=== PATIENT | male | born 1945 | race Caucasian/White ===

== ENCOUNTER 2019-08-20 14:40 | Outpatient (CLI) | payer MEDICARE, OTHER, SELFPAY ==
--- NOTE | 2019-08-20 14:57 | CT_ITS ---
WS: [id number] CT ANGIOGRAM CEREBRAL AND CAROTID ARTERIES HISTORY: DYSEQUILIBRIUM, HEAD INJURY TECHNIQUE: CT angiogram is performed of the carotid and cerebral arteries. During arterial injection imaging is obtained from the skull vertex to the aortic arch in 1.25 mm imaging. Coronal and sagittal reformats are submitted. Additional multi planar reformats of the carotid and cerebral arteries are submitted, MIP imaging also reviewed. NASCET criteria utilized. All CT scans at [facility] use at least one of these dose optimization techniques: automated exposure control; mA and/or kV ad justment per patient size (includes targeted exams where dose is matched to clinical indication); or iterative reconstruction. CONTRAST: Omnipaque 350; 95 mL IV. DLP: 2041.16 mGycm COMPARISON: MRI carotids 05/07/2019 Carotid Angiogram: Right carotid: Common carotid artery: Tortuous with mild intimal thickening. No stenosis Internal carotid artery: Mild atherosclerosis with no stenosis. External carotid artery: Patent. Left carotid: Common carotid artery: Mild narrowing of the origin from the arch. No significant stenosis. Portion o f the proximal common carotid artery is obscured by contrast artifact. Internal carotid artery: Mild calcified plaque. No stenosis. External carotid artery: Patent. Right vertebral artery: Unremarkable. Left vertebral artery: Unremarkable. Arises normally from the subclavian artery. Subclavian arteries: No central stenosis. Near the origin of the axillary artery cannot exclude steno sis due to artifact. Upper thorax: Normal. Thyroid gland: Mildly enlarged nodular thyroid. Osseous structures: Cervical spondylosis with degenerative changes in the disc. No fractures. Mild an terior wedging of T1. CEREBRAL ANGIOGRAM: Noncontrast examination of the brain is negative for infarct or mass. Moderate bilateral cerebral and cerebellar atrophy. Mild chronic microvascular ischemic disease. Intracranial vertebral arteries: Mild atherosclerosis of the distal RIGHT vertebral artery with no st enosis. Basilar artery: No significant stenosis or occlusion. No aneurysm. Intracranial Internal carotid arteries: No stenosis. Mild atherosclerotic plaque through the cavernou s sinuses. Middle cerebral arteries: Normal. Anterior cerebral arteries and ACOM: Normal. Posterior cerebral arteries and PCOM's: Normal. Dural venous sinuses are normally enhancing. Mastoid air cells: Normal. Paranasal sinuses: Normal. Calvarium: Normal. CT/CT angio headneck* [id number] IMPRESSION: 1. Bilateral carotid artery stenosis less than 50%. 2. Mild atherosclerosis intracranial carotid arteries through the cavernous si nuses. 3. Bilateral symmetric atrophy and volume loss in the cerebellum and cerebrum.
[2019-08-20 15:18] LABS: Blood Urea Nitrogen 10 mg/dL (8-23)
[2019-08-20] MEDS: iohexol 350 mg/mL 100 mL Btl IV (15:28)
== END 2019-08-20 14:41 | disposition home or self-care (01) ==
PROVIDERS: Radiology Diagnostic Radiology; Family Provider Family Medicine; PCP Family Medicine; Visit Provider Specialist
DX: I65.23 Occlusion and stenosis of bilateral carotid arteries (principal); R51 Headache; R42 Dizziness and giddiness
CPT/HCPCS: 70496; 70498; 82565; 84520; Q9967

== ENCOUNTER 2019-09-24 07:53 | Day surgery (SDC) | payer MEDICARE, OTHER, SELFPAY ==
[2019-09-23 14:06] VITALS: BMI 27.0
--- NOTE | 2019-09-24 08:14 | ANES.PREANE2 ---
Pre-Anesthetic Assessment Pre-Anesthetic Assessment: Height/Weight: Height 1.8 m Weight 87.997 kg Preop Diagnosis: Polyps and GERD Proposed Procedure: Operation Date: 09/24/19 09:30 Proposed Procedures p EGD poss Dilation/Colonscopy(Not Applicable) - Miguel Watson MD s Colonoscopy(Not Applicable) - Miguel Watson MD Familial anesthetic complications: No Was Beta Elsy taken within 24 hours: N/A Last intake: NPO except jello since monday NPO to liquids since 1000 pm Social: Social History: Tobacco and No alcohol Exam: Pre-Anes Outpt Exam: alert, oriented x 3, clear to auscultation bilaterally and regular rate & rhythm Airway: Cervical ROM: WNL MP: 4 Dentition: False Additional comments: large tongue Pulmonary: Pulmonary: Sleep apnea (CPAP) CV/HEM: CV/HEM: HTN : : None reported Hepatic: Hepatic: None reported GI: GI: GERD Comments: patient vomited up some of his prep yesterday, no longer having any active reflux of prep Metabolic: Metabolic: None reported Musc/skel: Comments: Hx of broken hip, tendency to fall so uses walker, falls have been worked up but are idiopathic, neck pain since a fall on august 04 - will see neurosurgeon in september. No fracture per patient Neuropsych: Comments: poor equilibrium - unknown etiology Anesthetic Plan: ASA status: 3 Anesthesia: MAC Risk of > 500 ml blood loss (7ml/kg in children): No PFSH Anesthesia PFSH: Social History Smoking and tobacco status: never smoked Alcohol intake: never Lives independently: Yes Household members: spouse Marital status: service: Yes Current occupational status: retired History of recent travel: No Data Anesthesia Cardiac Studies: No Data to Display
[2019-09-24 09:10] VITALS: BP 144/89; PULSE 92; RESP 18; TEMP 36.9; O2SAT 97
[2019-09-24] MEDS: sodium chloride 0.9% 1,000 ML 30 ML (09:15)
--- NOTE | 2019-09-24 11:34 | W.PM.OPSUD ---
Surgery/Procedure H&P Update DATE OF PROCEDURE: September 24, 2019 DATE H&P PERFORMED: 08/27/19 H&P UPDATE INFORMATION: I have reviewed H&P completed within last 30 days, I have examined patient prior to procedure and No changes to prior documentation PREOP DIAGNOSIS: Dysphagia GERD PLANNED PROCEDURE: Operation Date: 09/24/19 09:30 Proposed Procedures p EGD poss Dilation/Colonscopy(Not Applicable) - Miguel Watson MD s Colonoscopy(Not Applicable) - Miguel Watson MD
[2019-09-24 11:35] VITALS: BP 104/66; PULSE 80; RESP 16; TEMP 36.4; O2SAT 99
--- NOTE | 2019-09-24 11:40 | ANE.PACU2 ---
 Inpatient post-anesthesia follow up: Airway intact: Yes Vital signs: Temperature 98.5 F Pulse Rate 92 Respiratory Rate 18 Blood Pressure 144/89 Pulse Oximetry 97 Oxygen Delivery Me thod Room Air Oxygen Flow Rate Fraction of Inspir ed Oxygen Hydration adequate: Yes Nausea and vomiting: No Pain level: 1 Mental status: Baseline
[2019-09-24 11:51] VITALS: BP 129/80; PULSE 81; RESP 17; TEMP 36.3; O2SAT 97
== END 2019-09-24 12:24 | disposition home or self-care (01) ==
PROVIDERS: Family Provider Family Medicine; PCP Family Medicine; Visit Provider Surgery
PROC: 0DJD8ZZ Inspection of Lower Intestinal Tract, Via Natural or Artificial Opening Endoscopic (ICD-10-PCS; CPT 45378; 2019-09-24 09:30)
DX: K21.9 Gastro-esophageal reflux disease without esophagitis (principal); R13.10 Dysphagia, unspecified; K57.30 Diverticulosis of large intestine without perforation or abscess without bleeding; K64.8 Other hemorrhoids; K44.9 Diaphragmatic hernia without obstruction or gangrene; K29.70 Gastritis, unspecified, without bleeding; D12.0 Benign neoplasm of cecum; Z79.82 Long term (current) use of aspirin; N40.0 Benign prostatic hyperplasia without lower urinary tract symptoms; E78.5 Hyperlipidemia, unspecified; G47.30 Sleep apnea, unspecified; I10 Essential (primary) hypertension
CPT/HCPCS: 12345; 43235; 45385; 88305; J2704; J7030

== ENCOUNTER 2019-10-21 07:48 | Outpatient (CLI) | payer MEDICARE, OTHER, SELFPAY ==
--- NOTE | 2019-10-21 08:01 | MR_ITS ---
WS: [id number] MRI BRAIN WITH AND WITHOUT CONTRAST HISTORY: ABNORMAL FINDINGS ON DIAGNOSTIC IMAGING OF SKULL AND HEAD COMPARISON: 05/03/2019 and 08/20/2019 TECHNIQUE: Multiplanar imaging performed through the brain with Prohance 17 ml's IV. No acute infarcts are seen. Suarez-white matter differentiation is well preserved. Mild symmetric atrop hy. Increased CSF surrounding the frontal lobes from cerebral atrophy. No evidence for an acute or re mote extra-axial hemorrhage. No midline shift. Very mild chronic microvascular ischemic disease. No p rior infarct. No susceptibility artifacts or prior lacunar infarcts. Ventricles and extra-axial spaces are normal. Clivus and pituitary gland are normal. Visualized posterior fossa and brainstem are also normal. Postcontrast images are negative for masses or vascular malformations. Dural venous sinuses are normal. Paranasal sinuses: Small mucous retention cysts in the maxillary sinuses. Mild enhancement in the pos terior RIGHT ethmoid air cell. Very minimal mucoperiosteal thickening remaining sinuses. No air-fluid levels. Mastoid air cells: Normal. Calvarium and scalp: Normal. MR/MR head wo/w con [id number] IMPRESSION: 1. No acute infarct or mass. 2. Moderate atrophy similar to the prior study with mild chronic microvascular ischemic disease.
--- NOTE | 2019-10-21 08:01 | MR_ITS ---
WS: [id number] MRI CERVICAL SPINE with and without contrast HISTORY: CERVICAL STENOSIS OF SPINE COMPARISON: 05/03/2019. Multiplanar imaging of the cervical spine performed with and without contrast. New since the prior examination is 2.2 mm anterolisthesis of C2. Seen best on the STIR sagittal seque nce is increased fluid and mild widening of the C2-3 RIGHT facet joint. No marrow edema or fracture. Multilevel degenerative disc disease with osteophytes and disc bulging throughout the cervical spine from C3-4 to C6-7. Craniocervical junction, C1 and C2 relationship, odontoid process and soft tissues are normal. C2-C3: Normal. C3-C4: Diffuse osteophytic ridging and disc bulging. Moderate to severe bilateral foraminal stenosis, similar to the prior study. No significant central stenosis. C4-C5: Diffuse osteophytic ridging with effacement of the ventral thecal sac. Moderate to severe bila teral foraminal stenosis and mild central stenosis. C5-C6: Complete effacement of CSF due to osteophytic ridging and disc disease. Severe bilateral lizy inal stenosis, greatest on the RIGHT with mild central stenosis. Mild central stenosis. Similar to th e prior study. C6-C7: Diffuse osteophytic ridging and annular disc bulging. There is contact on the cord with severe bilateral foraminal stenosis and mild central stenosis. C7-T1: No significant stenosis. No evidence for discitis or osteomyelitis. No enhancing masses are identified. Posterior fossa is neg ative. MR/MR cervical spine wo/w [id number] IMPRESSION: 1. C2 anterolisthesis by 2.2 mm is new since 05/03/2019. There is increased flu id with mild widening of the RIGHT C2-3 facet joint. May be posttraumatic as liyah hsu had a recent history of trauma or secondary to inflammatory synovitis. 2. Multilevel osteophytic ridging and disc disease with stenoses. 3. No significant change in the moderate to severe bilateral foraminal stenosi s from C3-4 to C6-7. 4. Mild central stenosis from C4-5 to C6-7.
== END 2019-10-21 07:49 | disposition home or self-care (01) ==
LOC: RADWPI 07:53
PROVIDERS: Family Provider Family Medicine; PCP Family Medicine; Visit Provider Psychiatry & Neurology Neurology
DX: G31.89 Other specified degenerative diseases of nervous system (principal); M48.02 Spinal stenosis, cervical region; M25.78 Osteophyte, vertebrae; R93.0 Abnormal findings on diagnostic imaging of skull and head, not elsewhere classified
CPT/HCPCS: 70553; 72156; A9579

== ENCOUNTER 2019-10-24 13:59 | Outpatient (CLI) | payer MEDICARE, OTHER, SELFPAY ==
--- NOTE | 2019-10-24 14:29 | CT_ITS ---
WS: [id number] CT scan of the abdomen and pelvis with Oral and IV contrast. Additional two-dimensional coronal and s agittal reconstruction was performed. 10/24/2019 Clinical Data: ILEOCECAL MASS Comparison: CT abdomen and pelvis, 06/13/2018 DLP: 1259.[address] scans at [facility] use at least one of these dose optimization techniques: automat ed exposure control; mA and/or kV adjustment per patient size (includes targeted exams where dose is matched to clinical indication); or iterative reconstruction. Findings: The lower lungs show no nodules, masses or effusions. There is a moderate hiatal hernia with a small portion of the stomach within the thorax. The liver, gallbladder, spleen, adrenal glands and pancreas are normal. The kidneys show equal bilateral contrast excretion with no cysts, masses, hydronephrosis or renal ca lculi. The abdominal aorta is normal in size. No appendicitis or diverticulitis is seen. Oral contrast is in the stomach, small bowel and proximal colon, and there is no bowel dilatation. No abscess, adenopathy, ascites, mass, obstruction or free a ir is seen. There is no ileocecal mass present. There is a large amount of fecal material throughout the colon. The bladder is unremarkable. No inguinal hernia is seen. Degenerative change with a slight levoscoliosis of the lumbar vertebral bodies is seen. There is dege nerative disc disease at L3-L4 and L4-L5. There is a hip nail reducing a old left intertrochanteric f racture. CT/CT abdomen pelvis w con* [id number] Impression: 1. Negative for acute intra-abdominal or pelvic abnormalities. 2. Hiatal hernia. 3. Negative for ileocecal mass.
[2019-10-24] MEDS: iohexol 300 mg/mL 50 mL Btl IV (14:45)
--- NOTE | 2019-10-24 14:55 | FL_ITS ---
WS: [id number] Barium swallow and esophagram, 10/24/2019 Clinical Data: DYSPHAGIA, OTHER UNSPECIFIED GASTROINTESTINAL DISEASE Comparison: None. Fluoroscopy time: 0.9 minutes. Findings: The patient swallowed the thick and thin barium mixture, and it flowed through the hypopharynx withou t hesitation. No stricture, mass, polyp or erosion was seen. No aspiration or penetration occurred. M inimal osteoarthritis of the C3-C4 vertebral bodies impinge slightly on the posterior hypopharynx. The barium entered the esophagus and there was normal motility throughout. There was a large hiatal h ernia. No stricture, mass, polyp, erosion or fistula could be seen. There was an intrathoracic portio n of the stomach. Moderate reflux did occur. No erosion or ulceration could be seen. FL/FL barium swallow [id number] Impression: 1. Large hiatal hernia with a portion of the stomach intrathoracic. 2. Minimal reflux at the hiatal hernia. 3. Minimal impingement on the posterior hypopharynx at C3-C4.
[2019-10-24 15:28] LABS: Blood Urea Nitrogen 13 mg/dL (8-23)
[2019-10-24] MEDS: iohexol 300 mg/mL 100 mL Btl IV (15:43)
== END 2019-10-24 14:00 | disposition home or self-care (01) ==
LOC: CT 14:02
PROVIDERS: Family Provider Family Medicine; PCP Family Medicine; Visit Provider Surgery
DX: K63.89 Other specified diseases of intestine (principal); K44.9 Diaphragmatic hernia without obstruction or gangrene
CPT/HCPCS: 74177; 74220; 82565; 84520; Q9967

== ENCOUNTER 2019-10-28 16:18 | Emergency (ER) | payer MEDICARE, OTHER, SELFPAY ==
[2019-10-28 16:20] VITALS: BP 153/104; PULSE 97; RESP 18; TEMP 36.8; O2SAT 95; BMI 26.9
--- NOTE | 2019-10-28 16:47 | W.ED.FALL ---
HPI - Fall General: Chief Complaint: Fall Stated Complaint: FALL/ GROIN AND RIGHT HIP Time Seen by Provider: 10/28/19 16:47 History of Present Illness: HPI Narrative: 74-year-old male complains of left hip pain. Patient has had balance issues for several years. He has had multiple falls in the past. He is seen several different neurologists at other testing done not been able to find anything definitive and he continues to intermittently have falls despite several interventions. He fell about 45 minutes prior to arrival he has previously had a left hip arthroplasty he has pain on that hip but has been able to bear weight he is concerned he may have broke something. He denies any other injuries denies loss of consciousness. Associated symptoms-after fall: Denies abdominal pain or chest pain Review of Systems Const: Denies: fever, chills, body aches, change in appetite, fatigue or malaise ENMT: Denies: throat pain, ear pain, nasal discharge or nasal congestion Card: Denies: chest pain, edema, shortness of breath on exertion or shortness of breath when lying down Resp: Denies: shortness of breath, productive cough or non-productive cough GI: Denies: abdominal pain, nausea, vomiting, vomiting blood, coffee grounds in vomit, diarrhea, constipation, bloating, blood in stool or black tarry stool : Denies: flank pain, painful urination, urinary frequency or urinary urgency Musc: Reports: extremity pain and joint pain (Left hip) Skin/Breast: Denies: rash or itching PFS ED PFSH: Medical History BPH (benign prostatic hyperplasia) Cervical disc disorder with myelopathy of mid-cervical region GERD (gastroesophageal reflux disease) History of colon polyps History of torn meniscus of left knee (2019) Surgery Dr. Daigle History of torn meniscus of right knee Hyperlipidemia Intervertebral disc disorder with radiculopathy of lumbosacral region Lumbar stenosis with neurogenic claudication Surgical History H/O esophagogastroduodenoscopy 09/24/2019: Gastritis and hiatal hernia History of carpal tunnel release History of colonoscopy (~2006) 09/24/2019: Sigmoid diverticulosis, 2 cm sessile polyp at the ileocecal valve History of inguinal hernia repair Right History of open reduction and internal fixation (ORIF) procedure left hip History of spinal surgery 01/2011 [facility] L3-L4 lumbar decompression Family History Mother Diabetes Myocardial infarction Father Myocardial infarction Social History Smoking and tobacco status: former smoker Alcohol intake: never Household members: spouse Marital status: Current occupational status: retired History of recent travel: No Physical Exam Const: COMMON NORMALS: average body habitus, oriented x3 and alert GENERAL APPEARANCE: cooperative, comfortable, well kempt and well developed NUTRITIONAL APPEARANCE: obese ORIENTATION/CONSCIOUSNESS: Yes awake, Yes oriented to person and Yes oriented to place HENMT: COMMON NORMALS: normocephalic, head/scalp atraumatic, EAC's normal, TM's normal bilaterally, external nose normal, moist oral mucous membranes and oropharynx normal HEAD & SCALP: normocephalic and atraumatic NOSE: external nose normal EXTERNAL AUDITORY CANAL: EAC's normal TYMPANIC MEMBRANE: TM's normal bilaterally MOUTH: oral and palatal mucosa normal, lip normal and tongue normal THROAT: posterior oropharynx normal and tonsils normal Eye: COMMON NORMALS: PERRL, EOMs intact bilaterally, conjunctivae normal and no scleral icterus CONJUNCTIVA: Yes conjunctivae normal PUPIL: Yes PERRL Neck/C-Spine: COMMON NORMALS: full ROM, no lymphadenopathy, supple, no meningeal signs and thyroid normal THYROID: thyroid normal and asymmetrical Lymph: LYMPHATIC: no lymphadenopathy noted Resp: COMMON NORMALS: normal respiratory effort, no retractions, no use of accessory muscles and clear to auscultation bilaterally AUSCULTATION: clear to auscultation bilaterally Cardio: COMMON NORMALS: regular rate and regular rhythm RATE: regular rate RHYTHM: regular rhythm HEART SOUNDS: no murmurs GI: COMMON NORMALS: normal to inspection, nondistended, normoactive bowel sounds, soft to palpation and no hepatosplenomegaly PALPATION: Yes soft and Yes no hepatosplenomegaly : COMMON NORMALS: Yes no CVA tenderness BLADDER/KIDNEY EXAM: Yes no CVA tenderness Back/Pelvis: COMMON NORMALS: no CVA tenderness LUMBAR SPINE/LOWER BACK: Yes normal to inspection Extremity: COMMON NORMALS: no clubbing, cyanosis or edema, no calf tenderness and no pedal edema Neuro: COMMON NORMALS: oriented x3 SENSORIUM/ORIENTATION: Yes alert, Yes oriented to person and Yes oriented to place MENINGEAL SIGNS: Yes no meningeal signs Psych: APPEARANCE: Yes well kempt Skin: COMMON NORMALS: no rashes or lesions noted and skin turgor normal GENERAL SKIN EXAM: no rashes or lesions noted and turgor normal Course Vital Signs: Vital signs: Vital Signs Temperature 98.2 F 10/28/19 16:20 Pulse Rate 78 10/28/19 17:45 Respiratory Rate 16 10/28/19 17:45 Blood Pressure 149/86 10/28/19 17:45 Pulse Oximetry 98 10/28/19 17:45 MDM - Fall MDM Narrative: Medical decision making narrative: No acute fractures. Hardware is in place without any loosening. Go ahead and discharge home I suspect he has some soft tissue bruising from projection where the lag screw is in the femoral neck advised him he can use cold and oral pain medications. Discharge Plan Discharge Patient Disposition: Home, Self-Care Clinical Impression: Acute hip pain, Fall Condition: Stable Prescriptions: No Action cholecalciferol (vitamin D3) 400 unit capsule 800 unit PO DAILY RF: 0 omeprazole 20 mg capsule,delayed release(DR/EC) 40 mg PO DAILY RF: 0 losartan 25 mg tablet 25 mg PO DAILY RF: 0 clonazepam 0.5 mg tablet 0.75 mg PO BEDTIME RF: 0 multivitamin Capsule 1 cap PO DAILY RF: 0 dutasteride 0.5 mg capsule 0.5 mg PO DAILY RF: 0 aspirin [Adult Low Dose Aspirin] 81 mg tablet,delayed release (DR/EC) 81 mg PO DAILY RF: 0 simvastatin 20 mg tablet 20 mg PO BEDTIME RF: 0 Referrals: Mynor Tesfaye MD [Primary Care Provider] - Discharge Diet: Usual diet Discharge Activity: Increase activity as tolerated Activity Restrictions/Additional Instructions: Follow-up with your primary care doctor in the next 4 to 5 days if not improving increase activity as tolerated Discharge Date/Time: 10/28/19 17:46 Coding Level of Care Code ED Concaving Machine Operator for Jane Marks
--- NOTE | 2019-10-28 16:56 | XR_ITS ---
WS: [id number] LEFT HIP HISTORY: fall/pain COMPARISON: 02/16/2019 LEFT hip: Status post long intramedullary prashant and femoral neck screw. Bones are osteopenic. No hardwa re failure. No fractures identified. No soft tissue abnormality. XR/XR hip LT 2-3V wo/w pel* [id number] IMPRESSION: 1. No hip fracture. 2. Status post ORIF prior LEFT hip fracture. No hardware failure.
[2019-10-28 17:45] VITALS: BP 149/86; PULSE 78; RESP 16; O2SAT 98
== END 2019-10-28 17:46 | disposition home or self-care (01) ==
PROVIDERS: Emergency Provider Family Medicine; Family Provider Family Medicine; PCP Family Medicine
DX: M25.552 Pain in left hip (principal); M50.020 Cervical disc disorder with myelopathy, mid-cervical region, unspecified level; M48.062 Spinal stenosis, lumbar region with neurogenic claudication; M51.17 Intervertebral disc disorders with radiculopathy, lumbosacral region; Z79.82 Long term (current) use of aspirin; Z98.890 Other specified postprocedural states; Z87.891 Personal history of nicotine dependence
CPT/HCPCS: 12345; 73502; 99281; 99282

== ENCOUNTER 2019-11-06 08:43 | Outpatient (CLI) | payer MEDICARE, OTHER, SELFPAY ==
--- NOTE | 2019-11-06 09:09 | XR_ITS ---
WS: [id number] LATERAL LUMBAR SPINE: 3 view. Lateral radiographs are performed in upright neutral, flexion and extension to the patient's toleranc e. HISTORY: LOW BACK PAIN COMPARISON: None available. Straightening of the normal lumbar lordosis. Advanced degenerative disc space narrowing and desiccati on at L4-5 and L5-S1. No fracture. Facet joint arthritis throughout the lumbar spine. With flexion an d extension there is no instability. Scattered calcifications in aorta. XR/XR lumbar spine f/e only [id number] IMPRESSION: 1. Advanced degenerative disc disease at L4-5 and L5-S1. 2. No lumbar spine instability.
--- NOTE | 2019-11-06 09:09 | MR_ITS ---
WS: [id number] MRI LUMBAR SPINE WITH AND WITHOUT CONTRAST HISTORY: Low back pain COMPARISON: 05/09/2019 TECHNIQUE: Sagittal and axial multisequence imaging is submitted. Postcontrast imaging also. RIGHT convex curvature thoracic spine and LEFT convex curvature lumbar spine. Degenerative disc disea se and osteophytosis throughout the mid to lower cervical spine and thoracic spine. At T7-T8 there is a disc protrusion with mild contact on the ventral thecal sac. Posterior lumbar alignment is near normal. Less than 2 mm retrolisthesis of L3. Advanced degenerative disc disease at L3-4, L4-5 and L5-S1. No marrow edema or acute fracture. Conus terminates normally at L2. L1-L2: Normal. L2-L3: Mild annular disc bulging and osteophytic ridging. Disc bulging is asymmetric to the LEFT. Mil d encroachment upon the LEFT subarticular recess with moderate ligamentum flavum hypertrophy and face t joint fluid. Mild bilateral foraminal narrowing. L3-L4: Diffuse osteophytic ridging and disc bulging. Large posterior laminectomy defects. Wide thecal sac with clumping of the nerve roots centrally. Moderate facet joint arthritis. Osteophyte and disc disease causing at least moderate RIGHT foraminal stenosis and mild on the LEFT. L4-L5: Diffuse annular disc bulging and osteophytosis. Nerve roots remain clumped in the thecal sac m oderate RIGHT and mild LEFT foraminal stenosis. Mild encroachment upon the ventral thecal sac. Mild s ubarticular recess stenosis. L5-S1: Diffuse osteophytic ridging. Facet joint arthritis. Facet osteophytes encroach upon the thecal sac. There is an osteophyte abutting the LEFT S1 nerve root. Mild bilateral foraminal stenosis. Postcontrast images are negative for discitis or osteomyelitis. Normal postoperative gliosis at the L 3-4 level level of the laminectomy defect. MR/MR lumbar spine wo/w con [id number] IMPRESSION: 1. Status post large laminectomy defects at L3-4. No recurrent central stenosi s. 2. No evidence for discitis or osteomyelitis. 3. Advanced degenerative disc disease and facet arthritis from L3 to L5. 4. Mild bilateral foraminal narrowing LEFT subarticular recess narrowing at L2 -3. Not significantly progressed. 5. Moderate RIGHT foraminal stenosis at L3-4 due to disc osteophyte disease. S imilar to the prior study. 6. Osteophytes encroach upon the S1 nerve roots bilaterally, LEFT greater than RIGHT with mild bilateral foraminal stenosis. Similar to the prior study. 7. Moderate RIGHT with mild LEFT foraminal stenosis, mild central and mild sub articular recess stenosis at L4-5, similar to the prior study.
== END 2019-11-06 08:44 | disposition home or self-care (01) ==
LOC: RADWPI 08:46
PROVIDERS: Family Provider Family Medicine; PCP Family Medicine; Visit Provider Licensed Practical Nurse
DX: M54.5 Low back pain (principal); M51.37 Other intervertebral disc degeneration, lumbosacral region; M48.061 Spinal stenosis, lumbar region without neurogenic claudication; M25.78 Osteophyte, vertebrae
CPT/HCPCS: 72120; 72158; A9579

== ENCOUNTER 2019-11-06 08:47 | Outpatient (CLI) | payer MEDICARE, OTHER, SELFPAY ==
--- NOTE | 2019-11-06 09:07 | CT_ITS ---
WS: [id number] CT LEFT HIP, NONCONTRAST HISTORY: HIP PAIN LEFT, pain, fell 9 days ago. Technique: All CT scans at [facility] use at least one of these dose optimization techniq ues: automated exposure control; mA and/or kV adjustment per patient size (includes targeted exams wh ere dose is matched to clinical indication); or iterative reconstruction. DLP: 1766.77 mGycm COMPARISON: 10/24/2019 CT pelvis and LEFT hip radiograph 10/28/2019. Long intramedullary femoral prashant. Single screw through the femoral neck. Orthopedic hardware is intact . No fracture along the site of the hardware. Mild degenerative air in the SI joints bilaterally. Nondisplaced fracture involving the superior colu mn of the LEFT acetabulum. Not evident on the recent radiographic series. Very slight buckling of the inferior pubic rami. On the 3-D imaging there is a lucency through the lateral LEFT ilium. Not confi rmed on the 2-D imaging. May be an artifact. Fat-containing LEFT inguinal canal. No free fluid in the pelvis identified. Notified Mynor Tesfaye MD at 11/06/2019 9:[address]/CT hip LT wo con* [id number] IMPRESSION: 1. Nondisplaced fracture involving the superior column of the LEFT acetabulum. 2. Slight buckling of the inferior pubic rami but no fracture identified.
== END 2019-11-06 08:48 | disposition home or self-care (01) ==
PROVIDERS: Family Provider Family Medicine; PCP Family Medicine; Visit Provider Family Medicine
DX: M25.552 Pain in left hip (principal); S32.492A Other specified fracture of left acetabulum, initial encounter for closed fracture; X58.XXXA Exposure to other specified factors, initial encounter
CPT/HCPCS: 73700

== ENCOUNTER → 2019-11-19 09:40 | Outpatient (BNVA) | payer MEDICARE, OTHER, SELFPAY | PROVIDERS: Family Provider Family Medicine; PCP Family Medicine; Referring Provider Family Medicine; Visit Provider Specialist | DX: S32.402A Unspecified fracture of left acetabulum, initial encounter for closed fracture (principal) | CPT/HCPCS: 73502 ==

== ENCOUNTER 2019-12-02 10:32 | Outpatient (CLI) | payer MEDICARE, OTHER, SELFPAY ==
--- NOTE | 2019-12-02 10:45 | CT_ITS ---
WS: [id number] CT LEFT HIP, NONCONTRAST. HISTORY: fracture Technique: All CT scans at [facility] use at least one of these dose optimization techniq ues: automated exposure control; mA and/or kV adjustment per patient size (includes targeted exams wh ere dose is matched to clinical indication); or iterative reconstruction. DLP: 1510.04 mGycm COMPARISON: 11/06/2019 Long intramedullary prashant and single femoral neck screw remain in good position. No hardware fracture. Again noted is a nondisplaced fracture extending through the acetabulum. Fracture involves the anteri or and superior acetabulum. There is healing along the fracture and the fracture is becoming less merced arent as compared to the prior study. No fragmentation or loose body in the joint space. There is a healing fracture now evident in the inferior pubic rami with a previous [place] was descri bed. Sclerotic margin involving the parasymphyseal pubic rami consistent with a healing fracture. Sigmoid diverticulosis. Small hydrocele. Moderate vascular calcifications in the femoral artery. CT/CT hip LT wo con* [id number] IMPRESSION: 1. Healing nondisplaced LEFT acetabular fracture. 2. Healing fracture involving the inferior pubic rami and the LEFT parasymphys eal portion of the pubic rami.
== END 2019-12-02 10:33 | disposition home or self-care (01) ==
PROVIDERS: Family Provider Family Medicine; PCP Family Medicine; Visit Provider Specialist
DX: S32.401A Unspecified fracture of right acetabulum, initial encounter for closed fracture (principal); X58.XXXA Exposure to other specified factors, initial encounter; S32.592A Other specified fracture of left pubis, initial encounter for closed fracture
CPT/HCPCS: 73700

== ENCOUNTER → 2019-12-04 10:00 | Outpatient (BNVA) | payer MEDICARE, OTHER, SELFPAY | PROVIDERS: Family Provider Family Medicine; PCP Family Medicine; Visit Provider Specialist | DX: M23.301 Other meniscus derangements, unspecified lateral meniscus, left knee (principal) | CPT/HCPCS: 73562 ==

== ENCOUNTER 2020-01-23 11:31 | Outpatient (RCR) | payer MEDICARE, OTHER, SELFPAY | END 2020-01-28 23:59 | disposition home or self-care (01) | LOC: SPT 11:31 | PROVIDERS: PCP Family Medicine; Referring Provider Specialist; Visit Provider Specialist | DX: Z47.89 Encounter for other orthopedic aftercare (principal); S72.092D Other fracture of head and neck of left femur, subsequent encounter for closed fracture with routine healing; X58.XXXD Exposure to other specified factors, subsequent encounter | CPT/HCPCS: 97162 ==

== ENCOUNTER 2020-01-28 14:48 | Outpatient (CLI) | payer MEDICARE, OTHER, SELFPAY ==
--- NOTE | 2020-01-28 15:02 | XR_ITS ---
WS: [id number] DEXA (DUAL ENERGY X-RAY ABSORPTIOMETRY) Bone mineral density was performed using a Microbion machine. HISTORY: OSTEOPOROSIS COMPARISON: None available. Lumbar spine BMD (L1-L4): 0.911 g/cm2 T score: -2.6 Z score: -2.1 Total hip BMD: Right: 0.556. T score: -3.8 Z score: -2.9 10 year probability of a major osteoporotic fracture is 27%. XR/XR DEXA axial skeleton* [id number] IMPRESSION: OSTEOPOROSIS. Patient has significant increased risk for fracture.
== END 2020-01-28 14:49 | disposition home or self-care (01) ==
LOC: RADWPI 14:53
PROVIDERS: Family Provider Family Medicine; PCP Family Medicine; Visit Provider Family Medicine
DX: M81.0 Age-related osteoporosis without current pathological fracture (principal)
CPT/HCPCS: 77080

== ENCOUNTER 2020-01-29 06:00 | Outpatient (RCR) | payer MEDICARE, OTHER, SELFPAY | END 2020-02-28 23:59 | disposition home or self-care (01) | LOC: SPT 06:00 | PROVIDERS: Family Provider Family Medicine; PCP Family Medicine; Referring Provider Specialist; Visit Provider Specialist | DX: Z47.89 Encounter for other orthopedic aftercare (principal); S72.002D Fracture of unspecified part of neck of left femur, subsequent encounter for closed fracture with routine healing; X58.XXXD Exposure to other specified factors, subsequent encounter | CPT/HCPCS: 97110 ==

== ENCOUNTER → 2020-02-20 15:12 | Outpatient (BNVA) | payer MEDICARE, OTHER, SELFPAY | PROVIDERS: Family Provider Family Medicine; PCP Family Medicine; Referring Provider Dermatology; Visit Provider Dermatology | DX: D48.9 Neoplasm of uncertain behavior, unspecified (principal); L57.0 Actinic keratosis; D69.2 Other nonthrombocytopenic purpura; L56.8 Other specified acute skin changes due to ultraviolet radiation; L82.0 Inflamed seborrheic keratosis; Z85.828 Personal history of other malignant neoplasm of skin | CPT/HCPCS: 11102; 17004; 88304; 88305; 99203; 99204 ==

== ENCOUNTER → 2020-02-27 09:31 | Outpatient (BNVA) | payer MEDICARE, OTHER, SELFPAY | PROVIDERS: Family Provider Family Medicine; PCP Family Medicine; Visit Provider Specialist | DX: M17.12 Unilateral primary osteoarthritis, left knee (principal) | CPT/HCPCS: 73560; 73565 ==

== ENCOUNTER 2020-02-29 06:00 | Outpatient (RCR) | payer MEDICARE, OTHER, SELFPAY | END 2020-03-30 23:59 | disposition home or self-care (01) | LOC: SPT 06:00 | PROVIDERS: PCP Family Medicine; Referring Provider Specialist; Visit Provider Specialist | DX: Z47.89 Encounter for other orthopedic aftercare (principal); S32.402D Unspecified fracture of left acetabulum, subsequent encounter for fracture with routine healing; X58.XXXD Exposure to other specified factors, subsequent encounter | CPT/HCPCS: 97110; 97112 ==

== ENCOUNTER → 2020-03-05 10:56 | Outpatient (BNVA) | payer MEDICARE, OTHER, SELFPAY | PROVIDERS: Family Provider Family Medicine; PCP Family Medicine; Visit Provider Dermatology | DX: D03.9 Melanoma in situ, unspecified (principal); L57.0 Actinic keratosis; D48.9 Neoplasm of uncertain behavior, unspecified | CPT/HCPCS: 11602; 12032; 17000; 17003; 88304; 88305; 99212; 99213 ==

== ENCOUNTER → 2020-03-19 12:44 | Outpatient (BNVA) | payer MEDICARE, OTHER, SELFPAY | PROVIDERS: PCP Family Medicine; Visit Provider Dermatology | DX: Z48.02 Encounter for removal of sutures (principal) | CPT/HCPCS: 99212 ==

== ENCOUNTER 2020-03-31 06:00 | Outpatient (RCR) | payer MEDICARE, OTHER, SELFPAY | END 2020-04-29 23:59 | disposition home or self-care (01) | LOC: SPT 06:00 | PROVIDERS: PCP Family Medicine; Referring Provider Specialist; Visit Provider Specialist | DX: Z47.89 Encounter for other orthopedic aftercare (principal); S32.402D Unspecified fracture of left acetabulum, subsequent encounter for fracture with routine healing; X58.XXXD Exposure to other specified factors, subsequent encounter | CPT/HCPCS: 97110 ==

== ENCOUNTER → 2020-04-09 09:06 | Outpatient (BNVA) | payer MEDICARE, OTHER, SELFPAY | PROVIDERS: PCP Family Medicine; Visit Provider Internal Medicine Rheumatology | DX: M81.0 Age-related osteoporosis without current pathological fracture (principal); Z79.899 Other long term (current) drug therapy; Z91.81 History of falling; M18.0 Bilateral primary osteoarthritis of first carpometacarpal joints | CPT/HCPCS: 36415; 85025; 99203 ==

== ENCOUNTER 2020-04-14 19:17 | Emergency (ER) | payer MEDICARE, OTHER, SELFPAY ==
[2020-04-14 19:25] VITALS: BP 151/71; PULSE 83; RESP 18; TEMP 36.6; O2SAT 97; BMI 26.7
[2020-04-14 19:43] VITALS: BP 138/75; PULSE 76; RESP 16; O2SAT 97
--- NOTE | 2020-04-14 19:56 | ED_ITS ---
HPI - General Adult General: Chief complaint: General Medical Stated complaint: ABNORMAL LABS Time Seen by Provider: 04/14/20 19:53 Source: patient, family and RN notes reviewed History of Present Illness: HPI narrative: 74-year-old male sent in by his innersole fitter after he had blood drawn today and lab called his innersole fitter and reported a low calcium. Patient denies any symptoms. Specifically denies any focal weakness or tingling around his lips or in his extremities. He has generalized weakness which is unchanged. No nausea or vomiting. No new chest pain or shortness of breath. Associated symptoms: Deny chest pain, dyspnea, headache(s), nausea, rash or vomiting Review of Systems General: Reports: 10 or more systems reviewed and unremarkable except in HPI and below Const: Denies: fever(s), chills or body aches Eyes: Denies: change in vision ENMT: Denies: throat pain Card: Denies: chest pain Resp: Denies: dyspnea GI: Denies: abdominal pain, nausea, vomiting or change in bowel habits : Denies: flank pain Musc: Denies: muscle weakness Skin/Breast: Denies: rash Neuro: Reports: difficulty walking; Denies: headache(s) or sensory changes Psych: Denies: hopelessness or suicidal ideation Endo: Denies: polyuria Kun/Lymph: Denies: easy bruising or easy bleeding All/Imm: Denies: urticaria PFSH ED PFSH: Medical History (Updated 04/14/20 @ 20:16 by Nahomy Teague MD) Basal cell carcinoma BPH (benign prostatic hyperplasia) Cervical disc disorder with myelopathy of mid-cervical region GERD (gastroesophageal reflux disease) GERD (gastroesophageal reflux disease) H/O fracture of pelvis History of colon polyps History of torn meniscus of left knee (2019) Surgery Dr. Daigle History of torn meniscus of right knee Hyperlipidemia Intervertebral disc disorder with radiculopathy of lumbosacral region Lumbar disc disease Lumbar stenosis with neurogenic claudication Osteoporosis Surgical History H/O esophagogastroduodenoscopy 09/24/2019: Gastritis and hiatal hernia History of carpal tunnel release History of colonoscopy (~2006) 09/24/2019: Sigmoid diverticulosis, 2 cm sessile polyp at the ileocecal valve History of inguinal hernia repair Right History of open reduction and internal fixation (ORIF) procedure left hip History of spinal surgery 01/2011 [facility] L3-L4 lumbar decompression Family History (Updated 04/09/20 @ 09:50 by Fay Hollis LPN) Mother Diabetes Myocardial infarction Father Myocardial infarction Other CAD (coronary artery disease) Denies family history of Rheumatoid arthritis Lupus Anesthesia complication Bleeding disorder Cancer Social History Smoking and tobacco status: former smoker Quit status (tobacco): has quit using tobacco Year quit tobacco: 1970 Alcohol intake: never Household members: spouse Marital status: Current occupational status: retired History of recent travel: No Physical Exam Const: COMMON NORMALS: no acute distress, average body habitus, patient oriented x3, no limitations, healthy appearing, alert and well nourished HENMT: COMMON NORMALS: normocephalic, external ears normal and Normal external nose present HEAD & SCALP: normocephalic NOSE: Normal external nose present EXTERNAL EAR: Yes external ears normal MOUTH: Normal oral and palatal mucosa present THROAT: posterior oropharynx normal Eye: COMMON NORMALS: Equal, round and reactive pupils present, EOMs intact bilaterally, conjunctivae normal, no scleral icterus and normal visual medina by confrontation CONJUNCTIVA: Yes conjunctivae normal PUPIL: Yes Equal, round and reactive pupils present Neck/C-Spine: COMMON NORMALS: full ROM, no lymphadenopathy, supple, no meningeal signs and no JVD CERVICAL SPINE: Yes cervical ROM normal Lymph: LYMPHATIC: no lymphadenopathy noted Chest: COMMONS NORMALS: normal inspection of the chest Resp: COMMON NORMALS: normal respiratory effort, No retractions, No use of accessory muscles and clear to auscultation bilaterally AUSCULTATION: clear to auscultation bilaterally Cardio: COMMON NORMALS: no JVD, regular rate, regular rhythm, No gallops present (Cardio), No clicks present (Cardio), No murmurs present (Cardio) and No rub (Cardio) RATE: regular rate RHYTHM: regular rhythm GI: COMMON NORMALS: Normal to inspection, nondistended, normoactive bowel sounds present, Soft to palpation and non-tender AUSCULTATION: Yes normoactive bowel sounds PALPATION: Yes Soft to palpation : COMMON NORMALS: Yes no CVA tenderness BLADDER/KIDNEY EXAM: Yes no CVA tenderness Back/Pelvis: COMMON NORMALS: no CVA tenderness Extremity: COMMON NORMALS: normal to inspection Neuro: COMMON NORMALS: patient oriented x3 SENSORIUM/ORIENTATION: Yes alert MENINGEAL SIGNS: Yes no meningeal signs SPEECH: speech normal Psych: COMMON NORMALS: mental status grossly normal, Normal thought process present, cooperative, normal affect, speech normal, activity/motor behavior normal, denies hallucinations, denies homicidal ideation and denies suicidal ideation SPEECH: Yes normal speech THOUGHT PROCESS: Normal thought process present Skin: COMMON NORMALS: no rashes or lesions noted GENERAL SKIN EXAM: no rashes or lesions noted Course Vital Signs: Vital signs: Vital Signs Temperature 97.8 F 04/14/20 19:25 Pulse Rate 76 04/14/20 19:43 Respiratory Rate 16 04/14/20 19:43 Blood Pressure 138/75 04/14/20 19:43 Pulse Oximetry 97 04/14/20 19:43 MDM - General Adult MDM Narrative: Medical decision making narrative: Discussed with his innersole fitter that directed him to come to the emergency department. EKG is normal. His innersole fitter thought that when the lab called that his serum calcium was low not PTH intact calcium. Patient is asymptomatic will discharge home. EKG Data^: EKG 1: Attestation: I personally reviewed and interpreted this EKG as follows: Interpretation: EKG obtained 14 April 2020 at 1950 interpreted by me on same date at 1954. Normal sinus rhythm rate 75 right bundle branch block normal QTC of 437 Discharge Plan Discharge Patient Disposition: Home Clinical Impression: Abnormal laboratory test result Condition: Stable Prescriptions: No Action ropinirole 0.25 mg tablet 1 mg PO TID RF: 0 clonazepam 0.5 mg tablet 0.75 mg PO BEDTIME RF: 0 multivitamin Capsule 1 cap PO DAILY RF: 0 dutasteride 0.5 mg capsule 0.5 mg PO DAILY RF: 0 aspirin [Adult Low Dose Aspirin] 81 mg tablet,delayed release (DR/EC) 81 mg PO DAILY RF: 0 simvastatin 20 mg tablet 20 mg PO BEDTIME RF: 0 sucralfate 1 gram tablet 1 gm PO TID RF: 0 pantoprazole 40 mg tablet,delayed release (DR/EC) 80 mg PO DAILY RF: 0 citalopram 20 mg tablet 20 mg PO DAILY RF: 0 sodium chloride 1 gram tablet 1,000 mg PO TID RF: 0 diclofenac sodium 1 % gel 2 gm TOPICAL QID Qty: 100 RF: 2 cholecalciferol (vitamin D3) 50 mcg (2,000 unit) capsule 50 mcg PO DAILY Qty: 30 RF: 5 hydrochlorothiazide 12.5 mg capsule 12.5 mg PO DAILY RF: 0 Discharge Orders: Discharge Order (Routine); Ordered 04/14/20 Ordered By: Nahomy Teague Referrals: Mynor Tesfaye MD [Primary Care Provider] - Discharge Diet: Usual diet Discharge Activity: Resume usual activity Activity Restrictions/Additional Instructions: Keep any follow-up appointments that are already set up. Discharge Date/Time: 04/14/20 20:26 Coding Level of Care Code ED Sole Conforming Machine Operator for Chg Fwd Exam Comprehensive
[2020-04-14 20:26] VITALS: BP 152/70; PULSE 70; RESP 15; TEMP 36.6; O2SAT 97
== END 2020-04-14 20:26 | disposition home or self-care (01) ==
PROVIDERS: Emergency Provider Emergency Medicine; PCP Family Medicine
DX: Z00.01 Encounter for general adult medical examination with abnormal findings (principal); Z79.82 Long term (current) use of aspirin; E78.5 Hyperlipidemia, unspecified; Z87.891 Personal history of nicotine dependence
CPT/HCPCS: 12345; 36415; 80076; 82306; 82310; 82565; 83970; 84100; 84439; 84443; 85025; 85651; 86140; 99282

== ENCOUNTER 2020-04-16 10:05 | Outpatient (CLI) | payer MEDICARE, OTHER, SELFPAY ==
--- NOTE | 2020-04-16 | CT_ITS ---
WS: [id number] CT HEAD TECHNIQUE: Noncontrast CT of the head obtained from the skullbase to the vertex. CLINICAL INFORMATION: POST TRAUMATIC COMPARISON: MRI October 21, 2019 DLP: 992.[address] scans at [facility] use at least one of these dose optimization techniques: automat ed exposure control; mA and/or kV adjustment per patient size (includes targeted exams where dose is matched to clinical indication); or iterative reconstruction. FINDINGS: No evidence of intracranial hemorrhage or mass effect. Ventricular system and basal cisterns are parks nt. Mild small vessel changes with moderate parenchymal volume loss. Chronic lacunar infarct left cor phuong radiata. No extra-axial fluid collections. No evidence of mass or mass effect. Normal olivarez-white differentiation. Paranasal sinuses and mastoid air cells are well aerated. .Normal visualized soft tissues. CT/CT head wo con* [id number] IMPRESSION: 1. No evidence of intracranial hemorrhage or mass effect. 2. Mild small vessel changes. Moderate parenchymal volume loss. 3. No acute intracranial findings.
--- NOTE | 2020-04-16 10:21 | XR_ITS ---
WS: [id number] CERVICAL SPINE TECHNIQUE: 3 views of the cervical spine CLINICAL INFORMATION: ACUTE NECK PAIN COMPARISON: FINDINGS: Osteopenia. Straightening of the normal cervical lordosis. Mild spondylitic changes. Disc space narro wing worse at C3-C4 C4-C5 C5-C6 and C6-C7. Normal prevertebral soft tissues. Normal C1-C2 articulatio n. Slight anterolisthesis C3 on C4 in flexion measuring 2 mm. This returns to neutral in extension. M oderate spondylitic changes cervical spine with facet arthropathy in the mid cervical spine. XR/XR cervical spine min 6V [id number] IMPRESSION: 1. Slight anterolisthesis C3 on C4 in flexion measuring 2 mm. 2. Osteopenia. 3. Moderate spondylitic changes cervical spine.
== END 2020-04-16 10:06 | disposition home or self-care (01) ==
LOC: RADWPI 10:08
PROVIDERS: PCP Family Medicine; Visit Provider Family Medicine
DX: R51 Headache (principal); M54.2 Cervicalgia; M85.80 Other specified disorders of bone density and structure, unspecified site
CPT/HCPCS: 36415; 70450; 72052; 82310

== ENCOUNTER → 2020-04-23 08:24 | Outpatient (BNVA) | payer MEDICARE, OTHER, SELFPAY | PROVIDERS: PCP Family Medicine; Visit Provider Dermatology | DX: Z85.820 Personal history of malignant melanoma of skin (principal); L57.0 Actinic keratosis; B35.1 Tinea unguium; L82.1 Other seborrheic keratosis | CPT/HCPCS: 17000; 17003; 99213 ==

== ENCOUNTER 2020-05-12 15:27 | Outpatient (CLI) | payer MEDICARE, OTHER, SELFPAY ==
[2020-05-12 15:30] VITALS: BP 150/74; PULSE 68; RESP 14; TEMP 36.2; O2SAT 98
[2020-05-12] MEDS: denosumab 60 mg SDV SUBCUT (15:35)
[2020-05-12 15:41] VITALS: BMI 26.7
[2020-05-12 16:10] VITALS: BP 170/72; PULSE 55; RESP 16; TEMP 36.8; O2SAT 96
--- NOTE | 2020-05-12 16:35 | PC.NURSE ---
Pt states his blood pressure drops when he stands up. Physician currently adjusting medications. Pt assisted out of recliner and stood prior to ambulating. Escorted pt to lobby to meet his .
== END 2020-05-12 15:28 | disposition home or self-care (01) ==
LOC: RHEOACUTE 15:28
PROVIDERS: PCP Family Medicine; Visit Provider Internal Medicine Rheumatology
DX: M81.0 Age-related osteoporosis without current pathological fracture (principal)
CPT/HCPCS: 96372; J0897

== ENCOUNTER → 2020-06-07 10:31 | Outpatient (BNVA) | payer MEDICARE, SELFPAY | PROVIDERS: PCP Family Medicine; Visit Provider Emergency Medicine | DX: Z11.59 Encounter for screening for other viral diseases (principal) | CPT/HCPCS: 87635 ==

== ENCOUNTER 2020-06-11 06:00 | Outpatient (RCR) | payer MEDICARE, OTHER, SELFPAY | END 2020-06-29 23:59 | disposition home or self-care (01) | LOC: SPT 06:00 | PROVIDERS: PCP Family Medicine; Referring Provider Orthopaedic Surgery; Visit Provider Orthopaedic Surgery | DX: M54.2 Cervicalgia (principal) | CPT/HCPCS: 97110; 97140; 97161 ==

== ENCOUNTER 2020-06-24 15:44 | Outpatient (CLI) | payer MEDICARE, OTHER, SELFPAY ==
--- NOTE | 2020-06-24 | MR_ITS ---
WS: [id number] MRI BRAIN WITHOUT CONTRAST HISTORY: SLURRED SPEECH COMPARISON: 10/21/2019, 05/03/2019 TECHNIQUE: Diffusion imaging, multiplanar T1, T2 and FLAIR imaging obtained. No evidence for acute infarct or hemorrhage. Suarez-white matter differentiation is normal. Symmetric atrophy bilaterally but greatest involving the frontotemporal lobes. Tiny lacunar infarcts in the periventricular white matter bilaterally and in the LEFT basal ganglia versus small perivascul ar spaces. Small lacunar infarct in the RIGHT caudate body. Ventricles and extra-axial spaces are normal. No inferior displacement of cerebellar tonsils. The sella turcica and pituitary gland are unremarkabl e. Posterior fossa is also unremarkable. Dural venous sinuses and [place] demonstrate no abnormality on this unenhanced studies. Paranasal sinuses: Small mucous retention cysts in the maxillary sinuses. Mastoid air cells: Normal. Calvarium and scalp: Intact. MR/MR head wo con* [id number] IMPRESSION: 1. No acute infarct or hemorrhage. 2. Symmetric atrophy greatest involving the frontotemporal lobes is stable. 3. Mild chronic microvascular ischemic disease. 4. No interval change since 05/03/2019.
--- NOTE | 2020-06-24 | MR_ITS ---
WS: [id number] MRA ANGIOGRAPHY [place] HISTORY: SLURRED SPEECH COMPARISON: 05/07/2019 TECHNIQUE: 3-D MR angiography is performed of the [place]. All images are reviewed including source images. Distal vertebral and basilar arteries are intact with no significant stenosis or plaque. RIGHT verteb ral artery is tortuous and crosses the midline to the LEFT. No stenosis. Posterior cerebral arteries are normal course and caliber. Posterior communicating arteries are both patent. Intracranial portion of the internal carotid arteries are normal course and caliber. No significant a therosclerosis, stenosis or aneurysm identified. Middle and anterior cerebral arteries are both paten t with no significant disease. Anterior communicating artery is also normal. MR/MR angio head wo con [id number] IMPRESSION: Unremarkable MR angiographic [place]. No occlusions or aneurysm. Beni kaur to the prior study of 05/07/2019
== END 2020-06-24 15:45 | disposition home or self-care (01) ==
PROVIDERS: PCP Family Medicine; Visit Provider Family Medicine
DX: R47.81 Slurred speech (principal); I67.82 Cerebral ischemia; G31.9 Degenerative disease of nervous system, unspecified
CPT/HCPCS: 70544; 70551

== ENCOUNTER → 2020-06-29 08:29 | Outpatient (BNVA) | payer MEDICARE, OTHER, SELFPAY | PROVIDERS: PCP Family Medicine; Referring Provider Orthopaedic Surgery; Visit Provider Anesthesiology Pain Medicine | DX: M47.812 Spondylosis without myelopathy or radiculopathy, cervical region (principal); M54.12 Radiculopathy, cervical region; M54.81 Occipital neuralgia; Z98.890 Other specified postprocedural states; Z79.899 Other long term (current) drug therapy | CPT/HCPCS: 99205 ==

== ENCOUNTER 2020-06-30 06:00 | Outpatient (RCR) | payer MEDICARE, SELFPAY | END 2020-07-30 23:59 | disposition home or self-care (01) | LOC: SPT 06:00 | PROVIDERS: PCP Family Medicine; Referring Provider Orthopaedic Surgery; Visit Provider Orthopaedic Surgery | DX: M54.89 Other dorsalgia (principal) | CPT/HCPCS: 97110 ==

== ENCOUNTER → 2020-07-06 12:56 | Outpatient (BNVA) | payer MEDICARE, OTHER, SELFPAY | PROVIDERS: PCP Family Medicine; Visit Provider Anesthesiology Pain Medicine | DX: M47.812 Spondylosis without myelopathy or radiculopathy, cervical region (principal); M54.81 Occipital neuralgia; Z79.891 Long term (current) use of opiate analgesic | CPT/HCPCS: 64490; 64491; 64492; J1030; J3490 ==

== ENCOUNTER → 2020-07-21 09:33 | Outpatient (BNVA) | payer MEDICARE, OTHER, SELFPAY | PROVIDERS: PCP Family Medicine; Visit Provider Anesthesiology Pain Medicine | DX: G89.29 Other chronic pain (principal); M17.12 Unilateral primary osteoarthritis, left knee; M54.81 Occipital neuralgia; M47.812 Spondylosis without myelopathy or radiculopathy, cervical region; M54.12 Radiculopathy, cervical region; Z98.890 Other specified postprocedural states; Z79.891 Long term (current) use of opiate analgesic | CPT/HCPCS: 20610; 99214; J1030; J3490 ==

== ENCOUNTER → 2020-08-20 09:56 | Outpatient (BNVA) | payer MEDICARE, OTHER, SELFPAY | PROVIDERS: PCP Family Medicine; Visit Provider Specialist | DX: G31.83 Neurocognitive disorder with Lewy bodies (principal); F02.80 Dementia in other diseases classified elsewhere, unspecified severity, without behavioral disturbance, psychotic disturbance, mood disturbance, and anxiety; Z87.891 Personal history of nicotine dependence | CPT/HCPCS: 99205; 99215 ==

== ENCOUNTER → 2020-08-27 09:22 | Outpatient (BNVA) | payer MEDICARE, OTHER, SELFPAY | PROVIDERS: PCP Family Medicine; Visit Provider Specialist | DX: Z47.89 Encounter for other orthopedic aftercare (principal); S72.002D Fracture of unspecified part of neck of left femur, subsequent encounter for closed fracture with routine healing; X58.XXXD Exposure to other specified factors, subsequent encounter; M25.561 Pain in right knee | CPT/HCPCS: 73502; 73560; 73565 ==

== ENCOUNTER 2020-09-04 07:51 | Outpatient (CLI) | payer MEDICARE, OTHER, SELFPAY ==
--- NOTE | 2020-09-04 08:00 | NM_ITS ---
WS: [id number] THREE-PHASE BONE SCAN HISTORY: M25.569 - Pain in unspecified knee, LEFT knee pain and fractured femur. COMPARISON: LEFT knee 08/27/2020 Patient is is injected with 24.5 mCi Tc99m HDP intravenously. Immediate angiographic phase imaging is performed over the area of concern. Static blood pool imaging also performed. Two-hour whole-body sc intigrams performed in anterior and posterior projections. Additional large field of view imaging sub mitted as necessary. Angiographic and static blood pool imaging over the knees is normal. No increased uptake. No photopen ic defect. On the two-hour delayed film there is also normal uptake at the knee joints bilaterally. T here is no evidence for osteomyelitis or fracture. Focal area of increased uptake in the posterior RIGHT 11th rib. Additional area of focal increased up take in the LEFT lateral probable fifth rib. These probably represent healing fractures. Mild osteoar thritic changes at the lateral carpus bilaterally. NM/NM bone 3 phase [id number] IMPRESSION: 1. No evidence for osteomyelitis or abnormal uptake involving the knees. 2. Focal areas of increased uptake involving the RIGHT posterior 11th and LEFT lateral fifth ribs. Probably due to prior fractures. No history of malignancy.
== END 2020-09-04 07:52 | disposition home or self-care (01) ==
PROVIDERS: PCP Family Medicine; Visit Provider Specialist
DX: M25.569 Pain in unspecified knee (principal); Z97.8 Presence of other specified devices
CPT/HCPCS: 78315; A9561

== ENCOUNTER 2020-09-24 07:40 | Outpatient (CLI) | payer MEDICARE, OTHER, SELFPAY ==
--- NOTE | 2020-09-24 07:44 | MR_ITS ---
WS: [id number] MRI LEFT KNEE NONCONTRAST AND CONTRAST TECHNIQUE: Axial PD, coronal PD fat sat, coronal PD, sagittal PD, and sagittal PD fat-sat images obta ined. Post gadolinium imaging obtained CLINICAL INFORMATION: M17.12 - Unilateral primary osteoarthritis, left knee COMPARISON: [id number] FINDINGS: Distal quadriceps and patella tendons are intact. Mild chronic thinning of the ACL similar in appeara nce to previous. ACL and PCL are intact. Chronic thinning of the medial and lateral meniscus. Chronic appearing intrasubstance signal abnormality involving the posterior horn medial meniscus similar to previous. No acute appearing meniscal tears. Blunting of the posterior horn lateral meniscus unchange d in appearance compared to previous. Moderate narrowing of the medial and lateral joint compartments with chondromalacia. No significant s ubchondral edema. Moderate chondromalacia patella with joint space narrowing. No subchondral edema. H ypertrophic patella. Normal popliteal fossa. Normal medial and lateral collateral ligaments. No abnor mal gadolinium enhancement. Susceptibility artifact in the distal femur from proximal femoral hardwar e is not included on this examination. MR/MR knee LT wo/w con [id number] IMPRESSION: 1. Mild chronic thinning of the ACL. ACL and PCL are intact. 2. Chronic intrasubstance signal abnormality involving the posterior horn medi al meniscus. No acute appearing meniscal tears. 3. Moderate narrowing of the medial and lateral joint compartments with chondr omalacia similar to previous. No subchondral edema. 4. Moderate chondromalacia patella. 5. No abnormal gadolinium enhancement. 6. No significant changes from previous.
== END 2020-09-24 07:41 | disposition home or self-care (01) ==
LOC: RADSHAW 07:40
PROVIDERS: PCP Family Medicine; Visit Provider Specialist
DX: M17.12 Unilateral primary osteoarthritis, left knee (principal); M22.42 Chondromalacia patellae, left knee
CPT/HCPCS: 73723; A9579

== ENCOUNTER → 2020-10-07 09:37 | Outpatient (BNVA) | payer MEDICARE, OTHER, SELFPAY | PROVIDERS: PCP Family Medicine; Visit Provider Internal Medicine Rheumatology | DX: M81.0 Age-related osteoporosis without current pathological fracture (principal); M17.12 Unilateral primary osteoarthritis, left knee; M18.9 Osteoarthritis of first carpometacarpal joint, unspecified; Z87.891 Personal history of nicotine dependence | CPT/HCPCS: 99213 ==

== ENCOUNTER → 2020-10-26 09:55 | Outpatient (BNVA) | payer MEDICARE, OTHER, SELFPAY | PROVIDERS: PCP Family Medicine; Visit Provider Internal Medicine Cardiovascular Disease | DX: I95.1 Orthostatic hypotension (principal) | CPT/HCPCS: 80048 ==

== ENCOUNTER → 2020-10-27 09:17 | Outpatient (BNVA) | payer MEDICARE, OTHER, SELFPAY | PROVIDERS: PCP Family Medicine; Visit Provider Anesthesiology Pain Medicine | DX: M47.812 Spondylosis without myelopathy or radiculopathy, cervical region (principal); M54.12 Radiculopathy, cervical region; M17.12 Unilateral primary osteoarthritis, left knee; M54.81 Occipital neuralgia; Z98.890 Other specified postprocedural states | CPT/HCPCS: 99214 ==

== ENCOUNTER → 2020-11-10 10:15 | Outpatient (BNVA) | payer MEDICARE, OTHER, SELFPAY | PROVIDERS: PCP Family Medicine; Visit Provider Psychiatry & Neurology Neurology | DX: M17.12 Unilateral primary osteoarthritis, left knee (principal); M51.17 Intervertebral disc disorders with radiculopathy, lumbosacral region; Z87.891 Personal history of nicotine dependence | CPT/HCPCS: 95886; 95909 ==

== ENCOUNTER 2020-11-11 10:48 | Outpatient (CLI) | payer MEDICARE, OTHER, SELFPAY ==
[2020-11-11] MEDS: denosumab 60 mg SDV SUBCUT (11:20)
--- NOTE | 2020-11-11 12:42 | PC.NURSE ---
Addendum entered by Yaz Jernigan RN 11/11/20 12:47: 10-26-2020 on lab draw Addendum entered by Yaz Jernigan RN 11/11/20 12:46: Did have creatinine and calcium levels drawn 10-18-2020 Original Note: Patient came in today at Oncology infusion suite for the Prolia 60mg SQ b/p 143/78 pulse 78 resp 19 temp 97.6 O2 Sat 97% He tolerated it well with no issues.mm
== END 2020-11-11 10:49 ==
PROVIDERS: PCP Family Medicine; Visit Provider Internal Medicine Rheumatology
DX: M47.812 Spondylosis without myelopathy or radiculopathy, cervical region (principal); M54.81 Occipital neuralgia; Z79.891 Long term (current) use of opiate analgesic
CPT/HCPCS: 64490; 64491; 64492; 96372; J0897; J3490

== ENCOUNTER → 2020-11-26 14:03 | Outpatient (BNVA) | payer MEDICARE, OTHER, SELFPAY | PROVIDERS: PCP Family Medicine; Visit Provider Anesthesiology Pain Medicine | DX: M47.812 Spondylosis without myelopathy or radiculopathy, cervical region (principal); M54.81 Occipital neuralgia; M51.17 Intervertebral disc disorders with radiculopathy, lumbosacral region; M54.9 Dorsalgia, unspecified; M17.12 Unilateral primary osteoarthritis, left knee; Z98.890 Other specified postprocedural states; Z79.891 Long term (current) use of opiate analgesic | CPT/HCPCS: 99215 ==

== ENCOUNTER → 2020-12-04 12:42 | Outpatient (BNVA) | payer MEDICARE, OTHER, SELFPAY | PROVIDERS: PCP Family Medicine; Visit Provider Anesthesiology Pain Medicine | DX: M54.16 Radiculopathy, lumbar region (principal); M54.9 Dorsalgia, unspecified; Z79.899 Other long term (current) drug therapy; Z79.891 Long term (current) use of opiate analgesic | CPT/HCPCS: 64483; 64484; J1030; J3490 ==

== ENCOUNTER 2021-01-15 10:52 | Outpatient (CLI) | payer MEDICARE, OTHER, SELFPAY ==
--- NOTE | 2021-01-15 11:00 | MR_ITS ---
WS: [id number] MRI LUMBAR SPINE NONCONTRAST TECHNIQUE: Sagittal T1, T2 and STIR imaging. Axial T1 and T2 imaging. CLINICAL INFORMATION: M54.5 - Low back pain COMPARISON: MRI November 06, 2019 FINDINGS: Prior postoperative changes laminectomy defects L3-4. Right eccentric disc osteophyte complex L3-4 wi th moderate right foraminal narrowing is unchanged. Disc space narrowing worse at L4-L5 and L5-S1. No high-grade central canal stenosis. L1-L2: Normal. L2-L3: Mild disc osteophyte complex with endplate ridging. Slight impingement on the traversing left L3 nerve root. Mild central canal stenosis. Mild facet arthropathy with ligamentum flavum flavum hype rtrophy. Mild to moderate left foraminal narrowing. L3-L4: Prior laminectomy defects. Moderate right foraminal narrowing impinges the exiting right L3 ne rve root unchanged from previous due to disc osteophyte ridging. Mild narrowing of the right subartic ular recess. Spinal canal is patent. Left foramen is patent. Mild facet arthropathy. L4-L5: Mild disc desiccation. Slight effacement of the ventral thecal sac with impingement on the tra versing L5 nerve roots. Mild left greater than right bony foraminal narrowing. Moderate facet arthrop athy. L5-S1: Disc osteophyte complex with endplate ridging. Impingement on the left S1 nerve root. Moderate facet arthropathy ligament flavum hypertrophy. Foramen are patent. Visualized pelvic bony structures: Normal. Paravertebral soft tissues: Normal. MR/MR lumbar spine wo con* [id number] IMPRESSION: 1. Prior laminectomy defects L3-4 with right eccentric disc osteophyte complex results in moderate right foraminal narrowing. This is unchanged. Recommend co rrelation for right L3 nerve root symptoms. 2. Narrowing of the right L3-4 subarticular recess unchanged. 3. Mild central canal stenosis L2-3 and L4-5 with impingement on the subarticu lar recess worse at left L2-3 and left L4-5. Central canal stenosis L2-3 is sli ghtly progressed compared to previous. 4. Left foraminal protrusion L2-3 impinges the exiting left L2 nerve root with mild to moderate left foraminal narrowing. This is slightly progressed compare d to previous.Correlation for left L2 nerve root symptoms. 5. Mild left L4-5 bony foraminal narrowing. 6. Disc bulging L5-S1 slightly impinges the left S1 nerve root.
== END 2021-01-15 10:53 | disposition home or self-care (01) ==
LOC: RADSHAW 10:57
PROVIDERS: PCP Family Medicine; Visit Provider Specialist
DX: M96.1 Postlaminectomy syndrome, not elsewhere classified (principal); M48.061 Spinal stenosis, lumbar region without neurogenic claudication; M51.27 Other intervertebral disc displacement, lumbosacral region
CPT/HCPCS: 72148

== ENCOUNTER → 2021-01-19 11:26 | Outpatient (BNVA) | payer MEDICARE, OTHER, SELFPAY | PROVIDERS: PCP Family Medicine; Visit Provider Anesthesiology Pain Medicine | DX: M51.17 Intervertebral disc disorders with radiculopathy, lumbosacral region (principal); M48.062 Spinal stenosis, lumbar region with neurogenic claudication; M54.9 Dorsalgia, unspecified; M54.81 Occipital neuralgia; M47.812 Spondylosis without myelopathy or radiculopathy, cervical region; M17.12 Unilateral primary osteoarthritis, left knee; Z98.890 Other specified postprocedural states | CPT/HCPCS: 99215 ==

== ENCOUNTER → 2021-02-03 09:45 | Outpatient (BNVA) | payer MEDICARE, OTHER, SELFPAY | PROVIDERS: PCP Family Medicine; Visit Provider Internal Medicine Cardiovascular Disease | DX: Z01.818 Encounter for other preprocedural examination (principal); Z20.822 Contact with and (suspected) exposure to COVID-19 | CPT/HCPCS: 80048; 85025; 85610; 86850; 86900; 87635 ==

== ENCOUNTER 2021-02-08 06:53 | Day surgery (SDC) | payer MEDICARE, OTHER, SELFPAY ==
[2021-02-08 07:38] VITALS: BP 163/81; PULSE 65; RESP 18; TEMP 36.6; O2SAT 97; BMI 25.3
--- NOTE | 2021-02-08 08:01 | W.PM.OPSUD ---
Surgery/Procedure H&P Update DATE OF PROCEDURE: February 08, 2021 DATE H&P PERFORMED: 01/14/21 H&P UPDATE INFORMATION: I have reviewed H&P completed within last 30 days, I have examined patient prior to procedure, No changes to prior documentation and Changes to prior documentation as noted here PREOP DIAGNOSIS: ICM end-of-life PLANNED PROCEDURE: Operation Date: 02/08/21 08:30 Proposed Procedures p Loop Recorder Removal [id number] z01.818(Not Applicable) - No Dominguez MD PATIENT REASSESSED PRIOR TO SEDATION, WITH NO CHANGE NOTED: Yes PHYSICAL EXAM: alert, clear to auscultation bilaterally and regular rate & rhythm AIRWAY EVAL/ANESTHESIA PLAN: normal airway, see other exam findings, ASA II, Monitored Anesthesia, Local Anesthesia, Risks, benefits & alternatives of sedation and/or procedure discussed and Patient agrees to continue as planned
--- NOTE | 2021-02-08 08:48 | PM.OP ---
Operative Report Date of procedure: February 08, 2021 Pre-op Diagnosis: ICM end-of-life Brief History: This is a 75-year-old white male with a history of syncopal episode and orthostatic hypotension, had a tilt table test in 2018 which was negative. Subsequently he had a implantable certified low vision therapist. The implantable certified low vision therapist reached end-of-life. For this reason, an ICD explantation was recommended by Dr. Tejeda. Procedure: LOCATION: Cardiac Catheterization Laboratory REFERRING PROVIDER: PREOPERATIVE DIAGNOSIS: Chest syncope POSTOPERATIVE DIAGNOSIS: same ESTIMATED BLOOD LOSS: None COMPLICATIONS: None. BRIEF HISTORY: This is a 5-year-old white male with a history of recurrent syncope, had an ICM placement in [address] Pablo at the [facility] in [facility]. The Device has reached end-of-life. So it was recommended by Dr. Tejeda to explant the device PROCEDURE: The procedure was explained to the patient in detail with the risks and benefits. The risk of bleeding, hematoma, infection and other concomitant complications were explained. The patient understood this well and consented to proceed. The patient was brought to the CPRU. The left side of the neck and the precordial region were cleaned and draped in a sterile fashion. 1% Xylocaine was used as local anesthetic agent. A 1/4 inch long incision was made at the previous implantation scar. By sharp and blunt dissection, the certified low vision therapist pocket was accessed. The device was delivered from the pocket. Complete hemostasis was achieved. The skin was approximated with Steri-Strips EXPLANTED DEVICE: Reveal LINQ Model number: [id number] Serial number: [id number] Make: Availigenttronic Pressure dressing was applied over the insertion site. The patient was transferred to the medical floor in stable condition.
[2021-02-08 08:55] VITALS: BP 175/81; PULSE 60; RESP 18; TEMP 36.7; O2SAT 97
[2021-02-08 08:59] VITALS: BP 175/81; PULSE 60; RESP 18; TEMP 36.7; O2SAT 97
== END 2021-02-08 08:30 | disposition home or self-care (01) ==
PROVIDERS: PCP Family Medicine; Visit Provider Internal Medicine Cardiovascular Disease
PROC: (CPT 33286; principal; 2021-02-08 08:30)
DX: Z45.09 Encounter for adjustment and management of other cardiac device (principal); Z87.891 Personal history of nicotine dependence; Z82.49 Family history of ischemic heart disease and other diseases of the circulatory system; Z83.3 Family history of diabetes mellitus; I95.1 Orthostatic hypotension; G31.83 Neurocognitive disorder with Lewy bodies; F02.80 Dementia in other diseases classified elsewhere, unspecified severity, without behavioral disturbance, psychotic disturbance, mood disturbance, and anxiety; I45.10 Unspecified right bundle-branch block; I10 Essential (primary) hypertension; K21.9 Gastro-esophageal reflux disease without esophagitis; Z79.82 Long term (current) use of aspirin
CPT/HCPCS: 33286

== ENCOUNTER → 2021-02-24 11:14 | Day surgery (SDC) | payer MEDICARE, OTHER, SELFPAY | PROVIDERS: PCP Family Medicine; Visit Provider Orthopaedic Surgery | DX: Z01.818 Encounter for other preprocedural examination (principal) | CPT/HCPCS: 93005 ==

== ENCOUNTER → 2021-02-24 11:49 | Outpatient (BNVA) | payer MEDICARE, OTHER, SELFPAY | PROVIDERS: PCP Family Medicine; Visit Provider Orthopaedic Surgery | DX: Z01.818 Encounter for other preprocedural examination (principal); Z20.822 Contact with and (suspected) exposure to COVID-19 | CPT/HCPCS: 87635 ==

== ENCOUNTER → 2021-03-03 07:03 | Day surgery (SDC) | payer MEDICARE, OTHER, SELFPAY ==
[2021-02-24 09:57] VITALS: BMI 25.2
--- NOTE | 2021-02-24 11:14 | ECG_ITS ---
[facility] Test Date: 2021-02-24 Pat Name: Tom Sims Department: Room: Gender: Male Composite Laminator: : 1945 Requested By: Mathew Dallas Order Number: [id number] Maurice MD: No Dominguez M.D. Measurements Intervals [place] Rate: 60 P: 19 ME: 208 QRS: -23 QRSD: 145 T: 0 QT: 475 QTc: 478 Interpretive Statements SINUS RHYTHM INTRAVENTRICULAR CONDUCTION DELAY [130+ ms QRS DURATION] POSSIBLE LATERAL MYOCARDIAL INFARCTION [30 ms Q WAVE IN I/aVL/V5/V6], PROBABLY OLD Compared to ECG 03/30/2018 16:09:26 Intraventricular conduction delay now present Myocardial infarct finding now present Right bundle-branch block no longer present Electronically Signed On 02-25-2021 14:44:46 CDT by No Dominguez M.D. [id number] [email or web address]
--- NOTE | 2021-02-24 13:50 | ANES.PREANE2 ---
Pre-Anesthetic Assessment Pre-Anesthetic Assessment: Height/Weight: Height 1.83 m Weight 84.368 kg Preop Diagnosis: ICM end-of-life Proposed Procedure: Operation Date: 03/03/21 12:40 Proposed Procedures p MIS decompression L4-5 left-sided 10692 m48.062(Left) - Vineet H Vernell, DO Was Beta Elsy taken within 24 hours: N/A Was Clonidine taken within 24 hours: N/A Social: Social History: No alcohol and No tobacco Exam: Pre-Anes Outpt Exam: alert, oriented x 3, clear to auscultation bilaterally and regular rate & rhythm Airway: Submandibular: WNL Cervical ROM: WNL MP: 2 Dentition: False (upper) Additional comments: Some neck pain, but good ROM GI: GI: GERD Musc/skel: Musc/skel: Lower Back Pain, OA/DJD and Weakness Comments: Chest pain from shingles Neuropsych: Comments: WICHITA Anesthetic Plan: ASA status: 3 Anesthesia: General Risk of > 500 ml blood loss (7ml/kg in children): No PFSH Anesthesia PFSH: Medical History Basal cell carcinoma BPH (benign prostatic hyperplasia) Cervical disc disorder with myelopathy of mid-cervical region GERD (gastroesophageal reflux disease) GERD (gastroesophageal reflux disease) H/O fracture of pelvis History of colon polyps History of malignant melanoma History of torn meniscus of left knee (2019) Surgery Dr. Daigle History of torn meniscus of right knee Hyperlipidemia Intervertebral disc disorder with radiculopathy of lumbosacral region Lumbar disc disease Osteoporosis Osteoporosis RBBB Surgical History H/O esophagogastroduodenoscopy 09/24/2019: Gastritis and hiatal hernia History of carpal tunnel release History of colonoscopy (~2006) 09/24/2019: Sigmoid diverticulosis, 2 cm sessile polyp at the ileocecal valve History of inguinal hernia repair Right History of open reduction and internal fixation (ORIF) procedure left hip 2018 History of spinal surgery 01/2011 [facility] L3-L4 lumbar decompression Family History Mother Diabetes Myocardial infarction Father Myocardial infarction Other CAD (coronary artery disease) Denies family history of Rheumatoid arthritis Lupus Anesthesia complication Bleeding disorder Cancer Social History Quit status (tobacco): has quit using tobacco Year quit tobacco: 1970 Alcohol intake: never Household members: spouse Marital status: Current occupational status: retired History of recent travel: No Data Anesthesia Cardiac Studies: No Data to Display
--- NOTE | 2021-03-03 | SCC_ITS ---
Procedure Done: 1. Right L4/5 laminectomy with partial facetectomy 2. Removal of deep hardware from left distal femur 19.2 seconds of fluoroscopic guidance, for a cumulative dose of 2.48 mGy, was provided to Dr. Matt by the radiology department. C-arm images of the lumbar spine were saved for the patient's permanent record. [facility]
--- NOTE | 2021-03-03 | XR_ITS ---
WS: [id number] Lumbar spine, C-arm fluoroscopy view, 03/03/2021 Clinical Data: decompression L4/L5 Comparison: None. Findings: Dr. Matt performed the L4-L5 decompression. XR/XR lumbar spine 1V [id number] Impression: L4-L5 decompression.
[2021-03-03 07:31] VITALS: BP 174/91; PULSE 75; RESP 18; TEMP 36.5; O2SAT 96
[2021-03-03] MEDS: sodium chloride 0.9% 1,000 ML 30 ML IV (08:00)
--- NOTE | 2021-03-03 08:16 | P.ANESUD_ITS ---
Pre-Anesthetic Update Pre-Anesthetic Assessment: Date of Surgery/Procedure: 03/03/21 Preop Huma gnosis: lumbar stenosis Proposed Procedure: Operation Date: 03/03/21 08:20 Proposed Procedures p MIS decompression L4-5 left-sided 76041 m48.062(Left) - Vineet Matt, DO Any changes to Pre-Anesthetic Assessment?: No Last Intake: Intake Last Liquid Date 03/02/21 Last Liquid Time 22:00 Last Solid Date 03/02/21 Last Solid Time 18:00 Vitals: Temperature 97.7 F 03/03/21 07:31 Temperature Source Temporal Artery S can 03/03/21 07:31 Pulse Rate 75 03/03/21 07:31 Pulse Rhythm 03/03/21 07:31 Pulse Strength 3+ Normal 03/03/21 07:31 Respiratory Rate 18 03/03/21 07:31 Blood Pressure 174/91 03/03/21 07:31 Blood Pressure Anny n 118 03/03/21 07:31 Pulse Oximetry 96 03/03/21 07:31 Oxygen Delivery Me thod 03/03/21 07:31 Exam: Pre-Anes Outpt Exam: alert, oriented x 3, clear to auscultation bilaterally and regular rate & rhythm Cardiac Studies: No Data to Display
--- NOTE | 2021-03-03 08:20 | W.PM.OPSUD ---
Surgery/Procedure H&P Update DATE OF PROCEDURE: March 03, 2021 DATE H&P PERFORMED: 02/09/21 H&P UPDATE INFORMATION: I have reviewed H&P completed within last 30 days, I have examined patient prior to procedure and No changes to prior documentation PREOP DIAGNOSIS: lumbar stenosis PLANNED PROCEDURE: Operation Date: 03/03/21 08:20 Proposed Procedures p MIS decompression L4-5 left-sided 66710 m48.062(Left) - Vineet Matt DO
[2021-03-03 10:22] VITALS: BP 168/80; PULSE 103; RESP 16; TEMP 36.2; O2SAT 99
--- NOTE | 2021-03-03 10:24 | PM.OP ---
Operative Report Date of procedure: March 03, 2021 Pre-op Diagnosis: lumbar stenosis Post-op diagnosis: same Procedure Done: 1. Right L4/5 laminectomy with partial facetectomy 2. Removal of deep hardware from left distal femur Surgeon: Vineet Matt Anesthesia: General Estimated blood loss (mL): 5 Condition: stable Disposition: PACU Procedure: 1. Right L4/5 laminectomy with partial facetectomy 2. Removal of deep hardware from left distal femur Patient is brought to the operative suite. After undergoing anesthesia they are placed in the supine position. All areas of impingement are well padded. Patient is then prepped and draped in the normal sterile fashion. A skin incision is made over the L4/5 level. This is confirmed under c-arm guidance. A series of dilators are passed and the tubular retractor is docked on the L4 lamina. A bovie is used to clear the soft tissue off the lamina and the L 4/5 facet joint. A high speed kathrine is then used to perform the laminectomy and take down the medial aspect of the L 4/5 facet joint. A kerrison rongeure was then used to take down the remaining lamina and smooth the edge of the laminectomy up to the point where the ligamentum flavum attaches. Attention was then brought to the medial aspect of the facet joint. The remaining medial aspect of the superior and inferior aspect of the facet joint were taken down with the kerrison from the pedicle of L4 to L 5. The facet joint had significant hypertrophy. Attention was then brought to the Ligamentum Flavum. The ligament was taken down from the lamina of L4 to L5 and out medially to the remaining facet joint. The ligament was thick. The dura was then exposed. The dura was in good repair. The L4 nerve was then traced with a curette out the L4/5 foramen and found to be adequately decompressed. The L5 nerve was traced with a curette around the L5 pedicle. The lateral recess was opened with a kerrison helping to further decompress the L5 nerve. Wound is then irrigated copiously with saline and surgiflo is used to stop any bleeding. The tubular retractor is removed and the wound is closed with vicryl and monocryl suture. Glue is then used to protect the wound. A sterile dressing is then placed. Patient was then placed in the supine position and transferred to the PACU in stable condition.
[2021-03-03 10:25] VITALS: BP 159/79; PULSE 96; RESP 13; O2SAT 99
[2021-03-03 10:30] VITALS: BP 156/69; PULSE 98; RESP 17; TEMP 36.6; O2SAT 96
[2021-03-03 10:41] VITALS: BP 154/88; PULSE 94; RESP 16; TEMP 35.9; O2SAT 98
--- NOTE | 2021-03-03 16:22 | ANE.PACU2 ---
Inpatient post-anesthesia follow up: Airway intact: Yes Vital signs: Temperature 96.7 F Pulse Rate 94 Respiratory Rate 16 Blood Pressure 154/88 Pulse Oximetry 98 Oxygen Delivery Me thod Room Air Oxygen Flow Rate 8 Fraction of Inspir ed Oxygen Hydration adequate: Yes Nausea and vomiting: No Pain level: 1 Mental status: Baseline
== END | disposition home or self-care (01) ==
PROVIDERS: PCP Family Medicine; Visit Provider Orthopaedic Surgery
PROC: (CPT 63005; principal; 2021-03-03 08:20)
PROC: (CPT 20680; 2021-03-03 08:20)
DX: M48.062 Spinal stenosis, lumbar region with neurogenic claudication (principal); T84.84XA Pain due to internal orthopedic prosthetic devices, implants and grafts, initial encounter; K21.9 Gastro-esophageal reflux disease without esophagitis; N40.0 Benign prostatic hyperplasia without lower urinary tract symptoms; E78.5 Hyperlipidemia, unspecified; M81.0 Age-related osteoporosis without current pathological fracture; M19.90 Unspecified osteoarthritis, unspecified site; Z83.3 Family history of diabetes mellitus; Z82.49 Family history of ischemic heart disease and other diseases of the circulatory system; Z87.891 Personal history of nicotine dependence; Z79.82 Long term (current) use of aspirin
CPT/HCPCS: 20680; 63047; 72020; 76000; J1100; J2405; J2704; J2710; J3010; J3490; J7030

== ENCOUNTER → 2021-03-17 10:16 | Outpatient (BNVA) | payer MEDICARE, OTHER, SELFPAY | PROVIDERS: PCP Family Medicine; Visit Provider Anesthesiology Pain Medicine | DX: M48.062 Spinal stenosis, lumbar region with neurogenic claudication (principal); M51.17 Intervertebral disc disorders with radiculopathy, lumbosacral region; M47.812 Spondylosis without myelopathy or radiculopathy, cervical region; M54.81 Occipital neuralgia; M17.12 Unilateral primary osteoarthritis, left knee; Z98.890 Other specified postprocedural states; Z87.828 Personal history of other (healed) physical injury and trauma; Z79.891 Long term (current) use of opiate analgesic | CPT/HCPCS: 99214 ==

== ENCOUNTER 2021-03-19 09:42 | Outpatient (CLI) | payer MEDICARE, OTHER, SELFPAY ==
--- NOTE | 2021-03-19 09:50 | XR_ITS ---
WS: [id number] Cervical spine, AP, odontoid, lateral views in flexion, extension and neutral position, 03/19/2021 Clinical Data: Z87.828 - Personal history of other (healed) physical inj... Comparison: Cervical spine, 04/16/2020. Findings: No compression fractures are seen. There is degenerative disc narrowing at C3-C4, C4-C5, C5 -C6 and C6-C7. There is anterior osteoarthritic change from C3 through C7. On flexion and extension t here is no limitation of motion or subluxation. There is no prevertebral soft tissue swelling. The od ontoid is unremarkable. The soft tissues of the neck and the lung apices are normal. XR/XR cervical spine 4-5V 87119 Impression: 1. Mild osteoarthritis from C3 through C7. 2. Degenerative disc narrowing from C3-C4 through C6-C7. 3. Negative for limitation of motion or subluxation on flexion or extension.
== END 2021-03-19 09:43 | disposition home or self-care (01) ==
PROVIDERS: PCP Family Medicine; Visit Provider Anesthesiology Pain Medicine
DX: Z87.828 Personal history of other (healed) physical injury and trauma (principal); M47.812 Spondylosis without myelopathy or radiculopathy, cervical region
CPT/HCPCS: 72050

== ENCOUNTER → 2021-03-30 14:20 | Outpatient (BNVA) | payer MEDICARE, OTHER, SELFPAY | PROVIDERS: PCP Family Medicine; Visit Provider Specialist | DX: G31.83 Neurocognitive disorder with Lewy bodies (principal); F02.80 Dementia in other diseases classified elsewhere, unspecified severity, without behavioral disturbance, psychotic disturbance, mood disturbance, and anxiety | CPT/HCPCS: 99214 ==

== ENCOUNTER → 2021-03-31 10:48 | Outpatient (BNVA) | payer MEDICARE, OTHER, SELFPAY | PROVIDERS: PCP Family Medicine; Visit Provider Anesthesiology Pain Medicine | DX: M48.062 Spinal stenosis, lumbar region with neurogenic claudication (principal); M54.81 Occipital neuralgia; M47.812 Spondylosis without myelopathy or radiculopathy, cervical region; M17.12 Unilateral primary osteoarthritis, left knee; M51.17 Intervertebral disc disorders with radiculopathy, lumbosacral region; Z98.890 Other specified postprocedural states; Z87.828 Personal history of other (healed) physical injury and trauma; Z79.891 Long term (current) use of opiate analgesic | CPT/HCPCS: 99214 ==

== ENCOUNTER → 2021-04-06 09:53 | Outpatient (BNVA) | payer MEDICARE, OTHER, SELFPAY | PROVIDERS: PCP Family Medicine; Visit Provider Internal Medicine Rheumatology | DX: M81.0 Age-related osteoporosis without current pathological fracture (principal); M17.12 Unilateral primary osteoarthritis, left knee; Z87.310 Personal history of (healed) osteoporosis fracture; Z87.891 Personal history of nicotine dependence | CPT/HCPCS: 99214 ==

== ENCOUNTER 2021-05-10 12:34 | Outpatient (RCR) | payer MEDICARE, OTHER, SELFPAY | END 2021-05-30 23:59 | disposition home or self-care (01) | LOC: SPT 12:34 | PROVIDERS: PCP Family Medicine; Referring Provider Orthopaedic Surgery; Visit Provider Orthopaedic Surgery | DX: Z47.89 Encounter for other orthopedic aftercare (principal) | CPT/HCPCS: 97110; 97162 ==

== ENCOUNTER 2021-05-17 10:56 | Outpatient (CLI) | payer MEDICARE, OTHER, SELFPAY ==
[2021-05-17 12:40] LABS: Albumin Level 4.5 g/dL (3.5-5.2); Calcium 9.5 mg/dL (8.5-10.5)
[2021-05-17 12:54] LABS: 25 Hydroxy Vitamin D 49 ng/mL (30-100)
[2021-05-17 13:28] VITALS: BP 125/73; PULSE 79; RESP 18; TEMP 36.1; O2SAT 98
[2021-05-17] MEDS: denosumab 60 mg SDV SUBCUT (13:34)
[2021-05-17 13:40] VITALS: BP 147/73; PULSE 85; RESP 18; TEMP 36.1; O2SAT 99
== END 2021-05-17 10:57 | disposition home or self-care (01) ==
PROVIDERS: PCP Family Medicine; Referring Provider Internal Medicine Rheumatology; Visit Provider Internal Medicine Rheumatology
DX: M81.0 Age-related osteoporosis without current pathological fracture (principal)
CPT/HCPCS: 36415; 82040; 82306; 82310; 82565; 96372; J0897

== ENCOUNTER 2021-06-11 20:14 | Emergency (ER) | payer MEDICARE, OTHER, SELFPAY ==
[2021-06-11 20:33] VITALS: BP 206/49; PULSE 74; RESP 18; TEMP 36.7; O2SAT 96; BMI 24.8
--- NOTE | 2021-06-11 20:48 | XRR_ITS ---
PROCEDURE INFORMATION: Exam: XR Left Ribs with PA Chest Exam date and time: 06/11/2021 8:48 PM Age: 75 years old Clinical indication: Injury or trauma; Fall; Rib area, left side; Blunt trauma; Patient HX: Patient fell onto bathroom tub tonight. C/O left rib pain. ; Additional info: Fall/pain TECHNIQUE: Imaging protocol: XR Left ribs with PA chest. Views: 3 views COMPARISON: CR XR chest 2V* [id number] 04/08/2021 1:29 PM FINDINGS: Lungs: The visualized portions of the lungs are clear. Pleural spaces: No pneumothorax is identified. Heart/Mediastinum: Unremarkable. No cardiomegaly. Bones/joints: There is healing fracture of the anterolateral aspect of the left 6th rib. There is also old healed fracture of the posterior left 6th rib. No acute fracture is demonstrated. There is mild scoliosis of the thoracic spine concave to the left. XR/XR ribs LT mn 3V w CXR1V [id number] IMPRESSION: Healing left 6th rib fracture. No acute fracture is identified. Radiation Dose CTDIVOL = (mGy): DLP = (mGy-cm)
[2021-06-11 21:39] VITALS: BP 177/78; PULSE 65; RESP 18; O2SAT 97
[2021-06-11] MEDS: CELEcoxib 200 mg Capsule 400 MG PO (22:09)
[2021-06-11 22:10] VITALS: RESP 16; O2SAT 96
--- NOTE | 2021-06-12 01:14 | ED_ITS ---
HPI - General Adult General: Chief complaint: General Medical Stated complaint: Fall Injuried Ribs Time Seen by Provider: 06/11/21 21:58 History of Present Illness: HPI narrative: Patient fell today striking the left chest wall. He has tenderness left posterior area of his chest. Patient does have history of frequent falls. MD complaint: Rib pain. Onset (ago): hour(s) Radiation: non-radiation Severity scale (1-10): 3 Quality: aching Pain Consistency: intermittent Relieving factors: immobilization Exacerbating factors: movement Associated symptoms: Reports no associated symptoms; Deny chest pain, dyspnea, headache(s), nausea, rash or vomiting Review of Systems Const: Denies: fever(s), chills or body aches Eyes: Denies: change in vision or blurry vision ENMT: Denies: throat pain or nasal congestion Card: Denies: chest pain or dyspnea on exertion Resp: Denies: dyspnea, productive cough or non-productive cough GI: Denies: abdominal pain, nausea or vomiting : Denies: difficulty urinating Musc: Reports: other (Tenderness chest wall left side fifth or sixth rib area posteriorly); Denies: extremity pain Skin/Breast: Denies: rash Neuro: Denies: headache(s) Psych: Denies: anxiety or depression Kun/Lymph: Denies: easy bruising PFSH ED PFSH: Medical History Basal cell carcinoma BPH (benign prostatic hyperplasia) Cervical disc disorder with myelopathy of mid-cervical region GERD (gastroesophageal reflux disease) GERD (gastroesophageal reflux disease) H/O fracture of pelvis History of colon polyps History of malignant melanoma History of torn meniscus of left knee (2019) Surgery Dr. Daigle History of torn meniscus of right knee Hyperlipidemia Intervertebral disc disorder with radiculopathy of lumbosacral region Lumbar disc disease Osteoporosis Osteoporosis RBBB Surgical History H/O esophagogastroduodenoscopy 09/24/2019: Gastritis and hiatal hernia History of carpal tunnel release History of colonoscopy (~2006) 09/24/2019: Sigmoid diverticulosis, 2 cm sessile polyp at the ileocecal valve History of inguinal hernia repair Right History of open reduction and internal fixation (ORIF) procedure left hip 2018 History of spinal surgery 01/2011 [facility] L3-L4 lumbar decompression Family History Mother Diabetes Myocardial infarction Father Myocardial infarction Other CAD (coronary artery disease) Denies family history of Rheumatoid arthritis Lupus Anesthesia complication Bleeding disorder Cancer Social History Smoking and tobacco status: never smoked Quit status (tobacco): has quit using tobacco Year quit tobacco: 1970 Alcohol intake: never Household members: spouse Marital status: Current occupational status: retired History of recent travel: No Physical Exam Const: COMMON NORMALS: no acute distress GENERAL APPEARANCE: cooperative Resp: COMMON NORMALS: normal respiratory effort Back/Pelvis: OTHER: She has tenderness to the fifth 6 rib area posteriorly no swelling. Psych: COMMON NORMALS: mental status grossly normal Course Vital Signs: Vital signs: Vital Signs Temperature 98.1 F 06/11/21 20:33 Pulse Rate 65 06/11/21 21:39 Respiratory Rate 16 06/11/21 22:10 Blood Pressure 177/78 06/11/21 21:39 Pulse Oximetry 96 06/11/21 22:10 Discharge Plan Discharge Patient Disposition: Home Clinical Impression: Fracture of rib with routine healing Qualifiers: Rib fracture type: single rib Fracture type: closed Laterality: left Qualified Code(s): S22.32XD - Fracture of one rib, left side, subsequent encounter for fracture with routine healing Condition: Stable Prescriptions: New Celebrex 100 mg capsule 100 mg PO BID Qty: 20 RF: 0 No Action sodium chloride 1 gram tablet 1,000 mg PO TID Qty: 90 RF: 2 gabapentin 100 mg capsule 100 mg PO TID RF: 0 midodrine 10 mg tablet 10 mg PO DAILY RF: 0 clonazepam 0.5 mg tablet 0.75 mg PO BEDTIME RF: 0 multivitamin Capsule 1 cap PO DAILY RF: 0 dutasteride 0.5 mg capsule 0.5 mg PO DAILY RF: 0 aspirin [Adult Low Dose Aspirin] 81 mg tablet,delayed release (DR/EC) 81 mg PO DAILY RF: 0 simvastatin 20 mg tablet 20 mg PO BEDTIME RF: 0 pantoprazole 40 mg tablet,delayed release (DR/EC) 80 mg PO BID RF: 0 sucralfate 1 gram tablet 1 gm PO BID RF: 0 citalopram 20 mg tablet 20 mg PO DAILY RF: 0 hydrocodone-acetaminophen 5-325 mg tablet 1 tab PO BID PRN (Reason: pain) 7 Days Qty: 14 RF: 0 cholecalciferol (vitamin D3) 50 mcg (2,000 unit) capsule 50 mcg PO DAILY Qty: 30 RF: 5 galantamine 8 mg capsule,ext rel. pellets 24 hr 8 mg PO QAM Qty: 30 RF: 0 galantamine 16 mg capsule,ext rel. pellets 24 hr 16 mg PO QAM Qty: 30 RF: 0 galantamine 24 mg capsule,ext rel. pellets 24 hr 24 mg PO QAM Qty: 60 RF: 3 ropinirole 0.5 mg tablet See Rx Instructions .ROUTE .COMPLEX Qty: 90 RF: 3 fludrocortisone 0.1 mg tablet 0.05 mg PO BID Qty: 30 RF: 2 Discharge Orders: Discharge ED (Routine); Ordered 06/11/21 Ordered By: Dre Gonzalez Referrals: Mynor Tesfaye MD [Primary Care Provider] - Discharge Diet: Usual diet Discharge Activity: Increase activity as tolerated Patient Instructions: Rib Fracture (ED) Activity Restrictions/Additional Instructions: Follow-up with medical provider as directed. Take medications as prescribed. Return to the ER or your medical provider if condition worsens. Please read and understand discharge instructions. If any questions ask please. Coding Level of Care Code ED Culture Manager for Jane Fwd Exam Expanded Problem Focused
== END 2021-06-11 22:11 | disposition home or self-care (01) ==
PROVIDERS: Emergency Provider Nurse Practitioner Family; PCP Family Medicine
DX: S22.32XA Fracture of one rib, left side, initial encounter for closed fracture (principal); Z79.82 Long term (current) use of aspirin; E78.5 Hyperlipidemia, unspecified; Z87.891 Personal history of nicotine dependence; W19.XXXA Unspecified fall, initial encounter
CPT/HCPCS: 71101; 99283

== ENCOUNTER 2021-06-21 10:25 | Outpatient (CLI) | payer MEDICARE, OTHER, SELFPAY ==
--- NOTE | 2021-06-21 10:32 | XR_ITS ---
WS: [id number] LEFT RIBS, MULTIPLE VIEWS HISTORY: LEFT SIDED RIB PAIN COMPARISON: 06/11/2021 Ribs: Combination of acute and remote rib fractures. Seventh and eighth ribs anterolaterally are frac tured with a small amount callus formation. There are new fractures now identified within the fifth a nd sixth ribs. Lungs and mediastinum: No pneumothorax. Atelectasis at the LEFT lung base. Diffuse osteopenia. XR/XR ribs LT 2V* [id number] IMPRESSION: 1. Partially healed rib fractures in the seventh and eighth ribs. 2. There are additional new fractures within the fifth and sixth ribs.
== END 2021-06-21 10:26 | disposition home or self-care (01) ==
PROVIDERS: PCP Family Medicine; Visit Provider Family Medicine
DX: S22.42XA Multiple fractures of ribs, left side, initial encounter for closed fracture (principal); X58.XXXA Exposure to other specified factors, initial encounter
CPT/HCPCS: 71100

== ENCOUNTER 2021-07-08 08:10 | Outpatient (CLI) | payer MEDICARE, OTHER, SELFPAY ==
--- NOTE | 2021-07-08 08:16 | NM_ITS ---
WS: [id number] NUCLEAR MEDICINE WHOLE BODY BONE SCAN HISTORY: POST OP KNEE ARTHROSCOPY COMPARISON: 09/04/2020, 06/21/2021 TECHNIQUE: The patient was injected with 23.9 mCi of Technetium 99m HDP and serial whole-body scintig gaurang have been performed with anterior and posterior images. There are multiple new areas of rounded increased uptake within the LEFT RIBS both anterior and poste rior. Consistent with multiple acute to subacute rib fractures Multiple rib fractures were recently described radiographically. With no history of malignancy and wi th recent trauma these changes are most likely posttraumatic. There are fractures within the sixth th rough 10th ribs. Several of these ribs have increased uptake at several locations. There is an additi onal foci of increased uptake within the anterolateral RIGHT eighth rib. Mild thoracolumbar scoliosis . No significant abnormal uptake within the knees. ID/NM bone scan whole body* [id number] IMPRESSION: 1. New, numerous foci of increased uptake involving several of the LEFT ribs. With history of recent trauma and the disposition these are most likely related to acute to subacute rib fractures. These areas increased uptake were not pres ent on the prior bone scan of 09/04/2020. 2. Additional anterolateral RIGHT eighth rib increased uptake is probably a he aling fracture also.
== END 2021-07-08 08:11 | disposition home or self-care (01) ==
LOC: NM 08:11
PROVIDERS: PCP Family Medicine; Visit Provider Orthopaedic Surgery
DX: Z47.89 Encounter for other orthopedic aftercare (principal)
CPT/HCPCS: 78306; A9561

== ENCOUNTER → 2021-07-12 10:28 | Outpatient (BNVA) | payer MEDICARE, OTHER, SELFPAY | PROVIDERS: PCP Family Medicine; Visit Provider Specialist | DX: G20 Parkinson's disease (principal); F02.80 Dementia in other diseases classified elsewhere, unspecified severity, without behavioral disturbance, psychotic disturbance, mood disturbance, and anxiety; G90.3 Multi-system degeneration of the autonomic nervous system; R26.89 Other abnormalities of gait and mobility; G47.52 REM sleep behavior disorder | CPT/HCPCS: 96116; 99214 ==

== ENCOUNTER → 2021-08-12 10:40 | Outpatient (BNVA) | payer MEDICARE, OTHER, SELFPAY | PROVIDERS: PCP Family Medicine; Visit Provider Anesthesiology Pain Medicine | DX: M48.062 Spinal stenosis, lumbar region with neurogenic claudication (principal); M51.17 Intervertebral disc disorders with radiculopathy, lumbosacral region; M47.812 Spondylosis without myelopathy or radiculopathy, cervical region; M17.12 Unilateral primary osteoarthritis, left knee; M54.81 Occipital neuralgia; Z87.828 Personal history of other (healed) physical injury and trauma; Z98.890 Other specified postprocedural states | CPT/HCPCS: 99214 ==

== ENCOUNTER → 2021-08-18 13:50 | Outpatient (BNVA) | payer MEDICARE, OTHER, SELFPAY | PROVIDERS: PCP Family Medicine; Visit Provider Anesthesiology Pain Medicine | DX: M17.12 Unilateral primary osteoarthritis, left knee (principal); Z87.891 Personal history of nicotine dependence | CPT/HCPCS: 64454; 77002; J1030; J3490 ==

== ENCOUNTER → 2021-09-07 10:53 | Outpatient (BNVA) | payer MEDICARE, OTHER, SELFPAY | PROVIDERS: PCP Family Medicine; Visit Provider Anesthesiology Pain Medicine | DX: M17.12 Unilateral primary osteoarthritis, left knee (principal); M48.062 Spinal stenosis, lumbar region with neurogenic claudication; M51.17 Intervertebral disc disorders with radiculopathy, lumbosacral region; M47.812 Spondylosis without myelopathy or radiculopathy, cervical region; M54.81 Occipital neuralgia; Z87.828 Personal history of other (healed) physical injury and trauma; Z98.890 Other specified postprocedural states; Z87.891 Personal history of nicotine dependence | CPT/HCPCS: 99214 ==

== ENCOUNTER → 2021-09-30 12:43 | Outpatient (BNVA) | payer MEDICARE, OTHER, SELFPAY | PROVIDERS: PCP Family Medicine; Visit Provider Anesthesiology Pain Medicine | DX: M17.12 Unilateral primary osteoarthritis, left knee (principal); Z87.891 Personal history of nicotine dependence | CPT/HCPCS: 64999; 77002; J1030; J3490 ==

== ENCOUNTER 2021-10-14 11:10 | Observation (INO) | payer MEDICARE, OTHER, SELFPAY ==
[2021-10-14 11:16] VITALS: BP 111/66; PULSE 86; RESP 13; TEMP 37.1; O2SAT 92; BMI 25.4
--- NOTE | 2021-10-14 11:20 | CTR_ITS ---
PROCEDURE INFORMATION: Exam: CT Head Without Contrast Exam date and time: 10/14/2021 11:43 AM Age: 76 years old Clinical indication: Injury or trauma; Fall; Blunt trauma (contusions or hematomas); Dizziness; Additional info: Eval for trauma TECHNIQUE: Imaging protocol: Computed tomography of the head without contrast. Radiation optimization: All CT scans at this facility use at least one of these dose optimization techniques: automated exposure control; mA and/or kV adjustment per patient size (includes targeted exams where dose is matched to clinical indication); or iterative reconstruction. COMPARISON: MR head wo con* [id number] 06/24/2020 4:31 PM RADIATION DOSE METRICS: Total DLP (mGy-cm): 994.31 FINDINGS: Brain: There is no acute intracranial hemorrhage. There is lucency in the cerebral white matter, likely microvascular disease although non-specific. No evidence of mass. There is no mass effect or midline shift. Suarez white differentiation is intact. There are no extra-axial fluid collections. Cerebral ventricles: The ventricles and sulci are enlarged, consistent with volume loss / atrophy. No hydrocephalus. Paranasal sinuses: There is mild mucosal thickening in paranasal sinuses. Mastoid air cells: No significant mastoid effusion. Vasculature: There is vascular calcification. Bones/joints: No acute fracture. Soft tissues: Unremarkable as visualized. CT/CT head wo con* [id number] IMPRESSION: 1. No evidence of acute intracranial abnormality. No evidence of acute infarction, hemorrhage, or mass. 2. Atrophy and microvascular disease.
--- NOTE | 2021-10-14 11:20 | XRR_ITS ---
PROCEDURE INFORMATION: Exam: XR Left Humerus Exam date and time: 10/14/2021 12:08 PM Age: 76 years old Clinical indication: Injury or trauma; Fall; Blunt trauma (contusions or hematomas); Arm, upper; Left; Additional info: Eval trauma TECHNIQUE: Imaging protocol: XR Left humerus. Views: 2 or more views. COMPARISON: CR XR shoulder LT min 2V* [id number] 10/14/2021 12:05 PM FINDINGS: Bones/joints: There is no evidence of acute fracture. No dislocation. Soft tissues: Normal. XR/[place] [id number] IMPRESSION: No evidence of fracture or dislocation.
--- NOTE | 2021-10-14 11:20 | XRR_ITS ---
PROCEDURE INFORMATION: Exam: XR Left Forearm Exam date and time: 10/14/2021 12:16 PM Age: 76 years old Clinical indication: Injury or trauma; Fall; Blunt trauma (contusions or hematomas); Arm, lower; Left; Additional info: Eval trauma TECHNIQUE: Imaging protocol: XR Left forearm. Views: 2 views. COMPARISON: NM bone scan whole body* [id number] 07/08/2021 8:16 AM FINDINGS: Bones/joints: Bones are demineralized. There is no evidence of acute fracture. No dislocation. Soft tissues: Normal. XR/XR forearm LT 2V [id number] IMPRESSION: No evidence of fracture or dislocation.
--- NOTE | 2021-10-14 11:20 | XRR_ITS ---
PROCEDURE INFORMATION: Exam: XR Lumbosacral Spine Exam date and time: 10/14/2021 11:46 AM Age: 76 years old Clinical indication: Injury or trauma; Fall; Blunt trauma (contusions or hematomas) TECHNIQUE: Imaging protocol: XR of the lumbosacral spine. Views: 2 or 3 views. COMPARISON: OT XR lumbar spine 1V [id number] 03/03/2021 9:30 AM FINDINGS: Bones/joints: There is mild levocurvature of mid to lower lumbar spine. Vertebral body heights are maintained. There is no evidence of acute fracture. Pedicles appear intact. L5 is transitional and partially sacralized. There is vacuum disc at L3-L4. There is disc height loss at L4-L5 and L5-S1 greater than L3-L4. There are mild marginal osteophytes. There is likely mild retrolisthesis of L3 on L4. There is internal fixation of left proximal femur. Soft tissues: Unremarkable. Other findings: Bones are demineralized. XR/XR lumbar spine 2-3V* [id number] IMPRESSION: No evidence of acute fracture.
--- NOTE | 2021-10-14 11:20 | XRR_ITS ---
PROCEDURE INFORMATION: Exam: XR Left Elbow Exam date and time: 10/14/2021 12:11 PM Age: 76 years old Clinical indication: Injury or trauma; Fall; Blunt trauma (contusions or hematomas); Elbow; Left; Additional info: Eval trauma TECHNIQUE: Imaging protocol: XR Left elbow. Views: 1 or 2 views. COMPARISON: NM bone scan whole body* [id number] 07/08/2021 8:16 AM FINDINGS: Bones/joints: There is no evidence of acute fracture. No dislocation. Soft tissues: Normal. XR/XR elbow LT 2V [id number] IMPRESSION: No evidence of fracture or dislocation.
--- NOTE | 2021-10-14 11:20 | XRR_ITS ---
PROCEDURE INFORMATION: Exam: XR Left Shoulder Exam date and time: 10/14/2021 12:05 PM Age: 76 years old Clinical indication: Injury or trauma; Fall; Blunt trauma (contusions or hematomas); Shoulder; Left; Additional info: Eval trauma TECHNIQUE: Imaging protocol: XR Left shoulder. Views: 2 or more views. COMPARISON: NM bone scan whole body* [id number] 07/08/2021 8:16 AM FINDINGS: Bones/joints: Bones are demineralized. There is no evidence of acute fracture. No dislocation. Soft tissues: Normal. XR/XR shoulder LT min 2V* [id number] IMPRESSION: No evidence of fracture or dislocation.
--- NOTE | 2021-10-14 11:20 | XR_ITS ---
WS: [id number] XR hip LT 2-3V wo/w pel* [id number] REASON FOR EXAM: eval injury FINDINGS: Previous left femoral intramedullary prashant and large femoral neck nail fixation. No acute fracture. Left hip joint space intact mild to moderately narrowed. Adjacent pelvic bony structure are intact. No soft tissue abnormality. XR/XR hip LT 2-3V wo/w pel* [id number] IMPRESSION: No acute abnormality.
--- NOTE | 2021-10-14 11:21 | ECG_ITS ---
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 Measurements Intervals [place] Rate: 81 P: -24 [place]: 182 QRS: -44 QRSD: 138 T: -11 QT: 408 QTc: 474 Interpretive Statements SINUS RHYTHM WITH OCCASIONAL VENTRICULAR PREMATURE COMPLEXES LEFT AXIS DEVIATION [QRS AXIS < -30] RIGHT BUNDLE BRANCH BLOCK [120+ ms QRS DURATION, UPRIGHT V1, 40+ ms S IN I/aVL/V4/V5/V6] Compared to ECG 02/24/2021 10:57:15 Ventricular premature complex(es) now present Left-axis deviation now present Right bundle-branch block now present Intraventricular conduction delay no longer present Myocardial infarct finding no longer present Electronically Signed On 10-14-2021 21:47:52 CDT by No Dominguez M.D. [id number]
--- NOTE | 2021-10-14 11:23 | ED_ITS ---
HPI - General Adult General: Chief complaint: Fall Stated complaint: MULTIPLE FALLS Time Seen by Provider: 10/14/21 11:12 History of Present Illness: Patient is a 76-year-old male with a history of BPH, GERD, hyperlipidemia who presents the emergency room with both episodes of fall. Earlier today, patient's called the emergency room saying that her was on the ground and was unable to get him up. EMS was dispatched and the patient was found patient down this morning. Yesterday, patient had an episode of chest pain around 1 PM and had an episode of fall later that day while doing yard work. It is unclear whether patient passed out. Per EMS, patient is complaining of headache, left hip pain, left arm pain. Patient denies having any more chest pain today prior to the episode of fall. Patient denies any complaints including abdominal complaint, nausea/vomiting, diarrhea, melena/hematochezia, or complaints. Patient reports pain in the left arm, left hip, and back of the head. Patient denies any expression for press, focal neurological deficits including focal weakness, slurring speech, facial droop, or acute weakness. Onset:2 days ago Duration:2 days Location:home Severity:moderate/severe Associated symptoms: Deny chest pain, dyspnea, nausea, rash, palpitations or vomiting Review of Systems Const: Denies: fever(s) or chills Eyes: Denies: change in vision ENMT: Denies: mouth pain Card: Denies: chest pain or palpitations Resp: Denies: dyspnea or non-productive cough GI: Denies: abdominal pain, nausea, vomiting or diarrhea : Denies: dysuria Musc: Denies: extremity pain Skin/Breast: Denies: rash or new lesions Neuro: Denies: weakness in extremities Psych: Reports: other (Normal mood) Kun/Lymph: Denies: easy bruising PFSH ED PFSH: Medical History Basal cell carcinoma BPH (benign prostatic hyperplasia) Cervical disc disorder with myelopathy of mid-cervical region GERD (gastroesophageal reflux disease) GERD (gastroesophageal reflux disease) H/O fracture of pelvis History of colon polyps History of malignant melanoma History of torn meniscus of left knee (2019) Surgery Dr. Daigle History of torn meniscus of right knee Hyperlipidemia Intervertebral disc disorder with radiculopathy of lumbosacral region Lumbar disc disease Osteoporosis Osteoporosis RBBB Surgical History H/O esophagogastroduodenoscopy 09/24/2019: Gastritis and hiatal hernia History of carpal tunnel release History of colonoscopy (~2006) 09/24/2019: Sigmoid diverticulosis, 2 cm sessile polyp at the ileocecal valve History of inguinal hernia repair Right History of open reduction and internal fixation (ORIF) procedure left hip 2018 History of spinal surgery 01/2011 [facility] L3-L4 lumbar decompression Family History Mother Diabetes Myocardial infarction Father Myocardial infarction Other CAD (coronary artery disease) Denies family history of Rheumatoid arthritis Lupus Anesthesia complication Bleeding disorder Cancer Social History Smoking and tobacco status: former smoker Quit status (tobacco): has quit using tobacco Year quit tobacco: 1970 Alcohol intake: never Household members: spouse Marital status: Current occupational status: retired History of recent travel: No Physical Exam Const: COMMON NORMALS: alert HENMT: COMMON NORMALS: atraumatic HEAD & SCALP: atraumatic MOUTH: moist mucous membranes not abnormal Eye: COMMON NORMALS: EOMs intact bilaterally and conjunctivae normal CONJUNCTIVA: Yes conjunctivae normal Neck/C-Spine: COMMON NORMALS: full ROM and supple Resp: COMMON NORMALS: normal respiratory effort and clear to auscultation bilaterally AUSCULTATION: clear to auscultation bilaterally Cardio: COMMON NORMALS: regular rate RATE: regular rate GI: COMMON NORMALS: Soft to palpation and non-tender PALPATION: Yes Soft to palpation Back/Pelvis: OTHER: +mild paraspinal lumbar tenderness to palpation Extremity: COMMON NORMALS: full ROM Neuro: SENSORIUM/ORIENTATION: Yes alert MOTOR EXAM: No Abnormal motor strength present and Other motor observations present (no focal motor deficits) Psych: COMMON NORMALS: speech normal SPEECH: Yes normal speech MOOD & AFFECT: Yes euthymic mood Course Vital Signs: Vital signs: Vital Signs Temperature 98.0 F 10/14/21 21:19 Pulse Rate 67 10/14/21 21:19 Respiratory Rate 16 10/14/21 21:19 Blood Pressure 129/65 10/14/21 21:19 Pulse Oximetry 95 10/14/21 21:19 [facility] - General Adult Medical Decision Making Patient is a 76-year-old male with a history of GERD, BPH and hyperlipidemia who presents the emergency room for evaluation of multiple episodes of fall and acute weakness. No signs of active bruises. Patient has mild left shoulder, left elbow, left forearm and left humerus and left hip pain. Neuro exam is intact. Work-up: CBC, BMP, troponin x2, EKG x2, x-ray shoulder, x-ray elbow, x-ray forearm, x-ray humerus, x-ray hip, CT head Imaging studies negative for any acute finding. Given the fact the patient has had recurrent fall and family is interested in exploring options for rehabilitation versus physical therapy, decision was made in which conjunction with family to the patient for further evaluation. Disposition: admission Lab Data : 10/14/21 12:38 10/14/21 12:38 Radiology Impressions Elbow X-Ray 10/14/21 11:20 IMPRESSION: No evidence of fracture or dislocation. Forearm X-Ray 10/14/21 11:20 IMPRESSION: No evidence of fracture or dislocation. Head CT 10/14/21 11:20 IMPRESSION: 1. No evidence of acute intracranial abnormality. No evidence of acute infarction, hemorrhage, or mass. 2. Atrophy and microvascular disease. Hip/Pelvis X-Ray 10/14/21 11:20 IMPRESSION: No acute abnormality. Humerus X-Ray 10/14/21 11:20 IMPRESSION: No evidence of fracture or dislocation. Lumbar Spine X-Ray 10/14/21 11:20 IMPRESSION: No evidence of acute fracture. Shoulder X-Ray 10/14/21 11:20 IMPRESSION: No evidence of fracture or dislocation. Chest X-Ray 10/14/21 11:21 IMPRESSION: New opacity left lower lobe may be atelectasis/ Infiltrate. Laboratory Results WBC 13.1 10^3/uL (4.0-10.0) H 10/14/21 12:38 RBC 4.19 10^6/uL (4.1-5.3) 10/14/21 12:38 Hgb 12.4 g/dL (11.7-16.6) 10/14/21 12:38 Hct 38.0 % (42.0-52.0) L 10/14/21 12:38 MCV 90.7 fl (80-94) 10/14/21 12:38 MCH 29.6 pg (28.0-34.0) 10/14/21 12:38 MCHC 32.6 g/dL (30.0-36.0) 10/14/21 12:38 RDW 13.6 % (12.1-15.1) 10/14/21 12:38 Plt Count 177 10^3/cmm (130-400) 10/14/21 12:38 MPV 11.2 fL (7.4-10.4) H 10/14/21 12:38 Neut % (Auto) 83.6 % 10/14/21 12:38 Lymph % (Auto) 9.2 % 10/14/21 12:38 [place] % (Auto) 6.7 % 10/14/21 12:38 Eos % (Auto) 0.0 % 10/14/21 12:38 Baso % (Auto) 0.2 % 10/14/21 12:38 Neut # (Auto) 10.95 10^3/uL (1.8-7.7) H 10/14/21 12:38 Lymph # (Auto) 1.2 10^3/uL (0.8-4.8) 10/14/21 12:38 [place] # (Auto) 0.9 10^3/uL (0.2-0.9) 10/14/21 12:38 Eos # (Auto) 0.0 10^3/uL (0.0-0.8) 10/14/21 12:38 Baso # (Auto) 0.0 10^3/uL (0.0-0.1) 10/14/21 12:38 Nucleated RBC % (auto) 0 % 10/14/21 12:38 Nucleated RBCs # 0.0 /100WBC 10/14/21 12:38 Sodium 137 mmol/L (136-145) 10/14/21 12:38 Potassium 4.1 mmol/L (3.5-5.1) 10/14/21 12:38 Chloride 104 mmol/L (98-107) 10/14/21 12:38 Carbon Dioxide 21 mmol/L (22-29) L 10/14/21 12:38 Anion Gap 16.1 (5-19) 10/14/21 12:38 BUN 14 mg/dL (8-23) 10/14/21 12:38 Creatinine 0.9 mg/dL (0.7-1.2) 10/14/21 12:38 GFR Calculation Not Reportable 10/14/21 12:38 Glucose 129 mg/dL (65-115) H 10/14/21 12:38 Calculated Osmolality 286 mOsm/kg (285-295) 10/14/21 12:38 Calcium 9.4 mg/dL (8.5-10.5) 10/14/21 12:38 Troponin T Baseline 14 ng/L (0-15) 10/14/21 12:38 Vitamin B12 644 pg/mL (232-1245) 10/14/21 12:38 Imaging Data Other Imaging: Radiologist's impression: [facility] [address] XRay Report Signed Patient: Tom Sims Jr Unit #: [id number] : 1945 Age/Sex: 76 / M ADM Date: 10/14/21 Loc: ER Room/Bed: Attending Dr: Ordering Provider/Ordering MD: Genoveva Hill MD Date of Service: 10/14/21 Procedure(s): XR chest 1V portable [id number] Accession Number(s): [id number] Report Number: [id number] PROCEDURE INFORMATION: Exam: XR Chest Exam date and time: 10/14/2021 12:00 PM Age: 76 years old Clinical indication: Injury or trauma; Fall; Blunt trauma (contusions or hematomas) TECHNIQUE: Imaging protocol: XR of the chest. Views: 1 view. COMPARISON: CR (CHEST, ) 06/11/2021 9:00 PM FINDINGS: Lungs: There is a retrocardiac opacity is not visualized on prior study and therefore could be atelectasis or infiltrate. This could be further evaluated with both PA and lateral chest. Right lung is clear. Pleural spaces: Unremarkable. No pleural effusion. No pneumothorax. Heart/Mediastinum: No significant cardiomegaly. Bones/joints: No well-defined acute fracture on this single portable view of chest. There are old fractures of left 6th, 7th, and 8th ribs. There is mild dextrocurvature of spine. Mild spondylosis is noted. XR/XR chest 1V portable [id number] IMPRESSION: New opacity left lower lobe may be atelectasis/ Infiltrate. ? Dictated By: Amanda Mack MD Signed By: Amanda Mack MD Signed Date/Time: 10/14/21 1247 DD/ [address] [address] XRay Report Signed Patient: Tom Sims Jr Unit #: [id number] : 1945 Age/Sex: 76 / M ADM Date: 10/14/21 Loc: ER Room/Bed: Attending Dr: Ordering Provider/Ordering MD: Genoveva Hill MD Date of Service: 10/14/21 Procedure(s): XR shoulder LT min 2V* [id number] Accession Number(s): [id number] Report Number: [id number] PROCEDURE INFORMATION: Exam: XR Left Shoulder Exam date and time: 10/14/2021 12:05 PM Age: 76 years old Clinical indication: Injury or trauma; Fall; Blunt trauma (contusions or hematomas); Shoulder; Left; Additional info: Eval trauma TECHNIQUE: Imaging protocol: XR Left shoulder. Views: 2 or more views. COMPARISON: NM bone scan whole body* [id number] 07/08/2021 8:16 AM FINDINGS: Bones/joints: Bones are demineralized. There is no evidence of acute fracture. No dislocation. Soft tissues: Normal. XR/XR shoulder LT min 2V* [id number] IMPRESSION: No evidence of fracture or dislocation. ? Dictated By: Amanda Mack MD Signed By: Amanda Mack MD Signed Date/Time: 10/14/21 1254 DD/ [address] [address] XRay Report Signed Patient: Tom Sims Jr Unit #: [id number] : 1945 Age/Sex: 76 / M ADM Date: 10/14/21 Loc: ER Room/Bed: Attending Dr: Ordering Provider/Ordering MD: Genoveva Hill MD Date of Service: 10/14/21 Procedure(s): XR lumbar spine 2-3V* 90097 Accession Number(s): [id number] Report Number: [id number] PROCEDURE INFORMATION: Exam: XR Lumbosacral Spine Exam date and time: 10/14/2021 11:46 AM Age: 76 years old Clinical indication: Injury or trauma; Fall; Blunt trauma (contusions or hematomas) TECHNIQUE: Imaging protocol: XR of the lumbosacral spine. Views: 2 or 3 views. COMPARISON: OT XR lumbar spine 1V [id number] 03/03/2021 9:30 AM FINDINGS: Bones/joints: There is mild levocurvature of mid to lower lumbar spine. Vertebral body heights are maintained. There is no evidence of acute fracture. Pedicles appear intact. L5 is transitional and partially sacralized. There is vacuum disc at L3-L4. There is disc height loss at L4-L5 and L5-S1 greater than L3-L4. There are mild marginal osteophytes. There is likely mild retrolisthesis of L3 on L4. There is internal fixation of left proximal femur. Soft tissues: Unremarkable. Other findings: Bones are demineralized. XR/XR lumbar spine 2-3V* [id number] IMPRESSION: No evidence of acute fracture. ? Dictated By: Amanda Mack MD Signed By: Amanda Mack MD Signed Date/Time: 10/14/21 1250 DD/ [address] [address] XRay Report Signed Patient: Tom Sims Unit #: [id number] : 1945 Age/Sex: 76 / M ADM Date: 10/14/21 Loc: ER Room/Bed: Attending Dr: Ordering Provider/Ordering MD: Genoveva Hill MD Date of Service: 10/14/21 Procedure(s): [place] [address] Accession Number(s): [id number] Report Number: [id number] PROCEDURE INFORMATION: Exam: XR Left Humerus Exam date and time: 10/14/2021 12:08 PM Age: 76 years old Clinical indication: Injury or trauma; Fall; Blunt trauma (contusions or hematomas); Arm, upper; Left; Additional info: Eval trauma TECHNIQUE: Imaging protocol: XR Left humerus. Views: 2 or more views. COMPARISON: CR XR shoulder LT min 2V* [id number] 10/14/2021 12:05 PM FINDINGS: Bones/joints: There is no evidence of acute fracture. No dislocation. Soft tissues: Normal. XR/[place] [address] IMPRESSION: No evidence of fracture or dislocation. ? Dictated By: Amanda Mack MD Signed By: Amanda Mack MD Signed Date/Time: 10/14/21 1255 DD/ 1208 [place] [address] XRay Report Signed Patient: LeviTom Mast Jr Unit #: [id number] : 1945 Age/Sex: 76 / M ADM Date: 10/14/21 Loc: ER Room/Bed: Attending Dr: Ordering Provider/Ordering MD: Genoveva Hill MD Date of Service: 10/14/21 Procedure(s): XR hip LT 2-3V wo/w pel* 23495 Accession Number(s): [id number] Report Number: [id number] WS: [id number] XR hip LT 2-3V wo/w pel* 15528 REASON FOR EXAM: eval injury FINDINGS: Previous left femoral intramedullary prashant and large femoral neck nail fixation. No acute fracture. Left hip joint space intact mild to moderately narrowed. Adjacent pelvic bony structure are intact. No soft tissue abnormality. XR/XR hip LT 2-3V wo/w pel* 55755 IMPRESSION: No acute abnormality. ? ? Dictated By: Forrest Camilo Jr, MD Signed By: Forrest Camilo Jr, MD Signed Date/Time: 10/14/21 1226 DD/ [address] [place] [address] CT Scan Report Signed Patient: LeviTom Mast Jr Unit #: [id number] : 1945 Age/Sex: 76 / M ADM Date: 10/14/21 Loc: ER Room/Bed: Attending Dr: Ordering Provider/Ordering MD: Genoveva Hill MD Date of Service: 10/14/21 Procedure(s): CT head wo con* 41072 Accession Number(s): [id number] Report Number: [id number] PROCEDURE INFORMATION: Exam: CT Head Without Contrast Exam date and time: 10/14/2021 11:43 AM Age: 76 years old Clinical indication: Injury or trauma; Fall; Blunt trauma (contusions or hematomas); Dizziness; Additional info: Eval for trauma TECHNIQUE: Imaging protocol: Computed tomography of the head without contrast. Radiation optimization: All CT scans at this facility use at least one of these dose optimization techniques: automated exposure control; mA and/or kV adjustment per patient size (includes targeted exams where dose is matched to clinical indication); or iterative reconstruction. COMPARISON: MR head wo con* [id number] 06/24/2020 4:31 PM RADIATION DOSE METRICS: Total DLP (mGy-cm): 994.31 FINDINGS: Brain: There is no acute intracranial hemorrhage. There is lucency in the cerebral white matter, likely microvascular disease although non-specific. No evidence of mass. There is no mass effect or midline shift. Suarez white differentiation is intact. There are no extra-axial fluid collections. Cerebral ventricles: The ventricles and sulci are enlarged, consistent with volume loss / atrophy. No hydrocephalus. Paranasal sinuses: There is mild mucosal thickening in paranasal sinuses. Mastoid air cells:? No significant mastoid effusion. Vasculature: There is vascular calcification. Bones/joints:? No acute fracture. Soft tissues: Unremarkable as visualized. CT/CT head wo con* [id number] IMPRESSION: 1. No evidence of acute intracranial abnormality. No evidence of acute infarction, hemorrhage, or mass. 2. Atrophy and microvascular disease. ? Dictated By: Amanda Mack MD Signed By: Amanda Mack MD Signed Date/Time: 10/14/21 1224 DD/ 1143 Discharge Plan Discharge Patient Disposition: Admitted As Inpatient Admit Provider: Carolyne Castelan Clinical Impression: Recurrent falls, Chest pain Condition: Stable Coding Level of Care Code ED Parking Regulation Enforcement Officer for Chg Fwd Exam Comprehensive
[2021-10-14 12:46] LABS: Basophils % 0.2 %; Hemoglobin 12.4 g/dL (11.7-16.6); Lymphocytes # 1.2 10^3/uL (0.8-4.8); Lymphocytes % 9.2 %; Mean Corpuscular HGB Conc 32.6 g/dL (30.0-36.0); Mean Corpuscular Hemoglobin 29.6 pg (28.0-34.0); Mean Corpuscular Volume 90.7 fl (80-94); Mean Platelet Volume 11.2 fL (7.4-10.4); Monocytes # 0.9 10^3/uL (0.2-0.9); Monocytes % 6.7 %; Neutrophils # 10.95 10^3/uL (1.8-7.7); Neutrophils % 83.6 %; Nucleated Red Blood Cells % 0 %; Platelet Count 177 10^3/cmm (130-400); Red Blood Count 4.19 10^6/uL (4.1-5.3); Red Cell Distribution Width 13.6 % (12.1-15.1); White Blood Count 13.1 10^3/uL (4.0-10.0)
[2021-10-14 13:10] LABS: Troponin(5th) Baseline 14 ng/L (0-15)
[2021-10-14 13:11] LABS: Blood Urea Nitrogen 14 mg/dL (8-23); Calcium 9.4 mg/dL (8.5-10.5); Carbon Dioxide 21 mmol/L (22-29); Chloride 104 mmol/L (98-107); Creatinine Clr Calc Pharmacy 77.1843; Glucose 129 mg/dL (65-115); Osmolality Calculated 286 mOsm/kg (285-295); Sodium 137 mmol/L (136-145)
[2021-10-14 13:12] LABS: Anion Gap 16.1 (5-19); Potassium 4.1 mmol/L (3.5-5.1)
--- NOTE | 2021-10-14 13:21 | ECG_ITS ---
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 Measurements Intervals [place] Rate: 70 P: -25 SD: 184 QRS: -40 QRSD: 137 T: -10 QT: 428 QTc: 463 Interpretive Statements SINUS RHYTHM LEFT AXIS DEVIATION [QRS AXIS < -30] RIGHT BUNDLE BRANCH BLOCK [120+ ms QRS DURATION, UPRIGHT V1, 40+ ms S IN I/aVL/V4/V5/V6] Compared to ECG 10/14/2021 10:30:05 Ventricular premature complex(es) no longer present Electronically Signed On 10-14-2021 22:04:21 CDT by No Dominguez M.D. [id number]
[2021-10-14 13:50] VITALS: BP 125/65; PULSE 67; RESP 14; O2SAT 98
[2021-10-14 15:19] LABS: Troponin 5 2HR 12.46 ng/L (0-15)
[2021-10-14 15:44] LABS: Troponin 5 2HR Delta -1.54 ABS# (0-10)
[2021-10-14 15:54] VITALS: BP 106/59; PULSE 70; RESP 22; O2SAT 94
[2021-10-14 16:44] VITALS: BP 106/59; PULSE 70; RESP 22; O2SAT 93
--- NOTE | 2021-10-14 17:05 | PM.HP ---
Providers/Chief Complaint Admitting Physician: Carolyne Castelan MD Primary Care Provider: Mynor Tesfaye MD Chief Complaint: MULTIPLE FALLS History of Present Illness Tom Sims Jr is a 76 year old male with history of Lewy body dementia recurrent falls in the past presented to hospital after 2 episodes of falls in the last 48 hours. Patient is stating that yesterday he was working in his backyard when around 4 PM he became confused, hit his head against the wall while he was in his wheelchair. No seizure-like activity was noted at that point he had an episode of chest pain which resolved. Today his found him on the floor, called EMS who brought him to the ER. He was on the floor for about 4 hours. According to the he has been getting worse of his mentation, recurrent falls and today she noticed slurring of speech as well. As per the patient was confused yesterday when he fell and hit his head against a concrete wall. In the ER he was diagnosed with generalized weakness and dehydration. is concerned that she will not be able to take care of him however at the time of my evaluation patient is stating that he is back to his baseline would like to go home and avoid rehab as it did not work in his favor last time when he had to go to the rehab after his knee surgery. Patient is complaining of soreness in his left hip and back. No active bruising currently Mild swelling behind his right ear Troponin with negative delta No active chest pain Chest x-ray unremarkable No signs of fracture on humerus, hip x-ray, head CT unremarkable and daughter at the bedside Review of Systems Const: Reports: body aches Eyes: Denies: change in vision ENMT: Denies: throat pain Card: Reports: chest pain Resp: Denies: dyspnea GI: Denies: abdominal pain : Denies: flank pain Musc: Reports: neck pain, back pain, extremity pain, joint pain and joint stiffness Skin/Breast: Denies: rash Neuro: Reports: lack of coordination, difficulty walking and frequent falls; Denies: headache(s) Psych: Denies: anxiety Endo: Denies: polyuria Kun/Lymph: Denies: easy bruising All/Imm: Denies: urticaria Medications/Allergies Home Medications Medication Instructions Recorded Confirmed Last Taken Type aspirin 81 mg tablet,delayed 81 mg PO QA 08/21/19 10/14/2110/14/22 08:30 History release (Adult Low Dose Aspirin) dutasteride 0.5 mg capsule 0.5 mg PO BEDTIME 08/21/19 10/14/21 10/13/21 History simvastatin 20 mg tablet 20 mg PO BEDTIME 08/21/19 10/14/21 10/13/21 History citalopram 20 mg tablet 20 mg PO QAM 04/09/20 10/14/21 10/14/21 History pantoprazole 40 mg tablet,delayed 40 mg PO BID tab 08/10/20 10/14/21 10/14/21 08:30 History release galantamine 24 mg 24 hr 24 mg PO QAM #90 cap 07/12/21 10/14/21 10/14/21 08:30 Rx capsule,extended release clonazepam 1 mg tablet 1 mg PO BEDTIME #90 tab 07/13/21 10/14/21 10/13/21 Rx cholecalciferol (vitamin D3) 50 50 mcg PO QAM 10/14/21 10/14/21 10/14/21 08:30 History mcg (2,000 unit) capsule meloxicam 15 mg tablet 15 mg PO DAILY PRN 10/14/21 10/14/21 Unknown History multivitamin 1 tab PO QAM 10/14/21 10/14/21 10/14/21 08:30 History oxycodone-acetaminophen 5 mg-325 1 tab PO Q6H PRN 10/14/21 10/14/21 10/14/21 08:30 History mg tablet ropinirole 0.5 mg tablet 0.5 mg PO TID 10/14/21 10/14/21 10/14/21 08:30 History trazodone 100 mg tablet 100 mg PO BEDTIME PRN 10/14/21 10/14/21 Unknown History Allergies Allergy/AdvReac Type Severity Reaction Status Date / Time No Known Allergies Allergy Verified 10/14/21 15:35 PFSH Acute PFSH: Medical History Basal cell carcinoma BPH (benign prostatic hyperplasia) Cervical disc disorder with myelopathy of mid-cervical region GERD (gastroesophageal reflux disease) GERD (gastroesophageal reflux disease) H/O fracture of pelvis History of colon polyps History of malignant melanoma History of torn meniscus of left knee (2019) Surgery Dr. Daigle History of torn meniscus of right knee Hyperlipidemia Intervertebral disc disorder with radiculopathy of lumbosacral region Lumbar disc disease Osteoporosis Osteoporosis RBBB Surgical History H/O esophagogastroduodenoscopy 09/24/2019: Gastritis and hiatal hernia History of carpal tunnel release History of colonoscopy (~2006) 09/24/2019: Sigmoid diverticulosis, 2 cm sessile polyp at the ileocecal valve History of inguinal hernia repair Right History of open reduction and internal fixation (ORIF) procedure left hip 2018 History of spinal surgery 01/2011 [facility] L3-L4 lumbar decompression Family History Mother Diabetes Myocardial infarction Father Myocardial infarction Other CAD (coronary artery disease) Denies family history of Rheumatoid arthritis Lupus Anesthesia complication Bleeding disorder Cancer Social History Smoking and tobacco status: former smoker Quit status (tobacco): has quit using tobacco Year quit tobacco: 1970 Alcohol intake: never Household members: spouse Marital status: Current occupational status: retired History of recent travel: No Vitals/I&O/Wt Last Vital Signs Temp 98.8 F 10/14/21 11:16 Pulse 70 10/14/21 16:44 Resp 22 H 10/14/21 16:44 BP 106/59 10/14/21 16:44 Pulse Ox 93 10/14/21 16:44 Weight last 48 hrs Weight 85.275 kg Physical Exam Narrative: Very pleasant cooperative male NIH 0 EOMI, PERRLA Nonfocal neuro exam Mild right-sided facial droop Scanning speech Patient is able to comprehend all my questions Unable to understand his answers without any difficulty No active chest pain No audible stridor or wheezing No abdominal complaints Nondistended abdomen Family at the bedside Data : 10/14/21 12:38 10/14/21 12:38 A&P Assessment and plan (1) TIA (transient ischemic attack): Status: Acute (2) Recurrent falls: Status: Acute (3) Orthostatic hypotension due to Parkinson's disease: Status: Acute (4) Shy-Drager syndrome: Status: Acute (5) Osteoporosis: Status: Acute (6) Primary osteoarthritis of left knee: Status: Acute (7) History of open reduction and internal fixation (ORIF) procedure: Status: Acute (8) Primary osteoarthritis of left hip: Status: Acute (9) Lewy body dementia without behavioral disturbance: Status: Acute (10) Parkinsonian features: Status: Acute (11) RBBB: Status: Acute (12) Cervical radiculopathy: Status: Acute Plan TIA Slurred speech Symptoms improved at the time of my evaluation NIH 0, no need of MRI head Add Plavix to his aspirin Continue simvastatin 20 EKG showing sinus rhythm right bundle branch block Troponin with negative delta Patient is back to his baseline PT evaluation Patient is not interested in rehab or longterm however is concerned, I would like to see how he does with physical therapy and devise disposition plan further Parkinson's with Lewy body dementia As per the it has been getting worse Patient is full code, will like to think about it overnight and let us know in the morning, he does not have any living will, and daughter at the bedside Continue Klonopin and clonazepam patient is stating that he gets nightmares if he does not get his pills Ropinirole for restless leg syndrome His recurrent falls are related to Lewy body dementia with sleep disorder and gait apraxia he has seen Dr. Mancini in 2020. Sustained hip fracture secondary to fall and orthostatic hypotension, Has seen Dr. Madrigal for Parkinson's, he has not tolerated Northera, CTA head and neck less than 50% stenosis, EMG study showed peripheral neuropathy Loop recorder unremarkable He also has orthostatic hypotension, midodrine has been stopped, off Florinef because of hypertension he also has OCD features Might benefit from pyridostigmine, please discuss with the patient and family tomorrow Has tried salt tablets as well Supine hypertension has improved Full code Check CPK Regular diet Physical therapy evaluation Attestations Medical Necessity Statement*: Anticipating discharge within 40 anticipating discharge within 48 hours Time Spent in Patient Care: 30min Coding Level of Care Code Acute Refractory Technician for Jane Fwfrancisco Diagnoses TIA (transient ischemic attack) G45.9 Recurrent falls R29.6 Orthostatic hypotension due to Parkinson's disease G90.3 Shy-Drager syndrome G90.3 Osteoporosis M81.0 Primary osteoarthritis of left knee M17.12 History of open reduction and internal fixation (ORIF) procedure Z98.890 Primary osteoarthritis of left hip M16.12 Lewy body dementia without behavioral disturbance G31.83; F02.80 Parkinsonian features R25.9 RBBB I45.10 Cervical radiculopathy M54.12
--- NOTE | 2021-10-14 17:21 | ECG_ITS ---
[facility] Test Date: 2021-10-14 Pat Name: Tom Sims Department: Room: 254 Gender: Male [employer]: : 1945 Requested By: Genoveva Hill Order Number: [id number] Maurice MD: No Dominguez M.D. Measurements Intervals [place] Rate: 69 P: 16 NM: 208 QRS: -33 QRSD: 145 T: 0 QT: 441 QTc: 474 Interpretive Statements SINUS RHYTHM LEFT AXIS DEVIATION [QRS AXIS < -30] RIGHT BUNDLE BRANCH BLOCK [120+ ms QRS DURATION, UPRIGHT V1, 40+ ms S IN I/aVL/V4/V5/V6] Compared to ECG 10/14/2021 12:25:58 No significant changes Electronically Signed On 10-14-2021 22:10:11 CDT by No Dominguez M.D. [id number]
[2021-10-14] MEDS: enoxaparin 40 mg/0.4 mL Syringe SUBCUT (17:41)
[2021-10-14] MEDS: pantoprazole DR 40 mg Tablet PO (17:42)
[2021-10-14 18:40] LABS: Vitamin B12 644 pg/mL (232-1245)
[2021-10-14 19:41] LABS: Troponin 5 6HR 13.82 ng/L (0-15)
[2021-10-14 19:44] LABS: Troponin 5 6HR Delta -0.18 ng/L (0-12)
[2021-10-14 20:35] VITALS: PULSE 62; RESP 16; O2SAT 94
[2021-10-14] MEDS: CLONazepam 1 mg Tablet PO (21:08)
[2021-10-14] MEDS: dutasteride 0.5 mg Capsule PO (21:08)
[2021-10-14] MEDS: ropinirole 0.25 mg Tablet 0.5 MG PO (21:08)
[2021-10-14] MEDS: atorvastatin 40 mg Tablet 20 MG PO (21:08)
[2021-10-14 21:19] VITALS: BP 129/65; PULSE 67; RESP 16; TEMP 36.7; O2SAT 95
[2021-10-14] MEDS: trazodone 100 mg Tablet PO (21:19)
[2021-10-15] VITALS: BP 110/57; PULSE 67; RESP 16; TEMP 36.4; O2SAT 95
[2021-10-15 04:00] VITALS: BP 108/65; PULSE 62; RESP 16; TEMP 36.6; O2SAT 95
[2021-10-15 05:24] LABS: Basophils % 0.1 %; Eosinophils # 0.1 10^3/uL (0.0-0.8); Eosinophils % 0.8 %; Hematocrit 34.6 % (42.0-52.0); Hemoglobin 11.2 g/dL (11.7-16.6); Lymphocytes # 2.2 10^3/uL (0.8-4.8); Lymphocytes % 28.8 %; Mean Corpuscular HGB Conc 32.4 g/dL (30.0-36.0); Mean Corpuscular Hemoglobin 29.6 pg (28.0-34.0); Mean Corpuscular Volume 91.5 fl (80-94); Mean Platelet Volume 11.4 fL (7.4-10.4); Monocytes # 0.6 10^3/uL (0.2-0.9); Monocytes % 7.1 %; Neutrophils # 4.83 10^3/uL (1.8-7.7); Neutrophils % 62.8 %; Nucleated Red Blood Cells % 0 %; Platelet Count 163 10^3/cmm (130-400); Red Blood Count 3.78 10^6/uL (4.1-5.3); Red Cell Distribution Width 13.8 % (12.1-15.1); White Blood Count 7.7 10^3/uL (4.0-10.0)
[2021-10-15 05:46] LABS: Anion Gap 13.9 (5-19); Blood Urea Nitrogen 15 mg/dL (8-23); Calcium 9.3 mg/dL (8.5-10.5); Carbon Dioxide 24 mmol/L (22-29); Chloride 104 mmol/L (98-107); Creatinine Clr Calc Pharmacy 86.8323; Glucose 105 mg/dL (65-115); Osmolality Calculated 287 mOsm/kg (285-295); Potassium 3.9 mmol/L (3.5-5.1); Sodium 138 mmol/L (136-145)
[2021-10-15 05:47] VITALS: PULSE 55
[2021-10-15] MEDS: citalopram 20 mg Tablet PO (06:18)
[2021-10-15] MEDS: aspirin 81 mg EC Tablet PO (06:18)
[2021-10-15] MEDS: clopidogrel 75 mg Tablet PO (08:01)
[2021-10-15] MEDS: pantoprazole DR 40 mg Tablet PO (08:01)
[2021-10-15] MEDS: ropinirole 0.25 mg Tablet 0.5 MG PO (08:01)
[2021-10-15 08:38] VITALS: PULSE 67; RESP 16; O2SAT 93
--- NOTE | 2021-10-15 10:47 | PC.CHAP ---
Pastoral Care Encounter/Spiritual Assessment Type of Contact [] Declined belt lacer visit [] Patient/Family/Request visit [] Outpatient visit [] Follow-up visit [] Physician referral [] Code/Alert [x] Routine visit [] Staff referral [] Actively dying [x] Patient sleeping [] Family support [] [] Out of room [] Palliative care [] [] Receiving care in room [] Pre-surgical visit [] Trauma [] Long length of stay [] ICU visit [] Other: Relational/Emotional Strength [] Patient feels connected with others/family/visitors/staff [] Distress [] Loneliness/isolation [] Abandonment Spirituality of Patient [] Person of Radha [] Attends Mu-Ism of their Radha [] Believes in Prayer [] Reads Bible or Scientology materials [] There are Spiritual issues to be addressed Director Nurses' Registry Interventions [] Prayer [] Active listening [] Non-anxious presence [] Spiritual/emotional support [] Crisis/trauma care [] Spiritual counseling [] Bereavement support [] Provided bereavement packet [] Provided Bible/devotional materials [] Provided toy/stuffed animal, coloring book to patient or family member [] Provided Communion [] Anointing/[place] [] Salvation [] Completed spiritual assessment [] Other: Impact on Illness or Injury [] Angry [] Fearful [] Anxious [] Often cries [] Exhaustion [] Unable to work [] Unable to attend congregation [] Unable to walk/stand [] Unable to read [] Unable to drive [] Unable to eat/drink [] Unable to sleep [] Unable to be with family [] Patient intubated [] Other: Summary Time spent with patient
--- NOTE | 2021-10-15 11:20 | PM.DCS ---
Discharge Providers Date of Admission: 10/14/21 13:48 Date of Discharge: October 15, 2021 Attending Provider at Admission: Carolyne Castelan MD Attending Provider at Discharge: David Weems MD Primary Care Provider: Mynor Tesfaye MD Diagnoses at Discharge Discharge Diagnosis (1) TIA (transient ischemic attack): Status: Acute (2) Recurrent falls: Status: Acute (3) Orthostatic hypotension due to Parkinson's disease: Status: Acute (4) Shy-Drager syndrome: Status: Acute (5) Osteoporosis: Status: Acute (6) Primary osteoarthritis of left knee: Status: Acute (7) History of open reduction and internal fixation (ORIF) procedure: Status: Acute Permanent problem details: left hip 2018 (8) Primary osteoarthritis of left hip: Status: Acute (9) Lewy body dementia without behavioral disturbance: Status: Acute (10) Parkinsonian features: Status: Acute (11) RBBB: Status: Acute (12) Cervical radiculopathy: Status: Acute Reason for Visit Reason for Visit: MULTIPLE FALLS Hospital Course Hospital Course Tom Sims Jr is a 76 year old male with history of Lewy body dementia recurrent falls in the past presented to hospital after 2 episodes of falls in the last 48 hours.? Patient is stating that yesterday he was working in his backyard when around 4 PM he became confused, hit his head against the wall while he was in his wheelchair.? No seizure-like activity was noted at that point he had an episode of chest pain which resolved.? Today his found him on the floor, called EMS who brought him to the ER.? He was on the floor for about 4 hours.? According to the he has been getting worse of his mentation, recurrent falls and today she noticed slurring of speech as well.? Patient was admitted to [facility] for TIA-like symptoms, NIH stroke scale on examination was 0, remained alert oriented x3, following all commands, no focal neurologic deficits, no slurred speech. He was managed on aspirin, statin, Plavix during his hospitalization. On discharge continue aspirin and statin. Given patient's history of significant falls as below, I feel that discharging on Plavix carries greater risks than benefits, I am worried about his risk of significant intracranial bleed, traumatic bleeding, etc. as there is unfortunately no good solution to his recurrent falls. Continue aspirin statin on discharge. Follow-up with Dr. Mancini as outpatient For his recurrent falls, history of Lewy body dementia, history of gait apraxia, history of hip fracture secondary to fall, history of orthostatic hypotension, history of peripheral neuropathy. He has had multiple evaluations, for his falls, he has had multiple medication trials for his Shy-Drager syndrome. For now I will hold off on trying pyridostigmine, follow-up with Dr. Mancini's as outpatient. Continue to change position, ambulate with supervision and care. Declined detention stay, will go home under the care of his . If any recurrent falls please come back to emergency room. Physical Exam Const: COMMON NORMALS: no acute distress and patient oriented x3 Neck/C-Spine: COMMON NORMALS: no JVD Resp: COMMON NORMALS: normal respiratory effort, No retractions, No use of accessory muscles and clear to auscultation bilaterally AUSCULTATION: clear to auscultation bilaterally Cardio: COMMON NORMALS: no JVD, regular rate, regular rhythm, S1 normal heart sound present and S2 normal heart sound present RATE: regular rate RHYTHM: regular rhythm HEART SOUNDS: S1 normal heart sound present and S2 normal heart sound present GI: COMMON NORMALS: Normal to inspection, nondistended, normoactive bowel sounds present, Soft to palpation, non-tender and No hepatosplenomegaly present PALPATION: Yes Soft to palpation and Yes No hepatosplenomegaly present Extremity: COMMON NORMALS: no pedal edema Neuro: COMMON NORMALS: patient oriented x3 Psych: COMMON NORMALS: mental status grossly normal Discharge Data Studies Completed and Pending Completed Studies During Hospitalization Category Date Time Status CT head wo con* [id number] Urgent Cat Scan 10/14/21 11:20 Completed XR chest 1V portable [id number] Urgent Exams 10/14/21 11:21 Completed XR elbow LT 2V [id number] Urgent Exams 10/14/21 11:20 Completed XR forearm LT 2V [id number] Urgent Exams 10/14/21 11:20 Completed XR hip LT 2-3V wo/w pel* [id number] Urgent Exams 10/14/21 11:20 [place] [id number] Urgent Exams 10/14/21 11:20 Completed XR lumbar spine 2-3V* [id number] Urgent Exams 10/14/21 11:20 Completed XR shoulder LT min 2V* [id number] Urgent Exams 10/14/21 11:20 Completed Radiology Impressions Elbow X-Ray 10/14/21 11:20 IMPRESSION: No evidence of fracture or dislocation. Forearm X-Ray 10/14/21 11:20 IMPRESSION: No evidence of fracture or dislocation. Head CT 10/14/21 11:20 IMPRESSION: 1. No evidence of acute intracranial abnormality. No evidence of acute infarction, hemorrhage, or mass. 2. Atrophy and microvascular disease. Hip/Pelvis X-Ray 10/14/21 11:20 IMPRESSION: No acute abnormality. Humerus X-Ray 10/14/21 11:20 IMPRESSION: No evidence of fracture or dislocation. Lumbar Spine X-Ray 10/14/21 11:20 IMPRESSION: No evidence of acute fracture. Shoulder X-Ray 10/14/21 11:20 IMPRESSION: No evidence of fracture or dislocation. Chest X-Ray 10/14/21 11:21 IMPRESSION: New opacity left lower lobe may be atelectasis/ Infiltrate. Laboratory Results WBC 7.7 10^3/uL (4.0-10.0) 10/15/21 04:46 RBC 3.78 10^6/uL (4.1-5.3) L 10/15/21 04:46 Hgb 11.2 g/dL (11.7-16.6) L 10/15/21 04:46 Hct 34.6 % (42.0-52.0) L 10/15/21 04:46 MCV 91.5 fl (80-94) 10/15/21 04:46 MCH 29.6 pg (28.0-34.0) 10/15/21 04:46 MCHC 32.4 g/dL (30.0-36.0) 10/15/21 04:46 RDW 13.8 % (12.1-15.1) 10/15/21 04:46 Plt Count 163 10^3/cmm (130-400) 10/15/21 04:46 MPV 11.4 fL (7.4-10.4) H 10/15/21 04:46 Neut % (Auto) 62.8 % 10/15/21 04:46 Lymph % (Auto) 28.8 % 10/15/21 04:46 [place] % (Auto) 7.1 % 10/15/21 04:46 Eos % (Auto) 0.8 % 10/15/21 04:46 Baso % (Auto) 0.1 % 10/15/21 04:46 Neut # (Auto) 4.83 10^3/uL (1.8-7.7) 10/15/21 04:46 Lymph # (Auto) 2.2 10^3/uL (0.8-4.8) 10/15/21 04:46 [place] # (Auto) 0.6 10^3/uL (0.2-0.9) 10/15/21 04:46 Eos # (Auto) 0.1 10^3/uL (0.0-0.8) 10/15/21 04:46 Baso # (Auto) 0.0 10^3/uL (0.0-0.1) 10/15/21 04:46 Nucleated RBC % (auto) 0 % 10/15/21 04:46 Nucleated RBCs # 0.0 /100WBC 10/15/21 04:46 Sodium 138 mmol/L (136-145) 10/15/21 04:46 Potassium 3.9 mmol/L (3.5-5.1) 10/15/21 04:46 Chloride 104 mmol/L (98-107) 10/15/21 04:46 Carbon Dioxide 24 mmol/L (22-29) 10/15/21 04:46 Anion Gap 13.9 (5-19) 10/15/21 04:46 BUN 15 mg/dL (8-23) 10/15/21 04:46 Creatinine 0.8 mg/dL (0.7-1.2) 10/15/21 04:46 GFR Calculation Not Reportable 10/15/21 04:46 Glucose 105 mg/dL (65-115) 10/15/21 04:46 Calculated Osmolality 287 mOsm/kg (285-295) 10/15/21 04:46 Calcium 9.3 mg/dL (8.5-10.5) 10/15/21 04:46 Troponin T Baseline 14 ng/L (0-15) 10/14/21 12:38 Troponin T 120 Minute 12.46 ng/L (0-15) 10/14/21 14:52 Delta Troponin T -1.54 ABS# (0-10) L 10/14/21 14:52 Troponin T Hi Sens 6Hr 13.82 ng/L (0-15) 10/14/21 18:46 Troponin T Hi Sens 6Hr Delta -0.18 ng/L (0-12) L 10/14/21 18:46 Vitamin B12 644 pg/mL (232-1245) 10/14/21 12:38 Vitals Last Vital Signs Temp 97.8 F 10/15/21 04:00 Pulse 67 10/15/21 08:38 Resp 16 10/15/21 08:38 BP 108/65 10/15/21 04:00 Pulse Ox 93 10/15/21 08:38 Discharge Plan Discharge Patient Disposition: Home Condition: Stable Prescriptions: Continued galantamine 24 mg capsule,ext rel. pellets 24 hr 24 mg PO QAM Qty: 90 1RF Rx Instructions: administer with breakfast clonazepam 1 mg tablet 1 mg PO BEDTIME Qty: 90 1RF dutasteride 0.5 mg capsule 0.5 mg PO BEDTIME 0RF aspirin [Adult Low Dose Aspirin] 81 mg tablet,delayed release (DR/EC) 81 mg PO QAM 0RF simvastatin 20 mg tablet 20 mg PO BEDTIME 0RF pantoprazole 40 mg tablet,delayed release (DR/EC) 40 mg PO BID 0RF citalopram 20 mg tablet 20 mg PO QAM 0RF multivitamin Tablet 1 tab PO QAM 0RF meloxicam 15 mg tablet 15 mg PO DAILY PRN (Reason: Pain) 0RF oxycodone-acetaminophen 5-325 mg tablet 1 tab PO Q6H PRN (Reason: Pain) 0RF trazodone 100 mg tablet 100 mg PO BEDTIME PRN (Reason: Sleep) 0RF ropinirole 0.5 mg tablet 0.5 mg PO TID 0RF cholecalciferol (vitamin D3) 50 mcg (2,000 unit) capsule 50 mcg PO QAM 0RF Discharge Orders: Discharge Order (Routine); Ordered 10/15/21 Ordered By: David Weems Referrals: Manasa Mancini MD [Physician] - 1 week Mynor Tesfaye MD [Primary Care Provider] - Discharge Diet: Cardiac Discharge Activity: Resume usual activity Patient Instructions: Opioid Safety Activity Restrictions/Additional Instructions: -Please follow-up with Dr. Mancini Discharge Attestations Time Spent in Discharge Care*: less than 30 min Quality Metrics Clinical Quality Measures [ Cerebrovascular Accident { Contraindication to Antithrombotic: None; antithrombotic prescribed; Contraindication to Anticoagulation: Overlap treatment not indicated; Contraindication to Statin: None; Statin prescribed;}] Coding Level of Care Code Acute Chg FW [place] note Diagnoses TIA (transient ischemic attack) G45.9 Recurrent falls R29.6 Orthostatic hypotension due to Parkinson's disease G90.3 Shy-Drager syndrome G90.3 Osteoporosis M81.0 Primary osteoarthritis of left knee M17.12 History of open reduction and internal fixation (ORIF) procedure Z98.890 Primary osteoarthritis of left hip M16.12 Lewy body dementia without behavioral disturbance G31.83; F02.80 Parkinsonian features R25.9 RBBB I45.10 Cervical radiculopathy M54.12
[2021-10-15 11:24] VITALS: BP 115/68; PULSE 60; RESP 16; TEMP 36.8; O2SAT 93
[2021-10-15 13:18] LABS: Add Urine Microscopic? NO; Charge for UA Resulting for Rev
[2021-10-15 13:46] LABS: Bilirubin Urine Neg (Negative); Blood Urine Neg (Negative); Glucose Urine UA Norm (Normal); Ketones Urine Negative (Negative); Leukocyte Esterase Urine Negative (Negative); Nitrate Urine Negative (Negative); Protein Urine Neg (Negative); Specific Gravity, Urine 1.015 (1.005-1.030); Urine Appearance Clear (CLEAR); Urine Color Yellow (Yellow); Urobilinogen Urine Neg (Negative); pH Urine 6 (5-7)
== END 2021-10-15 14:04 | disposition home or self-care (01) ==
LOC: ER 11:30 → MEDSURG 15:54
PROVIDERS: Admitting Provider Internal Medicine; Emergency Provider Emergency Medicine; PCP Family Medicine; Visit Provider Family Medicine
DX: G45.9 Transient cerebral ischemic attack, unspecified (principal); R29.700 NIHSS score 0; R29.6 Repeated falls; G90.3 Multi-system degeneration of the autonomic nervous system; M81.0 Age-related osteoporosis without current pathological fracture; M17.12 Unilateral primary osteoarthritis, left knee; M16.12 Unilateral primary osteoarthritis, left hip; G31.83 Neurocognitive disorder with Lewy bodies; F02.80 Dementia in other diseases classified elsewhere, unspecified severity, without behavioral disturbance, psychotic disturbance, mood disturbance, and anxiety; R25.9 Unspecified abnormal involuntary movements; I45.10 Unspecified right bundle-branch block; M54.12 Radiculopathy, cervical region; E78.5 Hyperlipidemia, unspecified; Z83.3 Family history of diabetes mellitus; Z82.49 Family history of ischemic heart disease and other diseases of the circulatory system; Z87.891 Personal history of nicotine dependence
CPT/HCPCS: 36415; 70450; 71045; 72100; 73030; 73060; 73070; 73090; 73502; 80048; 81003; 82607; 84484; 85025; 93005; 97110; 97162; 97530; 99285; G0378; J1650

== ENCOUNTER → 2021-10-19 11:23 | Outpatient (BNVA) | payer MEDICARE, OTHER, SELFPAY | PROVIDERS: PCP Family Medicine; Visit Provider Anesthesiology Pain Medicine | DX: M25.561 Pain in right knee (principal); M51.17 Intervertebral disc disorders with radiculopathy, lumbosacral region; M48.062 Spinal stenosis, lumbar region with neurogenic claudication; M47.812 Spondylosis without myelopathy or radiculopathy, cervical region; M54.81 Occipital neuralgia; Z98.890 Other specified postprocedural states; Z87.828 Personal history of other (healed) physical injury and trauma; Z79.891 Long term (current) use of opiate analgesic; Z87.891 Personal history of nicotine dependence | CPT/HCPCS: 99214 ==

== ENCOUNTER → 2021-10-20 07:55 | Outpatient (BNVA) | payer MEDICARE, OTHER, SELFPAY | PROVIDERS: PCP Family Medicine; Referring Provider Family Medicine; Visit Provider Specialist | DX: M54.81 Occipital neuralgia (principal); G31.83 Neurocognitive disorder with Lewy bodies; F02.80 Dementia in other diseases classified elsewhere, unspecified severity, without behavioral disturbance, psychotic disturbance, mood disturbance, and anxiety; G90.3 Multi-system degeneration of the autonomic nervous system; R29.6 Repeated falls | CPT/HCPCS: 64405; 64450; 99214; 99215; J1030; J3490 ==

== ENCOUNTER → 2021-10-21 11:03 | Outpatient (BNVA) | payer MEDICARE, OTHER, SELFPAY | PROVIDERS: PCP Family Medicine; Visit Provider Internal Medicine Cardiovascular Disease | DX: R55 Syncope and collapse (principal); I10 Essential (primary) hypertension; I45.10 Unspecified right bundle-branch block | CPT/HCPCS: 99214 ==

== ENCOUNTER 2021-11-18 10:03 | Outpatient (CLI) | payer MEDICARE, OTHER, SELFPAY ==
[2021-11-18 10:10] VITALS: BP 127/76; PULSE 84; RESP 18; TEMP 36.6; O2SAT 97
[2021-11-18] MEDS: denosumab 60 mg SDV SUBCUT (10:15)
[2021-11-18 10:21] VITALS: BP 109/69; PULSE 72; RESP 18; TEMP 36.6; O2SAT 95
== END 2021-11-18 10:04 | disposition home or self-care (01) ==
PROVIDERS: PCP Family Medicine; Referring Provider Internal Medicine Rheumatology; Visit Provider Internal Medicine Rheumatology
DX: M81.0 Age-related osteoporosis without current pathological fracture (principal)
CPT/HCPCS: 96372; J0897

== ENCOUNTER → 2021-11-22 10:12 | Outpatient (BNVA) | payer MEDICARE, OTHER, SELFPAY | PROVIDERS: PCP Family Medicine; Visit Provider Anesthesiology Pain Medicine | DX: M17.12 Unilateral primary osteoarthritis, left knee (principal); M47.812 Spondylosis without myelopathy or radiculopathy, cervical region; M54.81 Occipital neuralgia; M48.062 Spinal stenosis, lumbar region with neurogenic claudication; M51.17 Intervertebral disc disorders with radiculopathy, lumbosacral region; Z87.828 Personal history of other (healed) physical injury and trauma; Z98.890 Other specified postprocedural states; Z79.891 Long term (current) use of opiate analgesic; Z87.891 Personal history of nicotine dependence | CPT/HCPCS: 99214 ==

== ENCOUNTER → 2021-11-30 07:58 | Outpatient (BNVA) | payer MEDICARE, OTHER, SELFPAY | PROVIDERS: PCP Family Medicine; Visit Provider Specialist | DX: M54.16 Radiculopathy, lumbar region (principal); M48.062 Spinal stenosis, lumbar region with neurogenic claudication; Z79.891 Long term (current) use of opiate analgesic; Z87.891 Personal history of nicotine dependence; M54.81 Occipital neuralgia; G31.83 Neurocognitive disorder with Lewy bodies; F02.80 Dementia in other diseases classified elsewhere, unspecified severity, without behavioral disturbance, psychotic disturbance, mood disturbance, and anxiety; R29.6 Repeated falls; G90.3 Multi-system degeneration of the autonomic nervous system | CPT/HCPCS: 64405; 64450; 64483; 64484; 99214; J1030; J1100; J3490 ==

== ENCOUNTER → 2021-12-14 08:55 | Outpatient (BNVA) | payer MEDICARE, OTHER, SELFPAY | PROVIDERS: PCP Family Medicine; Visit Provider Anesthesiology Pain Medicine | DX: M48.062 Spinal stenosis, lumbar region with neurogenic claudication (principal); M17.12 Unilateral primary osteoarthritis, left knee; M51.17 Intervertebral disc disorders with radiculopathy, lumbosacral region; M47.812 Spondylosis without myelopathy or radiculopathy, cervical region; M54.81 Occipital neuralgia; Z91.81 History of falling; Z87.828 Personal history of other (healed) physical injury and trauma; Z98.890 Other specified postprocedural states; Z87.891 Personal history of nicotine dependence | CPT/HCPCS: 20610; 99214; J1030; J3490 ==

== ENCOUNTER 2021-12-30 10:59 | Outpatient (CLI) | payer MEDICARE, OTHER, SELFPAY | END 2021-12-30 11:00 | disposition home or self-care (01) | LOC: HCSOACUTE 11:08 → RT 11:14 | PROVIDERS: PCP Family Medicine; Visit Provider Specialist | DX: R55 Syncope and collapse (principal); Z01.812 Encounter for preprocedural laboratory examination | CPT/HCPCS: 93005 ==

== ENCOUNTER → 2022-01-12 09:35 | Outpatient (BNVA) | payer MEDICARE, OTHER, SELFPAY | PROVIDERS: PCP Family Medicine; Visit Provider Specialist | DX: M54.81 Occipital neuralgia (principal); G20 Parkinson's disease; G90.3 Multi-system degeneration of the autonomic nervous system | CPT/HCPCS: 64405; 64450; 99214; 99215 ==

== ENCOUNTER → 2022-02-08 09:12 | Outpatient (BNVA) | payer MEDICARE, OTHER, SELFPAY | PROVIDERS: PCP Family Medicine; Visit Provider Anesthesiology Pain Medicine | DX: M48.062 Spinal stenosis, lumbar region with neurogenic claudication (principal); M51.17 Intervertebral disc disorders with radiculopathy, lumbosacral region; M47.812 Spondylosis without myelopathy or radiculopathy, cervical region; M17.12 Unilateral primary osteoarthritis, left knee; M54.81 Occipital neuralgia; Z87.828 Personal history of other (healed) physical injury and trauma; Z98.890 Other specified postprocedural states; Z87.891 Personal history of nicotine dependence; Z79.891 Long term (current) use of opiate analgesic | CPT/HCPCS: 99214 ==

== ENCOUNTER 2022-02-14 20:00 | Outpatient (CLI) | payer MEDICARE, OTHER, SELFPAY | END 2022-02-14 20:01 | disposition home or self-care (01) | LOC: SLEEP 02-15 07:41 | PROVIDERS: PCP Family Medicine; Visit Provider Specialist | DX: G47.33 Obstructive sleep apnea (adult) (pediatric) (principal) | CPT/HCPCS: 95811 ==

== ENCOUNTER → 2022-03-03 09:43 | Outpatient (BNVA) | payer MEDICARE, OTHER, SELFPAY | PROVIDERS: PCP Family Medicine; Visit Provider Anesthesiology Pain Medicine | DX: M48.062 Spinal stenosis, lumbar region with neurogenic claudication (principal); M51.17 Intervertebral disc disorders with radiculopathy, lumbosacral region; M47.812 Spondylosis without myelopathy or radiculopathy, cervical region; M17.12 Unilateral primary osteoarthritis, left knee; M54.81 Occipital neuralgia; Z87.828 Personal history of other (healed) physical injury and trauma; Z98.890 Other specified postprocedural states | CPT/HCPCS: 99214 ==

== ENCOUNTER 2022-03-14 14:53 | Outpatient (CLI) | payer MEDICARE, OTHER, SELFPAY ==
--- NOTE | 2022-03-14 15:02 | XR_ITS ---
WS: [id number] SCREENING DEXA SCAN [place] CLINICAL INFORMATION: M81.0 - Age-related osteoporosis without current patholog... COMPARISON: January 28, 2020 FINDINGS: The L1-L4 bone mineral density measures 0.981 g/cm2. This corresponds to a T score score of -2.0 and Z score of -1.3. Right femoral neck bone mineral density measures 0.533. This corresponds to a T score -3.9 and Z sco re of -2.9. XR/XR DEXA axial skeleton* [id number] IMPRESSION: Osteopenia lumbar spine and osteoporosis in the RIGHT femoral neck. Patient's FRAX calculated 10 year probability for major osteoporotic fracture i s 23.2 % and osteoporotic hip fracture is 12.2%. Bone mineral density lumbar spine increased + 7.7% since 2019 but likely spurio usly elevated due to endplate sclerosis. Bone mineral density in the RIGHT femoral neck has decreased -4.1% since 2019
== END 2022-03-14 14:54 | disposition home or self-care (01) ==
PROVIDERS: PCP Family Medicine; Visit Provider Internal Medicine Rheumatology
DX: M81.0 Age-related osteoporosis without current pathological fracture (principal); M85.80 Other specified disorders of bone density and structure, unspecified site
CPT/HCPCS: 77080

== ENCOUNTER 2022-03-18 11:27 | Outpatient (CLI) | payer MEDICARE, OTHER, SELFPAY ==
--- NOTE | 2022-03-18 11:43 | XRR_ITS ---
PROCEDURE INFORMATION: Exam: XR Chest Exam date and time: 03/18/2022 11:51 AM Age: 76 years old Clinical indication: Shortness of breath; Additional info: Obstructive sleep apnea TECHNIQUE: Imaging protocol: Radiologic exam of the chest. Views: 2 views. COMPARISON: CR XR chest 1V portable [id number] 10/14/2021 12:00 PM FINDINGS: Tubes, catheters and devices: Electronic stimulators in place in the anterior chest Lungs: Unremarkable. No consolidation. Pleural spaces: Unremarkable. No pleural effusion. No pneumothorax. Heart/Mediastinum: Unremarkable. No cardiomegaly. Bones/joints: Dorsal spine osteopenia and osteoarthritis XR/XR chest 2V* [id number] IMPRESSION: 1. No acute findings. 2. Electronic stimulator anterior chest
--- NOTE | 2022-03-18 11:43 | XR_ITS ---
WS: [id number] AP and lateral soft tissue views of the neck, today Clinical Data: OBSTRUCTIVE SLEEP APNEA Comparison: Cervical spine, 03/19/2021. Findings: There is a stimulator device in the right side of the neck. No prevertebral soft tissue swelling is s een. The hypopharynx shows no abnormalities. There is degenerative change of the cervical vertebral b odies C3-C7 with accompanying disc narrowing. There is calcification in the region the left carotid b ifurcation. The lung apices are normal. XR/XR soft tissue neck [id number] Impression: Stimulator device whose distal lead ends on the right side of the soft tissues of the neck at the C2 level anterior to the hypopharynx.
== END 2022-03-18 11:28 | disposition home or self-care (01) ==
PROVIDERS: PCP Family Medicine; Visit Provider Specialist
DX: G47.33 Obstructive sleep apnea (adult) (pediatric) (principal); R06.02 Shortness of breath
CPT/HCPCS: 70360; 71046

== ENCOUNTER → 2022-03-28 14:26 | Outpatient (BNVA) | payer MEDICARE, OTHER, SELFPAY | PROVIDERS: PCP Family Medicine; Visit Provider Anesthesiology Pain Medicine | DX: M48.062 Spinal stenosis, lumbar region with neurogenic claudication (principal); Z87.891 Personal history of nicotine dependence; M54.16 Radiculopathy, lumbar region | CPT/HCPCS: 64483; 64484; J3490 ==

== ENCOUNTER → 2022-04-05 10:26 | Outpatient (BNVA) | payer MEDICARE, OTHER, SELFPAY | PROVIDERS: PCP Family Medicine; Visit Provider Internal Medicine Rheumatology | DX: M81.0 Age-related osteoporosis without current pathological fracture (principal); Z79.899 Other long term (current) drug therapy; M18.0 Bilateral primary osteoarthritis of first carpometacarpal joints; I95.1 Orthostatic hypotension | CPT/HCPCS: 99214 ==

== ENCOUNTER → 2022-04-11 11:46 | Outpatient (BNVA) | payer MEDICARE, OTHER, SELFPAY | PROVIDERS: PCP Family Medicine; Visit Provider Anesthesiology Pain Medicine | DX: G89.29 Other chronic pain; M17.12 Unilateral primary osteoarthritis, left knee; M25.561 Pain in right knee; M48.062 Spinal stenosis, lumbar region with neurogenic claudication; M51.17 Intervertebral disc disorders with radiculopathy, lumbosacral region; M54.81 Occipital neuralgia; M47.812 Spondylosis without myelopathy or radiculopathy, cervical region; Z98.890 Other specified postprocedural states; Z87.828 Personal history of other (healed) physical injury and trauma; Z91.81 History of falling | CPT/HCPCS: 73560; 99214 ==

== ENCOUNTER → 2022-04-13 09:32 | Outpatient (BNVA) | payer MEDICARE, OTHER, SELFPAY | PROVIDERS: PCP Family Medicine; Visit Provider Specialist | DX: G20 Parkinson's disease (principal); G90.3 Multi-system degeneration of the autonomic nervous system; F02.80 Dementia in other diseases classified elsewhere, unspecified severity, without behavioral disturbance, psychotic disturbance, mood disturbance, and anxiety; M79.18 Myalgia, other site | CPT/HCPCS: 20553; 99214; J1030; J3490 ==

== ENCOUNTER 2022-05-06 13:25 | Outpatient (CLI) | payer MEDICARE, OTHER, SELFPAY | END 2022-05-06 13:26 | disposition home or self-care (01) | LOC: LAB 13:27 | PROVIDERS: PCP Family Medicine; Visit Provider Internal Medicine Rheumatology | DX: M19.90 Unspecified osteoarthritis, unspecified site (principal); Z79.899 Other long term (current) drug therapy | CPT/HCPCS: 36415; 82523 ==

== ENCOUNTER 2022-10-13 12:18 | Oncology outpatient (recurring) (ONCR) | payer MEDICARE, OTHER, SELFPAY ==
[2022-10-13 13:21] LABS: Albumin Level 4.1 g/dL (3.5-5.2)
[2022-10-13] MEDS: romosozumab-aqqg 210 mg/2.34 mL syr SUBCUT (14:30)
[2022-10-18 14:54] LABS: Vit D 1,25 (Oh)2, Total 31 pg/mL (18-72); Vit D2 1,25 (Oh)2 <8 pg/mL; Vit D3 1,25 (Oh)2 31 pg/mL
== END 2022-10-28 23:59 | disposition home or self-care (01) ==
PROVIDERS: PCP Family Medicine; Visit Provider Internal Medicine Rheumatology
DX: M81.0 Age-related osteoporosis without current pathological fracture (principal); Z79.899 Other long term (current) drug therapy
CPT/HCPCS: 36415; 82040; 82565; 82652; J3590

== ENCOUNTER → 2022-10-18 14:02 | Outpatient (BNVA) | payer MEDICARE, OTHER, SELFPAY | PROVIDERS: PCP Family Medicine; Visit Provider Internal Medicine Rheumatology | DX: M81.0 Age-related osteoporosis without current pathological fracture (principal); M25.569 Pain in unspecified knee; Z79.899 Other long term (current) drug therapy | CPT/HCPCS: 73562; 99214 ==

== ENCOUNTER 2022-10-25 20:00 | Outpatient (CLI) | payer MEDICARE, OTHER, SELFPAY | END 2022-10-25 20:01 | disposition home or self-care (01) | LOC: SLEEP 10-26 05:00 | PROVIDERS: PCP Family Medicine; Visit Provider Specialist | DX: G47.33 Obstructive sleep apnea (adult) (pediatric) (principal) | CPT/HCPCS: 95810 ==

== ENCOUNTER 2022-11-10 12:21 | Oncology outpatient (recurring) (ONCR) | payer MEDICARE, OTHER, SELFPAY ==
[2022-11-10] MEDS: romosozumab-aqqg 210 mg/2.34 mL syr SUBCUT (13:02)
== END 2022-11-27 23:59 | disposition home or self-care (01) ==
LOC: ONCMED 12:21
PROVIDERS: PCP Family Medicine; Visit Provider Internal Medicine Rheumatology
DX: M81.0 Age-related osteoporosis without current pathological fracture (principal)
CPT/HCPCS: 96402; J3590

== ENCOUNTER → 2022-11-11 09:33 | Outpatient (BNVA) | payer MEDICARE, OTHER, SELFPAY | PROVIDERS: PCP Family Medicine; Visit Provider Family Medicine | DX: Z51.81 Encounter for therapeutic drug level monitoring (principal); E78.5 Hyperlipidemia, unspecified; R73.09 Other abnormal glucose; R55 Syncope and collapse; Z98.890 Other specified postprocedural states; K21.9 Gastro-esophageal reflux disease without esophagitis; G31.83 Neurocognitive disorder with Lewy bodies; F02.80 Dementia in other diseases classified elsewhere, unspecified severity, without behavioral disturbance, psychotic disturbance, mood disturbance, and anxiety; R25.9 Unspecified abnormal involuntary movements; Z13.220 Encounter for screening for lipoid disorders; M25.562 Pain in left knee; Z85.820 Personal history of malignant melanoma of skin | CPT/HCPCS: 80053; 80061; 83036; 85025 ==

== ENCOUNTER 2022-12-08 12:55 | Oncology outpatient (recurring) (ONCR) | payer MEDICARE, OTHER, SELFPAY ==
[2022-12-08 13:38] VITALS: BP 119/72; PULSE 64; RESP 18; TEMP 36.6; O2SAT 97
[2022-12-08] MEDS: romosozumab-aqqg 210 mg/2.34 mL syr SUBCUT (13:59)
== END 2022-12-28 23:59 | disposition home or self-care (01) ==
PROVIDERS: PCP Family Medicine; Visit Provider Internal Medicine Rheumatology
DX: M81.0 Age-related osteoporosis without current pathological fracture (principal)
CPT/HCPCS: 96372; J3590

== ENCOUNTER → 2022-12-28 13:38 | Outpatient (BNVA) | payer MEDICARE, OTHER, SELFPAY | PROVIDERS: PCP Family Medicine; Visit Provider Internal Medicine Cardiovascular Disease | DX: I95.1 Orthostatic hypotension (principal); R25.9 Unspecified abnormal involuntary movements; G31.83 Neurocognitive disorder with Lewy bodies; F02.80 Dementia in other diseases classified elsewhere, unspecified severity, without behavioral disturbance, psychotic disturbance, mood disturbance, and anxiety; I10 Essential (primary) hypertension | CPT/HCPCS: 99214 ==

== ENCOUNTER 2023-01-05 11:24 | Oncology outpatient (recurring) (ONCR) | payer MEDICARE, OTHER, SELFPAY ==
[2023-01-05] MEDS: romosozumab-aqqg 210 mg/2.34 mL syr SUBCUT (12:36)
[2023-01-05 12:41] VITALS: BP 130/73; PULSE 62; RESP 18; TEMP 35.8; O2SAT 98
== END 2023-01-27 23:59 | disposition home or self-care (01) ==
LOC: ONCMED 11:24
PROVIDERS: PCP Family Medicine; Visit Provider Internal Medicine Rheumatology
DX: L81.4 Other melanin hyperpigmentation (principal); D22.5 Melanocytic nevi of trunk; Z71.89 Other specified counseling; L85.3 Xerosis cutis; L57.8 Other skin changes due to chronic exposure to nonionizing radiation; L57.0 Actinic keratosis; D69.2 Other nonthrombocytopenic purpura; L21.8 Other seborrheic dermatitis
CPT/HCPCS: 17004; 96372; 99214; J3590

== ENCOUNTER 2023-02-02 12:45 | Oncology outpatient (recurring) (ONCR) | payer MEDICARE, OTHER, SELFPAY ==
[2023-02-02 13:00] VITALS: BP 111/69; PULSE 81; RESP 18; TEMP 36.3; O2SAT 97
[2023-02-02] MEDS: romosozumab-aqqg 210 mg/2.34 mL syr SUBCUT (13:20)
[2023-02-02 13:27] VITALS: BP 111/68; PULSE 81; RESP 18; TEMP 36.4; O2SAT 98
== END 2023-02-27 23:59 | disposition home or self-care (01) ==
PROVIDERS: PCP Family Medicine; Visit Provider Internal Medicine Rheumatology
DX: M81.0 Age-related osteoporosis without current pathological fracture (principal)
CPT/HCPCS: 96372; J3590

== ENCOUNTER → 2023-03-15 09:52 | Outpatient (BNVA) | payer MEDICARE, OTHER, SELFPAY | PROVIDERS: PCP Family Medicine; Visit Provider Specialist | DX: M25.561 Pain in right knee (principal); M25.562 Pain in left knee; G89.29 Other chronic pain | CPT/HCPCS: 73562; 73564; 99204 ==

== ENCOUNTER 2023-03-30 13:00 | Oncology outpatient (recurring) (ONCR) | payer MEDICARE, OTHER, SELFPAY ==
[2023-03-02] MEDS: romosozumab-aqqg 210 mg/2.34 mL syr SUBCUT (13:29)
[2023-03-30 13:30] VITALS: BP 118/67; PULSE 84; RESP 18; TEMP 35.8; O2SAT 96
[2023-03-30] MEDS: romosozumab-aqqg 210 mg/2.34 mL syr SUBCUT (13:39)
[2023-03-30 13:43] VITALS: BP 118/67; PULSE 84; RESP 17; TEMP 35.8; O2SAT 96
== END 2023-03-30 23:59 | disposition home or self-care (01) ==
PROVIDERS: PCP Family Medicine; Visit Provider Internal Medicine Rheumatology
DX: M81.0 Age-related osteoporosis without current pathological fracture (principal)
CPT/HCPCS: 96401; J3111

== ENCOUNTER → 2023-04-04 13:49 | Outpatient (BNVA) | payer MEDICARE, OTHER, SELFPAY | PROVIDERS: PCP Family Medicine; Visit Provider Internal Medicine Rheumatology | DX: M81.0 Age-related osteoporosis without current pathological fracture (principal); Z79.899 Other long term (current) drug therapy | CPT/HCPCS: 80076; 82306; 82310; 82565; 85025; 86140; 99214 ==

== ENCOUNTER 2023-04-10 15:44 | Outpatient (CLI) | payer MEDICARE, OTHER, SELFPAY ==
--- NOTE | 2023-04-10 16:00 | MR_ITS ---
WS: [id number] MRI LEFT KNEE NONCONTRAST TECHNIQUE: Axial PD, coronal PD fat sat, coronal PD, sagittal PD, and sagittal PD fat-sat images obta ined. CLINICAL INFORMATION: knee pain COMPARISON: None. FINDINGS: Intramedullary fixation prashant distal femur with susceptibility artifact. Distal quadriceps and patellar tendons are intact. Tiny suprapatellar effusion. Hypertrophic patella. Advanced chondromalacia crockett la grade 4 with subchondral edema. This is worse involving the lateral patellar facet. Medial and lat eral patellar retinaculum appear intact. Normal popliteal fossa. Increased T1 and T2 signal involving the ACL compatible with mucoid degeneration. Suspect additional small intrasubstance tear involving the mid ACL. Fibers appear intact. PCL is intact. Chronic thinning of the medial and lateral meniscus. Focal cartilage defect involving the lateral fem oral condyle and abutting tibial plateau measuring 5 mm. Medial and lateral collateral ligaments are intact. IMPRESSION: 1. Mucoid degeneration involving the ACL with suspected small longitudinal intrasubstance partial te ar. Fibers appear intact. 2. Normal PCL. 3. 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 4. Full-thickness cartilage defect involving the lateral femoral condyle and adjacent tibial plateau measuring 5 mm. 5. Chronic thinning of the medial and lateral meniscus. No acute appearing meniscal tears. 6. Medial and lateral collateral ligaments appear intact. Outbridge grading: grade IV: full-thickness cartilage loss with underlying bone reactive changes
== END 2023-04-10 15:45 | disposition home or self-care (01) ==
LOC: RAD 15:46
PROVIDERS: PCP Family Medicine; Visit Provider Specialist
DX: M25.562 Pain in left knee (principal); M23.8X2 Other internal derangements of left knee; M22.42 Chondromalacia patellae, left knee; G90.3 Multi-system degeneration of the autonomic nervous system; M81.0 Age-related osteoporosis without current pathological fracture; R41.3 Other amnesia
CPT/HCPCS: 73721; 96116; 99214

== ENCOUNTER 2023-04-14 08:25 | Outpatient (CLI) | payer MEDICARE, OTHER, SELFPAY ==
--- NOTE | 2023-04-14 08:45 | NM_ITS ---
WS: [id number] THREE-PHASE BONE SCAN HISTORY: left knee pain and hip COMPARISON: Prior LEFT knee radiograph 03/15/2023. Patient is is injected with 27.0 mCi Tc99m HDP intravenously. Immediate angiographic phase imaging is performed over the area of concern. Static blood pool imaging also performed. Two-hour whole-body sc intigrams performed in anterior and posterior projections. Additional large field of view imaging sub mitted as necessary. Normal angiographic phase imaging and blood pool phase imaging centered over the knees to include the hips. 2-hour delayed imaging demonstrates a very minimal uptake involving the tibial plateaus and the femor al condyles of each knee. There is very slightly greater uptake involving the LEFT tibial plateau. Th ere is very slight increased uptake involving the LEFT femoral prashant through the diaphysis. No increase d uptake at the tip of the prashant. Additional very slight increased uptake in the posterior LEFT ribs. 3 consecutive ribs contain mild i ncreased activity suggesting these are healing or remote healed fractures. RIGHT SC joint arthritis. Mild degenerative changes at the carpal metacarpal joints. Normal soft tissue uptake. IMPRESSION: 1. No evidence for osteomyelitis or cellulitis. 2. Very mild increased uptake involving the tibial plateaus of each knee but greatest on the LEFT. Th is is seen only on the delayed imaging therefore likely related to osteoarthritis. 3. Very minimal increased uptake involving the surface of the LEFT intramedullary femoral prashant. This m ay be normal postoperative changes with the prashant was placed within the last year. Cannot exclude a sma ll amount of loosening. Continued radiographic follow-up.
== END 2023-04-14 08:26 | disposition home or self-care (01) ==
LOC: RAD 08:26
PROVIDERS: PCP Family Medicine; Visit Provider Specialist
DX: M25.562 Pain in left knee (principal); M25.552 Pain in left hip
CPT/HCPCS: 78315; A9561

== ENCOUNTER → 2023-04-19 13:39 | Outpatient (BNVA) | payer MEDICARE, OTHER, SELFPAY | PROVIDERS: PCP Family Medicine; Visit Provider Specialist | DX: M79.605 Pain in left leg (principal); Z09 Encounter for follow-up examination after completed treatment for conditions other than malignant neoplasm | CPT/HCPCS: 99214 ==

== ENCOUNTER 2023-04-27 12:56 | Oncology outpatient (recurring) (ONCR) | payer MEDICARE, OTHER, SELFPAY ==
[2023-04-27 13:44] VITALS: BP 107/61; PULSE 65; TEMP 36.1; O2SAT 98
[2023-04-27] MEDS: romosozumab-aqqg 210 mg/2.34 mL syr SUBCUT (13:50)
== END 2023-04-29 23:59 | disposition home or self-care (01) ==
PROVIDERS: PCP Family Medicine; Visit Provider Internal Medicine Rheumatology
DX: M81.0 Age-related osteoporosis without current pathological fracture (principal); Z53.9 Procedure and treatment not carried out, unspecified reason
CPT/HCPCS: 96372; J3111

== ENCOUNTER → 2023-05-17 13:41 | Outpatient (BNVA) | payer MEDICARE, OTHER, SELFPAY | PROVIDERS: PCP Family Medicine; Visit Provider Nurse Practitioner Family | DX: L57.0 Actinic keratosis (principal); L71.8 Other rosacea; Z85.820 Personal history of malignant melanoma of skin; L81.4 Other melanin hyperpigmentation; D22.5 Melanocytic nevi of trunk; Z71.89 Other specified counseling; L85.3 Xerosis cutis; L57.8 Other skin changes due to chronic exposure to nonionizing radiation; D69.2 Other nonthrombocytopenic purpura; L21.8 Other seborrheic dermatitis | CPT/HCPCS: 17000; 99214 ==

== ENCOUNTER → 2023-05-22 13:34 | Outpatient (BNVA) | payer MEDICARE, OTHER, SELFPAY | PROVIDERS: PCP Family Medicine; Referring Provider Specialist; Visit Provider Specialist | DX: G62.89 Other specified polyneuropathies (principal); M25.562 Pain in left knee; G90.3 Multi-system degeneration of the autonomic nervous system; G89.29 Other chronic pain; Z91.81 History of falling | CPT/HCPCS: 95885; 95908; 99215 ==

== ENCOUNTER 2023-05-25 12:48 | Oncology outpatient (recurring) (ONCR) | payer MEDICARE, OTHER, SELFPAY ==
[2023-05-25 13:24] VITALS: BP 108/59; PULSE 79; RESP 17; TEMP 36.5; O2SAT 97
[2023-05-25] MEDS: romosozumab-aqqg 210 mg/2.34 mL syr SUBCUT (13:42)
[2023-05-25 13:49] VITALS: BP 108/59; PULSE 79; RESP 17; TEMP 36.5; O2SAT 97
== END 2023-05-30 23:59 | disposition home or self-care (01) ==
PROVIDERS: PCP Family Medicine; Visit Provider Internal Medicine Rheumatology
DX: M81.0 Age-related osteoporosis without current pathological fracture (principal)
CPT/HCPCS: 96372; J3111

== ENCOUNTER → 2023-06-19 14:30 | Outpatient (BNVA) | payer MEDICARE, OTHER, SELFPAY | PROVIDERS: PCP Family Medicine; Visit Provider Specialist | DX: M25.562 Pain in left knee (principal); G89.29 Other chronic pain; G62.89 Other specified polyneuropathies | CPT/HCPCS: 99215 ==

== ENCOUNTER 2023-06-26 12:46 | Oncology outpatient (recurring) (ONCR) | payer MEDICARE, OTHER, SELFPAY ==
[2023-06-26 13:37] VITALS: BP 125/75; PULSE 65; RESP 18; TEMP 36.4; O2SAT 97
[2023-06-26] MEDS: romosozumab-aqqg 210 mg/2.34 mL syr SUBCUT (13:39)
== END 2023-06-29 23:59 | disposition home or self-care (01) ==
PROVIDERS: PCP Family Medicine; Visit Provider Internal Medicine Rheumatology
DX: M81.0 Age-related osteoporosis without current pathological fracture (principal)
CPT/HCPCS: 96372; J3111

== ENCOUNTER 2023-07-26 12:50 | Oncology outpatient (recurring) (ONCR) | payer MEDICARE, OTHER, SELFPAY ==
[2023-07-26 13:39] VITALS: BP 124/77; PULSE 89; RESP 18; TEMP 36.6; O2SAT 98
[2023-07-26 14:00] VITALS: BP 124/78; PULSE 74; RESP 18; TEMP 36.6; O2SAT 98
[2023-07-26] MEDS: romosozumab-aqqg 210 mg/2.34 mL syr SUBCUT (14:00)
== END 2023-07-30 23:59 | disposition home or self-care (01) ==
PROVIDERS: PCP Family Medicine; Visit Provider Internal Medicine Rheumatology
DX: M81.0 Age-related osteoporosis without current pathological fracture (principal)
CPT/HCPCS: 96372; J3111

== ENCOUNTER 2023-08-28 12:57 | Oncology outpatient (recurring) (ONCR) | payer MEDICARE, OTHER, SELFPAY ==
[2023-08-28] MEDS: romosozumab-aqqg 210 mg/2.34 mL syr SUBCUT (14:15)
[2023-08-28 14:54] LABS: Albumin Level 4.2 g/dL (3.5-5.2); Calcium 9.6 mg/dL (8.5-10.5)
[2023-08-28 15:10] LABS: 25 Hydroxy Vitamin D 42 ng/mL (30-100)
== END 2023-08-30 23:59 | disposition home or self-care (01) ==
LOC: ONCMED 12:59
PROVIDERS: PCP Family Medicine; Visit Provider Internal Medicine Rheumatology
DX: M81.0 Age-related osteoporosis without current pathological fracture (principal)
CPT/HCPCS: 36415; 82040; 82306; 82310; 82565; 96372; J3111

== ENCOUNTER 2023-09-26 12:48 | Oncology outpatient (recurring) (ONCR) | payer MEDICARE, OTHER, SELFPAY | END 2023-09-28 23:59 | disposition home or self-care (01) | LOC: ONCMED 12:49 | PROVIDERS: PCP Family Medicine; Visit Provider Internal Medicine Rheumatology | DX: Z53.9 Procedure and treatment not carried out, unspecified reason (principal) ==

== ENCOUNTER 2023-10-25 13:10 | Oncology outpatient (recurring) (ONCR) | payer MEDICARE, OTHER, SELFPAY ==
[2023-10-25 13:48] VITALS: BP 121/59; PULSE 69; RESP 14; O2SAT 91
[2023-10-25] MEDS: denosumab 60 mg SDV SUBCUT (13:50)
== END 2023-10-29 23:59 | disposition home or self-care (01) ==
PROVIDERS: PCP Family Medicine; Visit Provider Internal Medicine Rheumatology
DX: M81.0 Age-related osteoporosis without current pathological fracture (principal)
CPT/HCPCS: 96372; J0897

== ENCOUNTER 2023-11-04 12:07 | Emergency (ER) | payer MEDICARE, OTHER, SELFPAY ==
[2023-11-04 12:31] VITALS: BP 165/82; PULSE 83; RESP 16; TEMP 37; O2SAT 98; BMI 22.3
[2023-11-04 13:15] VITALS: BP 161/83; PULSE 69; RESP 18; O2SAT 95
--- NOTE | 2023-11-04 13:15 | ED_ITS ---
HPI - Abdominal Pain 2 General: Chief Complaint: Abdominal Pain Stated Complaint: lower left side pain Time Seen by Provider: 11/04/23 13:14 History of Present Illness: 78-year-old male presents to the emergen cy department complaints of left flank pain radiating around to his abdomen. He states that it woke him from his sleep this morning at approximately 4 AM. He states it was a sharp stabbing type pain that is now continued to be constant and is an 8 out of 10. He does have associated nausea.. He states he does have dark-colored urine. He states he did see a urologist many years ago for BPH but has not seen one recently. He states he does not believe he has a history of kidney stones. He denies fevers chills or night sweats. Associated Symptoms: Reports nausea Review of Systems 2 General: Reports: 10 or more systems reviewed and unremarkable except in HPI and below GI: Reports: abdominal pain and nausea : Reports: flank pain and urinary hesitancy PFSH ED 2 PFSH: Medical History BPH (benign prostatic hyperplasia) Cervical disc disorder with myelopathy of mid-cervical region GERD (gastroesophageal reflux disease) H/O fracture of pelvis High risk medication use History of colon polyps History of malignant melanoma History of nonmelanoma skin cancer History of torn meniscus of left knee (2019) Surgery Dr. Daigle History of torn meniscus of right knee Hyperlipidemia Intervertebral disc disorder with radiculopathy of lumbosacral region Lumbar disc disease Osteoporosis Osteoporosis RBBB Surgical History H/O esophagogastroduodenoscopy 09/24/2019: Gastritis and hiatal hernia History of carpal tunnel release History of colonoscopy (~2006) 09/24/2019: Sigmoid diverticulosis, 2 cm sessile polyp at the ileocecal valve History of inguinal hernia repair Right History of open reduction and internal fixation (ORIF) procedure left hip 2018 History of spinal surgery 01/2011 [facility] L3-L4 lumbar decompression Family History Mother Diabetes Myocardial infarction Father Myocardial infarction Other CAD (coronary artery disease) Denies family history of Rheumatoid arthritis Lupus Anesthesia complication Bleeding disorder Cancer Social History Smoking and tobacco/nicotine status: never used tobacco/nicotine Second hand smoke exposure: No Alcohol intake: never Substance/Drug Use: never Household members: spouse Marital status: Current occupational status: retired Physical Exam 2 Narrative: EXAM NARRATIVE: Constitutional: the patient appears well nourished and of normal development. Vital signs as documented. No acute distress at present. Alert and oriented-to person, place, time and situation. Head, eyes, ears, nose, mouth, throat: Normocephalic, atraumatic. Pupils-equal, round, reactive to light. No scleral icterus. Normal-appearing external ears. Normal appearing nasal turbinates, no drainage. No obvious oral lesions, posterior oropharynx without erythema or exudates. Neck: Supple, trachea is midline, no lymphadenopathy, no jugular venous distension, thyromegaly, or carotid bruits. Carotid upstrokes are brisk bilaterally. Lungs: clear to auscultation to all lung medina. Symmetrical rise and fall of chest, no obvious signs of increased work of breathing at present. Cardiac: Regular rate and rhythm, positive S1, S2. No murmurs, rubs or gallops that I can appreciate Abdomen: Soft, non-tender to palpation, normal active bowel sounds to all quadrants. No palpable masses, no organomegaly and abdominal bruits. Back: Positive left CVA tenderness to percussion, normal alignment, no obvious deformity. Extremities: 2+ pulses in the upper extremities that are equal bilaterally, 2+ pulses in the lower extremities that are equal bilaterally. Non-edematous. Moves all extremities well, sensation to all extremities are noted. Skin: Warm, dry, intact. Course 2 Vital Signs: Vital signs: Vital Signs Temperature 98.6 F 11/04/23 12:31 Pulse Rate 69 11/04/23 15:15 Respiratory Rate 17 11/04/23 15:15 Blood Pressure 135/79 11/04/23 15:15 Pulse Oximetry 17 L 11/04/23 15:15 Oxygen Delivery Me thod Room Air 11/04/23 15:15 MDM - Abdominal Pain Medical Decision Making Physical exam completed and documented I will obtain a CBC and CMP as well as a urinalysis for evaluation. I have provided the patient Toradol and Zofran for his pain and nausea. I have ordered a CT scan abdomen pelvis renal stone protocol for evaluation. Differential diagnosis includes diverticulitis, UTI, renal colic, renal calculi, colitis, gastroenteritis, BPH, Medical Records I reviewed the patient's medical records. Lab Data I reviewed the patient's lab results. 11/04/23 13:09 11/04/23 13:09 Labs/Radiology: Radiology Impressions Abdomen/Pelvis CT 11/04/23 13:57 IMPRESSION: 1. 5 mm left UVJ stone with hydronephrosis 2. Gallstones 3. Hiatal hernia Laboratory Results WBC 7.93 10^3/uL (3.29-11.43) 11/04/23 13:09 RBC 4.80 10^6/uL (3.85-5.65) 11/04/23 13:09 Hgb 14.80 g/dL (11.27-16.99) 11/04/23 13:09 Hct 44.6 % (37-53) 11/04/23 13:09 MCV 92.9 fl (82-101) 11/04/23 13:09 MCH 30.8 pg (27-33) 11/04/23 13:09 MCHC 33.2 g/dL (30-55) 11/04/23 13:09 RDW 13.0 % (12.1-15.1) 11/04/23 13:09 Plt Count 208 10^3/cmm (157-399) 11/04/23 13:09 MPV 10.1 fL (7.4-10.4) 11/04/23 13:09 Neut % (Auto) 70.0 % 11/04/23 13:09 Lymph % (Auto) 20.9 % 11/04/23 13:09 [place] % (Auto) 8.3 % 11/04/23 13:09 Eos % (Auto) 0.1 % 11/04/23 13:09 Baso % (Auto) 0.4 % 11/04/23 13:09 Neut # (Auto) 5.55 10^3/uL (1.8-7.7) 11/04/23 13:09 Lymph # (Auto) 1.7 10^3/uL (0.8-4.8) 11/04/23 13:09 [place] # (Auto) 0.7 10^3/uL (0.2-0.9) 11/04/23 13:09 Eos # (Auto) 0.0 10^3/uL (0.0-0.8) 11/04/23 13:09 Baso # (Auto) 0.0 10^3/uL (0.0-0.1) 11/04/23 13:09 Nucleated RBC % (auto) 0 % 11/04/23 13:09 Nucleated RBCs # 0.0 /100WBC 11/04/23 13:09 Sodium 141 mmol/L (136-145) 11/04/23 13:09 Potassium 4.9 mmol/L (3.5-5.1) 11/04/23 13:09 Chloride 104 mmol/L (98-107) 11/04/23 13:09 Carbon Dioxide 24 mmol/L (22-29) 11/04/23 13:09 Anion Gap 17.9 (5-19) 11/04/23 13:09 BUN 14 mg/dL (8-23) 11/04/23 13:09 Creatinine 1.0 mg/dL (0.7-1.2) 11/04/23 13:09 GFR Calculation Not Reportable 11/04/23 13:09 Glucose 169 mg/dL (65-115) H 11/04/23 13:09 Calculated Osmolality 296 mOsm/kg (285-295) H 11/04/23 13:09 Calcium 9.9 mg/dL (8.5-10.5) 11/04/23 13:09 Total Bilirubin 1.0 mg/dL (0.15-1.2) 11/04/23 13:09 AST 19 U/L (0-40) 11/04/23 13:09 ALT 8 U/L (0-41) 11/04/23 13:09 Alkaline Phosphatase 98 U/L (40-130) 11/04/23 13:09 Total Protein 7.1 g/dL (6.6-8.7) 11/04/23 13:09 Albumin 4.7 g/dL (3.5-5.2) 11/04/23 13:09 Globulin 2.4 g/dL (1.3-4.6) 11/04/23 13:09 Urine Color [place] (Yellow) 11/04/23 13:25 Urine Appearance Cloudy (CLEAR) A 11/04/23 13:25 Urine pH 5 (5-7) 11/04/23 13:25 Ur Specific [place] 1.025 (1.005-1.030) 11/04/23 13:25 Urine Protein 2+ (Negative) H 11/04/23 13:25 Urine Glucose (UA) Norm (Normal) 11/04/23 13:25 Urine Ketones 1+ (Negative) H 11/04/23 13:25 Urine Blood 3+ (Negative) H 11/04/23 13:25 Urine Nitrate Negative (Negative) 11/04/23 13:25 Urine Bilirubin Neg (Negative) 11/04/23 13:25 Urine Urobilinogen Norm mg/dL (Negative) 11/04/23 13:25 Ur Leukocyte Esterase Trace (Negative) H 11/04/23 13:25 Urine RBC >100 /hpf (0-2) H 11/04/23 13:25 Urine WBC 5-10 /hpf (0-5) H 11/04/23 13:25 Ur Squamous Epith Cells None /hpf (0-5) 11/04/23 13:25 Amorphous Sediment 1+ /hpf 11/04/23 13:25 Urine Bacteria 1+ /hpf (NONE) H 11/04/23 13:25 All radiology interpretation(s) finalized by discharge Discharge Plan Discharge Patient Disposition: Home Clinical Impression: Acute left flank pain, Nausea, Calculus of left kidney, Renal colic on left side Condition: Stable Prescriptions: New ondansetron HCl 4 mg tablet 4 mg PO Q6H PRN (Reason: nausea and vomiting) Qty: 14 0RF Flomax 0.4 mg capsule 0.4 mg PO DAILY Qty: 30 0RF No Action aspirin [Adult Low Dose Aspirin] 81 mg tablet,delayed release (DR/EC) 81 mg PO QAM acetaminophen [Tylenol Extra Strength] 500 mg tablet 1,000 mg PO BID PRN (Reason: Pain) ketoconazole 2 % shampoo See Rx Instructions .ROUTE .COMPLEX Rx Instructions: mL topically DIRECTED triamcinolone acetonide 0.1 % ointment 0.1 g topical DAILY PRN (Reason: Rash) metronidazole 0.75 % gel 1 applic topical DAILY PRN (Reason: Rash) meloxicam 15 mg tablet 15 mg PO DAILY PRN (Reason: Pain) Qty: 90 2RF oxycodone-acetaminophen 5-325 mg tablet 1 tab PO Q6H PRN (Reason: Pain) 30 Days Qty: 30 0RF citalopram 20 mg tablet 20 mg PO QAM Qty: 90 3RF multivitamin Tablet 1 tab PO QAM cholecalciferol (vitamin D3) 50 mcg (2,000 unit) capsule 50 mcg PO QAM trazodone 100 mg tablet 100 mg PO BEDTIME PRN (Reason: Sleep) pantoprazole 40 mg tablet,delayed release (DR/EC) 40 mg PO BID dutasteride 0.5 mg capsule 0.5 mg PO DAILY galantamine 24 mg capsule,ext rel. pellets 24 hr 24 mg PO QAM Discharge Orders: Discharge ED (Routine); Ordered 11/04/23 Ordered By: Shlomo Ruiz Referrals: Mynor Tesfaye MD [Primary Care Provider] - Discharge Diet: Usual diet Discharge Activity: Resume usual activity Patient Instructions: Abdominal Pain (ED), Opioid Safety, Pain Management Activity Restrictions/Additional Instructions: Activity Restrictions/Additional Instructions: Thank you for choosing [facility] for your healthcare needs today. Please realize that you were seen in the Emergency Department and that we are providing you with an emergency medical screening exam and this may not be a complete and all inclusive of all the testing and or medical work-up that you may need to determine your ailment or severity of your illness. It is very important that you follow-up as instructed with your Primary care provider or Specialist for additional evaluation and to discuss your medical treatment plan. You may return to the Emergency Department should you have concerns or if your condition changes or worsens in any way. Call to make a Follow-up appointment: [facility] [address] [place] [address] Dr.ive Shelby [place], [place] [address] Phone--[phone] [facility] [address] [place] [address] Coding Level of Care Code ED Fly Maker for Jane Marks
[2023-11-04 13:23] LABS: Basophils % 0.4 %; Eosinophils % 0.1 %; Hematocrit 44.6 % (37-53); Lymphocytes # 1.7 10^3/uL (0.8-4.8); Lymphocytes % 20.9 %; Mean Corpuscular HGB Conc 33.2 g/dL (30-55); Mean Corpuscular Hemoglobin 30.8 pg (27-33); Mean Corpuscular Volume 92.9 fl (82-101); Mean Platelet Volume 10.1 fL (7.4-10.4); Monocytes # 0.7 10^3/uL (0.2-0.9); Monocytes % 8.3 %; Neutrophils # 5.55 10^3/uL (1.8-7.7); Nucleated Red Blood Cells % 0 %; Platelet Count 208 10^3/cmm (157-399); White Blood Count 7.93 10^3/uL (3.29-11.43)
[2023-11-04] MEDS: ondansetron 2 mg/ML SDV 2 mL 4 MG IVP (13:41)
[2023-11-04] MEDS: ketorolac 30 mg/mL INJ 15 MG IVP (13:41)
[2023-11-04 13:44] LABS: Alanine Aminotransferase 8 U/L (0-41); Albumin Level 4.7 g/dL (3.5-5.2); Alkaline Phosphatase 98 U/L (40-130); Anion Gap 17.9 (5-19); Aspartate Amino Transferase 19 U/L (0-40); Blood Urea Nitrogen 14 mg/dL (8-23); Calcium 9.9 mg/dL (8.5-10.5); Carbon Dioxide 24 mmol/L (22-29); Chloride 104 mmol/L (98-107); Creatinine Clr Calc Pharmacy 61.8417; Globulin 2.4 g/dL (1.3-4.6); Glucose 169 mg/dL (65-115); Osmolality Calculated 296 mOsm/kg (285-295); Potassium 4.9 mmol/L (3.5-5.1); Sodium 141 mmol/L (136-145); Total Protein 7.1 g/dL (6.6-8.7)
[2023-11-04 13:51] LABS: Protein Urine 2+ (Negative); Specific Gravity, Urine 1.025 (1.005-1.030); Urine Appearance Cloudy (CLEAR); Urine Color Amber (Yellow); pH Urine 5 (5-7)
[2023-11-04 13:52] LABS: Add Urine Culture? Yes; Add Urine Microscopic? YES; Amorphous Sediment Urine 1+ /hpf; Bacteria Urine 1+ /hpf; Bilirubin Urine Neg (Negative); Blood Urine 3+ (Negative); Glucose Urine UA Norm (Normal); Ketones Urine 1+ (Negative); Leukocyte Esterase Urine Trace (Negative); Nitrate Urine Negative (Negative); RBC Urine >100 /hpf (0-2); Urobilinogen Urine Norm (Negative)
--- NOTE | 2023-11-04 13:57 | CTR_ITS ---
PROCEDURE INFORMATION: Exam: CT Abdomen And Pelvis Without Contrast Exam date and time: 11/04/2023 2:04 PM Age: 78 years old Clinical indication: Abdominal pain; Flank; Left; Additional info: Left flank michelle TECHNIQUE: Imaging protocol: Computed tomography of the abdomen and pelvis without contrast. Radiation optimization: All CT scans at this facility use at least one of these dose optimization techniques: automated exposure control; mA and/or kV adjustment per patient size (includes targeted exams where dose is matched to clinical indication); or iterative reconstruction. COMPARISON: CT abdomen pelvis w con* [id number] 10/24/2019 3:33 PM RADIATION DOSE METRICS: Total DLP (mGy-cm): 427.21 FINDINGS: Lungs: Lung bases are clear. No pleural effusion. Coronary arteries: Coronary artery calcifications are noted. Diaphragm: A hiatal hernia is noted in the lower mediastinum. Liver: Normal. No mass. Gallbladder and bile ducts: Multiple gallstones are noted in the gallbladder but the gallbladder does not appear inflamed and demonstrates normal wall thickness. Pancreas: Normal. No ductal dilation. Spleen: Normal. No splenomegaly. Adrenal glands: Normal. No mass. Kidneys and ureters: There is a 5 mm stone located in the left ureterovesical junction causing mild hydronephrosis. Stomach and bowel: Unremarkable. No obstruction. No mucosal thickening. Appendix: No evidence of appendicitis. Intraperitoneal space: Unremarkable. No free air. No significant fluid collection. Vasculature: Unremarkable. No abdominal aortic aneurysm. Lymph nodes: Unremarkable. No enlarged lymph nodes. Urinary bladder: Unremarkable as visualized. Reproductive: Unremarkable as visualized. Bones/joints: Unremarkable. No acute fracture. Soft tissues: Unremarkable. CT/CT kidney stone [id number] IMPRESSION: 1. 5 mm left UVJ stone with hydronephrosis 2. Gallstones 3. Hiatal hernia
[2023-11-04] MEDS: cefTRIAXone 1,000 MG in sodium chloride 0.9% (plus) 50 ML 100 MG IV (14:29)
[2023-11-04 14:30] VITALS: BP 129/66; PULSE 67; RESP 16; O2SAT 99
[2023-11-04 15:15] VITALS: BP 135/79; PULSE 69; RESP 17; O2SAT 17
[2023-11-04] MEDS: tamsulosin 0.4 mg Capsule 0.400000000000000022 MG PO (15:15)
== END 2023-11-04 15:35 | disposition home or self-care (01) ==
PROVIDERS: Physician Assistant; Emergency Provider Internal Medicine; PCP Family Medicine
DX: N13.2 Hydronephrosis with renal and ureteral calculous obstruction (principal); Z79.82 Long term (current) use of aspirin; E78.5 Hyperlipidemia, unspecified; Z87.442 Personal history of urinary calculi
CPT/HCPCS: 36415; 74176; 80053; 81001; 85025; 87086; 96365; 96375; 99285; J0696; J1885; J2405

== ENCOUNTER → 2023-11-16 10:20 | Outpatient (BNVA) | payer MEDICARE, OTHER, SELFPAY | PROVIDERS: PCP Family Medicine; Visit Provider Nurse Practitioner Family | DX: L57.0 Actinic keratosis (principal); L71.8 Other rosacea; Z85.820 Personal history of malignant melanoma of skin; L81.4 Other melanin hyperpigmentation; D22.5 Melanocytic nevi of trunk; L85.3 Xerosis cutis; L57.8 Other skin changes due to chronic exposure to nonionizing radiation; D69.2 Other nonthrombocytopenic purpura; L21.8 Other seborrheic dermatitis | CPT/HCPCS: 17000; 99214 ==

== ENCOUNTER 2024-03-15 12:47 | Outpatient (CLI) | payer MEDICARE, OTHER, SELFPAY ==
--- NOTE | 2024-03-15 13:00 | XR_ITS ---
WS: [id number] DEXA (DUAL ENERGY X-RAY ABSORPTIOMETRY) Bone mineral density was performed using a DSI MET-TECH machine. HISTORY: M81.0 - Age-related osteoporosis without current patholog... COMPARISON: 03/14/2022 Lumbar spine BMD (L1-L4): 0.979 g/cm2 T score: -2.0 Z score: -1.0 Total hip BMD: Right: 0.472. T score: -4.4 Z score: -3.0 Left forearm BMD: 0.748 g/cm2. T score: -2.4 Z score: -1.2 10 year probability of a major osteoporotic fracture is 29.5%. Compared to the prior study from 03/14/2022. Lumbar spine bone mineral density has decreased by 0.2%. RIGHT hip bone mineral density has decreased by 11.4%. XR/XR DEXA axial skeleton* [id number] IMPRESSION: 1. OSTEOPOROSIS significant osteoporosis in the RIGHT hip. Osteopenia within t he lumbar spine and LEFT forearm. 2. There has been a significant decrease in bone mineral density within the RI GHT hip since the prior study. No change within the lumbar spine.
== END 2024-03-15 12:48 | disposition home or self-care (01) ==
LOC: RAD 12:47
PROVIDERS: PCP Family Medicine; Visit Provider Internal Medicine Rheumatology
DX: M81.0 Age-related osteoporosis without current pathological fracture (principal); M85.88 Other specified disorders of bone density and structure, other site
CPT/HCPCS: 77080

== ENCOUNTER → 2024-03-26 13:25 | Outpatient (BNVA) | payer MEDICARE, OTHER, SELFPAY | PROVIDERS: PCP Family Medicine; Visit Provider Internal Medicine Rheumatology | DX: M81.0 Age-related osteoporosis without current pathological fracture (principal); Z87.310 Personal history of (healed) osteoporosis fracture; Z79.899 Other long term (current) drug therapy; R29.898 Other symptoms and signs involving the musculoskeletal system | CPT/HCPCS: 36415; 80076; 82306; 82310; 82565; 85025; 85651; 86140; 99214 ==

== ENCOUNTER → 2024-04-10 09:23 | Outpatient (BNVA) | payer MEDICARE, OTHER, SELFPAY | PROVIDERS: Visit Provider Specialist | DX: R25.9 Unspecified abnormal involuntary movements (principal); G90.3 Multi-system degeneration of the autonomic nervous system; R41.3 Other amnesia | CPT/HCPCS: 99215 ==

== ENCOUNTER → 2024-05-30 14:02 | Outpatient (BNVA) | payer MEDICARE, OTHER, SELFPAY | PROVIDERS: Visit Provider Dermatology | DX: L57.0 Actinic keratosis (principal); L81.4 Other melanin hyperpigmentation; L57.8 Other skin changes due to chronic exposure to nonionizing radiation; L82.1 Other seborrheic keratosis; D22.5 Melanocytic nevi of trunk | CPT/HCPCS: 17000; 99213 ==

== ENCOUNTER 2024-11-09 12:14 | Emergency (ER) | payer MEDICARE, OTHER, SELFPAY ==
[2024-11-09 12:18] VITALS: BP 156/85; PULSE 84; RESP 18; TEMP 36.6; O2SAT 99; BMI 21.4
--- NOTE | 2024-11-09 12:27 | XRR_ITS ---
PROCEDURE INFORMATION: Exam: XR Left Knee Exam date and time: 11/09/2024 12:39 PM Age: 79 years old Clinical indication: Injury or trauma; Blunt trauma; Injury date: 11/06/2024; Injury details: PT here via pov with C/O left knee pain. PT states he twisted his left knee when he fell. PT reports left knee problems x 5 years. PT reports a fall Monday, 3 days ago. HX of torn meniscus left knee. TECHNIQUE: Imaging protocol: Radiologic exam of the left knee. Views: 3 views. COMPARISON: MR knee LT wo con* [id number] 04/10/2023 4:19 PM FINDINGS: Bones/joints: Intramedullary prashant in the distal femur. There is no fracture or joint dislocation. Soft tissues: Normal. Vasculature: Calcified atherosclerotic changes are seen. XR/XR knee LT 3V* [id number] IMPRESSION: No acute findings.
--- NOTE | 2024-11-09 12:34 | W.ED.EXTPRO ---
HPI - Extremity Problem General: Chief complaint: Extremity Injury, Lower Stated complaint: fall Time Seen by Provider: 11/09/24 12:26 History of Present Illness: 79-year-old man who presents the emergency room with left knee pain. Patient had a fall recently. Says he twisted his left knee. Apparently has been having knee pains for 5 years. No head injury. No loss of consciousness. No anticoagulation. says he does not walk normally. It is very unclear what happened and how he fell. Related Data Home Medications ?Medication ?Instructions ?Recorded ?Confirmed aspirin 81 mg tablet,delayed 81 mg PO QAM 08/21/19 11/09/24 release (Adult Low Dose Aspirin) acetaminophen 500 mg tablet 1,000 mg PO BID PRN Pain 04/04/23 11/09/24 (Tylenol Extra Strength) galantamine 24 mg 24 hr 24 mg PO QAM 11/09/24 11/09/24 capsule,extended release Previous Rx's ?Medication ?Instructions ?Recorded lorazepam 1 mg tablet (Ativan) 1 mg PO DAILY #90 tabs 04/16/24 pantoprazole 40 mg tablet,delayed See Rx Instructions .Route 08/22/24 release .COMPLEX #180 tabs citalopram 20 mg tablet 20 mg PO QAM #90 tabs 09/09/24 dutasteride 0.5 mg capsule See Rx Instructions .Route 09/12/24 .COMPLEX #90 caps trazodone 100 mg tablet See Rx Instructions .Route 09/19/24 .COMPLEX #90 tabs Allergies Allergy/AdvReac Type Severity Reaction Status Date / Time No Known Allergies Allergy Verified 04/10/24 09:27 Review of Systems Narrative: Constitutional symptoms: Negative except as documented in HPI. Skin symptoms: Negative except as documented in HPI. Eye symptoms: Negative except as documented in HPI. ENMT symptoms: Negative except as documented in HPI. Respiratory symptoms: Negative except as documented in HPI. Cardiovascular symptoms: Negative except as documented in HPI. Gastrointestinal symptoms: Negative except as documented in HPI. Genitourinary symptoms: Negative except as documented in HPI. Musculoskeletal symptoms: Negative except as documented in HPI. Neurologic symptoms: Negative except as documented in HPI. Psychiatric symptoms: Negative except as documented in HPI. Endocrine symptoms: Negative except as documented in HPI. 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 Daigle History of torn meniscus of right knee BPH (benign prostatic hyperplasia) Hyperlipidemia Surgical History H/O esophagogastroduodenoscopy 09/24/2019: Gastritis and hiatal hernia History of inguinal hernia repair Right History of colonoscopy (~2006) 09/24/2019: Sigmoid diverticulosis, 2 cm sessile polyp at the ileocecal valve History of carpal tunnel release History of spinal surgery 01/2011 [facility] L3-L4 lumbar decompression History of open reduction and internal fixation (ORIF) procedure left hip 2017 Family History Mother Diabetes Myocardial infarction Father Myocardial infarction Other CAD (coronary artery disease) Denies family history of Rheumatoid arthritis Lupus Anesthesia complication Bleeding disorder Cancer Social History Smoking and tobacco/nicotine status: former use of tobacco/nicotine Second hand smoke exposure: No Alcohol intake: never Substance/Drug Use: never Household members: spouse Marital status: Current occupational status: retired Physical Exam Narrative: EXAM NARRATIVE: General: Alert, no acute distress. Skin: warm and dry Head: Normocephalic Neck: Trachea midline Eye: Extraocular movements are intact. Ears, nose, mouth and throat: Oral mucosa moist Respiratory: Respirations are non-labored Musculoskeletal: Normal ROM Neurological: Alert and oriented, No focal neurological deficit observed. Psychiatric: Cooperative, appropriate mood & affect. Course Vital Signs: Vital signs: Vital Signs Temperature 97.9 F 11/09/24 12:18 Pulse Rate 84 11/09/24 12:18 Respiratory Rate 18 11/09/24 12:18 Blood Pressure 156/85 11/09/24 12:18 Pulse Oximetry 99 11/09/24 12:18 Oxygen Delivery Me thod Room Air 11/09/24 12:18 MDM - Extremity (Nontraumatic) Medical Decision Making X-ray of the left knee: No acute findings. This was reviewed and interpreted by myself the emergency room physician. I also reviewed the radiology report. I attempted to add a x-ray of the left hip to evaluate for acute hip injury that often has referred knee pain. Patient and completely refused. I discussed that he has risk of hip fracture and they are not concerned. They say they were just here to get pictures and they just want to have those sent to their primary doctor. Assessment and plan: Knee injury - Discharged home - Discussed plan with patient. Answered any questions. Lab Data Radiology Impressions Knee X-Ray 11/09/24 12:27 IMPRESSION: No acute findings. All radiology interpretation(s) finalized by discharge Discharge Plan Discharge Patient Disposition: Home Clinical Impression: Knee pain, left Qualifiers: Chronicity: chronic Qualified Code(s): M25.562 - Pain in left knee Condition: Stable Prescriptions: No Action aspirin [Adult Low Dose Aspirin] 81 mg tablet,delayed release (DR/EC) 81 mg PO QAM acetaminophen [Tylenol Extra Strength] 500 mg tablet 1,000 mg PO BID PRN (Reason: Pain) lorazepam [Ativan] 1 mg tablet 1 mg PO DAILY Qty: 90 5RF pantoprazole 40 mg tablet,delayed release (DR/EC) See Rx Instructions .ROUTE .COMPLEX Qty: 180 2RF Dose Instruction: Take 1 tablet by mouth twice daily Rx Instructions: Take 1 tablet by mouth twice daily citalopram 20 mg tablet 20 mg PO QAM Qty: 90 3RF dutasteride 0.5 mg capsule See Rx Instructions .ROUTE .COMPLEX Qty: 90 2RF Dose Instruction: Take 1 capsule by mouth once daily Rx Instructions: Take 1 capsule by mouth once daily trazodone 100 mg tablet See Rx Instructions .ROUTE .COMPLEX Qty: 90 2RF Dose Instruction: TAKE 1 TABLET BY MOUTH ONCE DAILY AT BEDTIME NEEDED FOR INSOMNIA Rx Instructions: TAKE 1 TABLET BY MOUTH ONCE DAILY AT BEDTIME NEEDED FOR INSOMNIA galantamine 24 mg capsule,ext rel. pellets 24 hr 24 mg PO QAM Rx Instructions: TAKE 1 CAPSULE EVERY MORNING WITH BREAKFAST Discharge Orders: Discharge ED (Routine); Ordered 11/09/24 Ordered By: Maty Gonzales Referrals: Mynor Tesfaye MD [Primary Care Provider] - Discharge Diet: Usual diet Discharge Activity: Increase activity as tolerated Patient Instructions: Opioid Safety, Pain Management Activity Restrictions/Additional Instructions: Thank you for choosing [facility] for your healthcare needs today. Please realize this is an emergency room and that we are providing you with a medical screening exam and this may not be complete and all inclusive of all the testing and or work up that you may need to determine your ailment or severity of your illness. You have been screened and evaluated and felt safe for discharge. Health conditions do change or evolve sometimes and as such it is important that you follow up with your Primary Doctor to be re checked, 3-5 days is a general good time frame for follow up. You are always welcome to return to the ED for re assessment if your symptoms are worsening or you have new concerns Print Language: Nepali Coding Level of Care Code ED [employer] Button Maker for Jane Marks
[2024-11-09 14:24] VITALS: BP 170/79; PULSE 60; O2SAT 98
== END 2024-11-09 14:24 | disposition home or self-care (01) ==
PROVIDERS: Emergency Provider Emergency Medicine; PCP Family Medicine
DX: M25.562 Pain in left knee (principal); Z79.82 Long term (current) use of aspirin; Z87.891 Personal history of nicotine dependence; E78.5 Hyperlipidemia, unspecified; Z85.828 Personal history of other malignant neoplasm of skin
CPT/HCPCS: 73562; 99283

== ENCOUNTER → 2024-11-28 13:51 | Outpatient (BNVA) | payer MEDICARE, OTHER, SELFPAY | PROVIDERS: PCP Family Medicine; Visit Provider Nurse Practitioner Family | DX: L71.8 Other rosacea (principal); D18.01 Hemangioma of skin and subcutaneous tissue; D69.2 Other nonthrombocytopenic purpura; L57.8 Other skin changes due to chronic exposure to nonionizing radiation; X32.XXXA Exposure to sunlight, initial encounter; L81.4 Other melanin hyperpigmentation; L82.1 Other seborrheic keratosis; Z08 Encounter for follow-up examination after completed treatment for malignant neoplasm; Z85.820 Personal history of malignant melanoma of skin; L57.0 Actinic keratosis | CPT/HCPCS: 17000; 99214 ==

== ENCOUNTER 2025-02-11 04:58 | Emergency (ER) | payer MEDICARE, OTHER, SELFPAY ==
[2025-02-11] VITALS (8 sets, daily range): BP systolic 127–172; BP diastolic 62–89; PULSE 54–76; RESP 16–17; TEMP 36.4; O2SAT 94–99; BMI 26.4
--- NOTE | 2025-02-11 05:05 | W.ED.AMS ---
Documented by User: Maty Gonzales MD 02/11/25 05:40 HPI - Altered Mental Status General: Chief Complaint: Altered Mental Status Stated Complaint: FALL Time Seen by Provider: 02/11/25 05:04 History of Present Illness: 79-year-old man with a history of GERD, dementia and BPH who presents emergency room with worsening confusion and agitation. EMS reports that told him he has been more aggressive towards her. He is alert but slightly confused on presentation. He gives his cell security number instead of his birthday. Related Data Home Medications ?Medication ?Instructions ?Recorded ?Confirmed acetaminophen 500 mg tablet 1,000 mg PO BID PRN Pain 04/04/23 02/11/25 (Tylenol Extra Strength) galantamine 24 mg 24 hr 24 mg PO QAM 11/09/24 02/11/25 capsule,extended release Previous Rx's ?Medication ?Instructions ?Recorded pantoprazole 40 mg tablet,delayed See Rx Instructions .Route 08/22/24 release .COMPLEX #180 tabs citalopram 20 mg tablet 20 mg PO QAM #90 tabs 09/09/24 dutasteride 0.5 mg capsule See Rx Instructions .Route 09/12/24 .COMPLEX #90 caps trazodone 100 mg tablet See Rx Instructions .Route 09/19/24 .COMPLEX #90 tabs lorazepam 1 mg tablet (Ativan) 1 mg PO DAILY #90 tabs 11/18/24 Allergies Allergy/AdvReac Type Severity Reaction Status Date / Time No Known Allergies Allergy Verified 04/10/24 09:27 Review of Systems Narrative: Constitutional symptoms: Negative except as documented in HPI. Skin symptoms: Negative except as documented in HPI. Eye symptoms: Negative except as documented in HPI. ENMT symptoms: Negative except as documented in HPI. Respiratory symptoms: Negative except as documented in HPI. Cardiovascular symptoms: Negative except as documented in HPI. Gastrointestinal symptoms: Negative except as documented in HPI. Genitourinary symptoms: Negative except as documented in HPI. Musculoskeletal symptoms: Negative except as documented in HPI. Neurologic symptoms: Negative except as documented in HPI. Psychiatric symptoms: Negative except as documented in HPI. Endocrine symptoms: Negative except as documented in HPI. 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 Daigle History of torn meniscus of right knee BPH (benign prostatic hyperplasia) Hyperlipidemia Surgical History H/O esophagogastroduodenoscopy 09/24/2019: Gastritis and hiatal hernia History of inguinal hernia repair Right History of colonoscopy (~2006) 09/24/2019: Sigmoid diverticulosis, 2 cm sessile polyp at the ileocecal valve History of carpal tunnel release History of spinal surgery 01/2011 [facility] L3-L4 lumbar decompression History of open reduction and internal fixation (ORIF) procedure left hip 2018 Family History Mother Diabetes Myocardial infarction Father Myocardial infarction Other CAD (coronary artery disease) Denies family history of Rheumatoid arthritis Lupus Anesthesia complication Bleeding disorder Cancer Social History Smoking and tobacco/nicotine status: former use of tobacco/nicotine Second hand smoke exposure: No Alcohol intake: never Substance/Drug Use: never Household members: spouse Marital status: Current occupational status: retired Physical Exam Narrative: General: Alert, no acute distress. Skin: Warm, dry. Head: Normocephalic, atraumatic. Neck: Supple, trachea midline. Eye: Extraocular movements are intact. Ears, nose, mouth and throat: mucosa moist. Cardiovascular: Regular, Normal peripheral perfusion. Respiratory: Lungs are clear to auscultation, respirations are non-labored, breath sounds are equal, Symmetrical chest wall expansion. Gastrointestinal: Soft, Nontender, Non distended Musculoskeletal: Normal ROM, no deformity. Neurological: Alert, pleasantly confused oriented to place and himself, No focal neurological deficit observed. Psychiatric: Cooperative, appropriate mood & affect. Course Vital Signs: Vital signs: Vital Signs Temperature 97.6 F 02/11/25 04:59 Pulse Rate 67 02/12/25 15:30 Respiratory Rate 16 02/12/25 04:00 Blood Pressure 134/72 02/12/25 15:30 Pulse Oximetry 96 02/12/25 15:30 Oxygen Delivery Me thod Room Air 02/12/25 04:00 MDM - Altered Mental Status Medical Decision Making Medical decision making: Differential diagnosis including but not limited to and based on the above HPI, review of systems and physical exam: In this patient with altered mental status: Stroke. Hypoglycemia. Metabolic encephalopathy. Infections such as pneumonia, urinary tract infection, Covid-19, Influenza. Electrolyte abnormalities such as hypernatremia. Renal failure / uremia. Hepatic encephalopathy. Hypoxemia. Hypercapnic respiratory failure. Psychosis. Drug or alcohol intoxication. Medication overdose. Orders placed to evaluate differential diagnosis based on the above differential, HPI and physical exam Chest x-ray: Lungs appear hyperexpanded but I do not see any focal infiltrates. Some chronic calcified granulomas. Films were interpreted by myself the emergency room provider and pending final radiology review. EKG: Time 529. Rate 67. Normal sinus rhythm, No ST-T changes, no ectopy, first degree AV Block, EP Interpretation. This was reviewed and interpreted by myself the ER physician at 535. Patient care transitioned to Dr. Mancera at shift change. Lab review: No leukocytosis. No anemia. No renal failure. Urinalysis does show some concentration which might indicate some dehydration. Normal saline bolus was given. Given no signs of infection on x-ray or urinalysis have added [facility] psych workup. Patient care transitioned to Dr. Mancera at shift change. Lab Data 02/11/25 04:45 02/11/25 04:45 Radiology Impressions Chest X-Ray 02/11/25 05:07 IMPRESSION: Moderate-sized hiatal hernia. No evidence of acute pulmonary process. Head CT 02/11/25 05:41 IMPRESSION: Mild small vessel disease. No evidence of acute intracranial process. Laboratory Results WBC 5.45 10^3/uL (3.29-11.43) 02/11/25 04:45 RBC 4.20 10^6/uL (3.85-5.65) 02/11/25 04:45 Hgb 13.20 g/dL (11.27-16.99) 02/11/25 04:45 Hct 38.4 % (37-53) 02/11/25 04:45 MCV 91.4 fl (82-101) 02/11/25 04:45 MCH 31.4 pg (27-33) 02/11/25 04:45 MCHC 34.4 g/dL (30-55) 02/11/25 04:45 RDW 12.3 % (12.1-15.1) 02/11/25 04:45 Plt Count 173 10^3/cmm (157-399) 02/11/25 04:45 MPV 10.5 fL (7.4-10.4) H 02/11/25 04:45 Neut % (Auto) 55.2 % 02/11/25 04:45 Lymph % (Auto) 32.8 % 02/11/25 04:45 [place] % (Auto) 10.1 % 02/11/25 04:45 Eos % (Auto) 1.1 % 02/11/25 04:45 Baso % (Auto) 0.6 % 02/11/25 04:45 Neut # (Auto) 3.01 10^3/uL (1.8-7.7) 02/11/25 04:45 Lymph # (Auto) 1.8 10^3/uL (0.8-4.8) 02/11/25 04:45 [place] # (Auto) 0.6 10^3/uL (0.2-0.9) 02/11/25 04:45 Eos # (Auto) 0.1 10^3/uL (0.0-0.8) 02/11/25 04:45 Baso # (Auto) 0.0 10^3/uL (0.0-0.1) 02/11/25 04:45 Nucleated RBC % (auto) 0 % 02/11/25 04:45 Nucleated RBCs # 0.0 /100WBC 02/11/25 04:45 Sodium 142 mmol/L (136-145) 02/11/25 04:45 Potassium 3.8 mmol/L (3.5-5.1) 02/11/25 04:45 Chloride 105 mmol/L (98-107) 02/11/25 04:45 Carbon Dioxide 24 mmol/L (22-29) 02/11/25 04:45 Anion Gap 16.8 (5-19) 02/11/25 04:45 BUN 13 mg/dL (8-23) 02/11/25 04:45 Creatinine 0.8 mg/dL (0.7-1.2) 02/11/25 04:45 GFR Calculation Not Reportable 02/11/25 04:45 Glucose 87 mg/dL (65-115) 02/11/25 04:45 Calculated Osmolality 293 mOsm/kg (285-295) 02/11/25 04:45 Lactic Acid 1.7 mmol/L (0.5-2.2) 02/11/25 04:45 Calcium 9.7 mg/dL (8.5-10.5) 02/11/25 04:45 Total Bilirubin 0.7 mg/dL (0.15-1.2) 02/11/25 04:45 AST 18 U/L (0-40) 02/11/25 04:45 ALT < 5 U/L (0-41) 02/11/25 04:45 Alkaline Phosphatase 71 U/L (40-130) 02/11/25 04:45 Troponin T Baseline 37 ng/L (0-15) H 02/11/25 04:45 Troponin T 120 Minute 38.85 ng/L (0-15) H 02/11/25 06:32 Delta Troponin T 1.85 ABS# (0-10) 02/11/25 06:32 Troponin T Hi Sens 6Hr 40.78 ng/L (0-15) H 02/11/25 10:41 Troponin T Hi Sens 6Hr Delta 3.78 ng/L (0-12) 02/11/25 10:41 Total Protein 6.3 g/dL (6.6-8.7) L 02/11/25 04:45 Albumin 4.1 g/dL (3.5-5.2) 02/11/25 04:45 Globulin 2.2 g/dL (1.3-4.6) 02/11/25 04:45 TSH 1.61 uIU/mL (0.27-4.20) 02/11/25 04:45 Free T4 1.33 ng/dL (0.82-1.77) 02/11/25 04:45 Free T3 2.8 PG/ML (2.0-4.4) 02/11/25 04:45 Urine Color Yellow (Yellow) 02/11/25 05:23 Urine Appearance Clear (CLEAR) 02/11/25 05:23 Urine pH 5.5 (5-7) 02/11/25 05:23 Ur Specific [place] 1.023 (1.005-1.030) 02/11/25 05:23 Urine Protein Negative (Negative) 02/11/25 05:23 Urine Glucose (UA) Negative (Normal) 02/11/25 05:23 Urine Ketones Trace (Negative) 02/11/25 05:23 Urine Blood Negative (Negative) 02/11/25 05:23 Urine Nitrate Negative (Negative) 02/11/25 05:23 Urine Bilirubin Negative (Negative) 02/11/25 05:23 Urine Urobilinogen 1.0 mg/dL (Negative) 02/11/25 05:23 Ur Leukocyte Esterase Negative (Negative) 02/11/25 05:23 Urine RBC 0-2 /hpf (0-2) 02/11/25 05:23 Urine WBC 0-5 /hpf (0-5) 02/11/25 05:23 Ur Squamous Epith Cells 0-5 /hpf (0-5) 02/11/25 05:23 Amorphous Sediment Not Reportable 02/11/25 05:23 Urine Bacteria None seen /hpf (NONE) 02/11/25 05:23 Hyaline Casts 0-4 /lpf H 02/11/25 05:23 Salicylates < 0.3 mg/dL (3-10) L 02/11/25 04:45 Urine Opiates Screen Negative ng/mL (Negative) 02/11/25 05:23 Acetaminophen < 5.0 ug/mL (10-30) L 02/11/25 04:45 Ur Barbiturates Screen Negative ng/mL (Negative) 02/11/25 05:23 Ur Phencyclidine Scrn Negative ng/mL (Negative) 02/11/25 05:23 Ur Amphetamines Screen Negative ng/mL (Negative) 02/11/25 05:23 U Benzodiazepines Scrn Positive ng/mL (Negative) H 02/11/25 05:23 Urine Cocaine Screen Negative ng/mL (Negative) 02/11/25 05:23 U Marijuana (THC) Screen Negative ng/mL (Negative) 02/11/25 05:23 Ethyl Alcohol < 10 mg/dL (0-10) 02/11/25 04:45 Influenza A (PCR) Negative (Negative) 02/11/25 06:10 Influenza Type B (PCR) Negative (Negative) 02/11/25 06:10 RSV (PCR) Negative (Negative) 02/11/25 06:10 SARS-CoV-2 (PCR) Negative (Negative) 02/11/25 06:10 Discharge Plan Discharge Patient Disposition: er Psychiatric Hosp Clinical Impression: Lewy body dementia with behavioral disturbance, Parkinsonian features Condition: Stable Referrals: Mynor Tesfaye MD [Primary Care Provider, Family Practice] Patient Instructions: Altered Mental Status (ED) Print Language: Eritrean Sign Out Sign Out Data: Patient Sign Out occurred on 02/11/25 at 07:08. Patient's care was discussed, and care was transferred from Maty Gonzales MD to Serge Mancera DO. Coding Level of Care Code ED Engine Lathe Operator for Chg Fwd Documented by User: Serge Mancera DO 02/13/25 05:06 HPI - Altered Mental Status General: Chief Complaint: Altered Mental Status Stated Complaint: FALL Time Seen by Provider: 02/11/25 05:04 Related Data Home Medications ?Medication ?Instructions ?Recorded ?Confirmed acetaminophen 500 mg tablet 1,000 mg PO BID PRN Pain 04/04/23 02/11/25 (Tylenol Extra Strength) galantamine 24 mg 24 hr 24 mg PO QAM 11/09/24 02/11/25 capsule,extended release Previous Rx's ?Medication ?Instructions ?Recorded pantoprazole 40 mg tablet,delayed See Rx Instructions .Route 08/22/24 release .COMPLEX #180 tabs citalopram 20 mg tablet 20 mg PO QAM #90 tabs 09/09/24 dutasteride 0.5 mg capsule See Rx Instructions .Route 09/12/24 .COMPLEX #90 caps trazodone 100 mg tablet See Rx Instructions .Route 09/19/24 .COMPLEX #90 tabs lorazepam 1 mg tablet (Ativan) 1 mg PO DAILY #90 tabs 11/18/24 Allergies Allergy/AdvReac Type Severity Reaction Status Date / Time No Known Allergies Allergy Verified 04/10/24 09:27 Review of Systems General: Reports: ROS unobtainable due to mental status PFSH ED PFSH: Medical History History of nonmelanoma skin cancer High risk medication use Osteoporosis RBBB History of malignant melanoma Osteoporosis H/O fracture of pelvis Lumbar disc disease 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 Daigle History of torn meniscus of right knee BPH (benign prostatic hyperplasia) Hyperlipidemia Surgical History H/O esophagogastroduodenoscopy 09/24/2019: Gastritis and hiatal hernia History of inguinal hernia repair Right History of colonoscopy (~2006) 09/24/2019: Sigmoid diverticulosis, 2 cm sessile polyp at the ileocecal valve History of carpal tunnel release History of spinal surgery 01/2011 [facility] L3-L4 lumbar decompression History of open reduction and internal fixation (ORIF) procedure left hip 2018 Family History Mother Diabetes Myocardial infarction Father Myocardial infarction Other CAD (coronary artery disease) Denies family history of Rheumatoid arthritis Lupus Anesthesia complication Bleeding disorder Cancer Social History Smoking and tobacco/nicotine status: former use of tobacco/nicotine Second hand smoke exposure: No Alcohol intake: never Substance/Drug Use: never Household members: spouse Marital status: Current occupational status: retired Course Vital Signs: Vital signs: Vital Signs Temperature 97.6 F 02/11/25 04:59 Pulse Rate 67 02/12/25 15:30 Respiratory Rate 16 02/12/25 04:00 Blood Pressure 134/72 02/12/25 15:30 Pulse Oximetry 96 02/12/25 15:30 Oxygen Delivery Me thod Room Air 02/12/25 04:00 MDM - Altered Mental Status Medical Decision Making Medical decision making: Differential diagnosis including but not limited to and based on the above HPI, review of systems and physical exam: In this patient with altered mental status: Stroke. Hypoglycemia. Metabolic encephalopathy. Infections such as pneumonia, urinary tract infection, Covid-19, Influenza. Electrolyte abnormalities such as hypernatremia. Renal failure / uremia. Hepatic encephalopathy. Hypoxemia. Hypercapnic respiratory failure. Psychosis. Drug or alcohol intoxication. Medication overdose. Orders placed to evaluate differential diagnosis based on the above differential, HPI and physical exam Chest x-ray: Lungs appear hyperexpanded but I do not see any focal infiltrates. Some chronic calcified granulomas. Films were interpreted by myself the emergency room provider and pending final radiology review. EKG: Time 529. Rate 67. Normal sinus rhythm, No ST-T changes, no ectopy, first degree AV Block, EP Interpretation. This was reviewed and interpreted by myself the ER physician at 535. Patient care transitioned to Dr. Mancera at shift change. Lab review: No leukocytosis. No anemia. No renal failure. Urinalysis does show some concentration which might indicate some dehydration. Normal saline bolus was given. Given no signs of infection on x-ray or urinalysis have added [facility] psych workup. Patient care transitioned to Dr. Mancera at shift change. Care assumed at change of shift. at the bedside state patient does have dementia and has recently been hallucinating. No significant medical findings. Patient test positive for benzodiazepines this is consistent with his prescribed medications his chemistries and CBC his chest x-ray and CT head are all unremarkable for acute findings. Staff looking for placement in [facility]. Patient was excepted at [facility] transfer via ambulance. Medical Records I reviewed the patient's medical records. Lab Data I reviewed the patient's lab results. 02/11/25 04:45 02/11/25 04:45 Radiology Impressions Chest X-Ray 02/11/25 05:07 IMPRESSION: Moderate-sized hiatal hernia. No evidence of acute pulmonary process. Head CT 02/11/25 05:41 IMPRESSION: Mild small vessel disease. No evidence of acute intracranial process. Laboratory Results WBC 5.45 10^3/uL (3.29-11.43) 02/11/25 04:45 RBC 4.20 10^6/uL (3.85-5.65) 02/11/25 04:45 Hgb 13.20 g/dL (11.27-16.99) 02/11/25 04:45 Hct 38.4 % (37-53) 02/11/25 04:45 MCV 91.4 fl (82-101) 02/11/25 04:45 MCH 31.4 pg (27-33) 02/11/25 04:45 MCHC 34.4 g/dL (30-55) 02/11/25 04:45 RDW 12.3 % (12.1-15.1) 02/11/25 04:45 Plt Count 173 10^3/cmm (157-399) 02/11/25 04:45 MPV 10.5 fL (7.4-10.4) H 02/11/25 04:45 Neut % (Auto) 55.2 % 02/11/25 04:45 Lymph % (Auto) 32.8 % 02/11/25 04:45 [place] % (Auto) 10.1 % 02/11/25 04:45 Eos % (Auto) 1.1 % 02/11/25 04:45 Baso % (Auto) 0.6 % 02/11/25 04:45 Neut # (Auto) 3.01 10^3/uL (1.8-7.7) 02/11/25 04:45 Lymph # (Auto) 1.8 10^3/uL (0.8-4.8) 02/11/25 04:45 [place] # (Auto) 0.6 10^3/uL (0.2-0.9) 02/11/25 04:45 Eos # (Auto) 0.1 10^3/uL (0.0-0.8) 02/11/25 04:45 Baso # (Auto) 0.0 10^3/uL (0.0-0.1) 02/11/25 04:45 Nucleated RBC % (auto) 0 % 02/11/25 04:45 Nucleated RBCs # 0.0 /100WBC 02/11/25 04:45 Sodium 142 mmol/L (136-145) 02/11/25 04:45 Potassium 3.8 mmol/L (3.5-5.1) 02/11/25 04:45 Chloride 105 mmol/L (98-107) 02/11/25 04:45 Carbon Dioxide 24 mmol/L (22-29) 02/11/25 04:45 Anion Gap 16.8 (5-19) 02/11/25 04:45 BUN 13 mg/dL (8-23) 02/11/25 04:45 Creatinine 0.8 mg/dL (0.7-1.2) 02/11/25 04:45 GFR Calculation Not Reportable 02/11/25 04:45 Glucose 87 mg/dL (65-115) 02/11/25 04:45 Calculated Osmolality 293 mOsm/kg (285-295) 02/11/25 04:45 Lactic Acid 1.7 mmol/L (0.5-2.2) 02/11/25 04:45 Calcium 9.7 mg/dL (8.5-10.5) 02/11/25 04:45 Total Bilirubin 0.7 mg/dL (0.15-1.2) 02/11/25 04:45 AST 18 U/L (0-40) 02/11/25 04:45 ALT < 5 U/L (0-41) 02/11/25 04:45 Alkaline Phosphatase 71 U/L (40-130) 02/11/25 04:45 Troponin T Baseline 37 ng/L (0-15) H 02/11/25 04:45 Troponin T 120 Minute 38.85 ng/L (0-15) H 02/11/25 06:32 Delta Troponin T 1.85 ABS# (0-10) 02/11/25 06:32 Troponin T Hi Sens 6Hr 40.78 ng/L (0-15) H 02/11/25 10:41 Troponin T Hi Sens 6Hr Delta 3.78 ng/L (0-12) 02/11/25 10:41 Total Protein 6.3 g/dL (6.6-8.7) L 02/11/25 04:45 Albumin 4.1 g/dL (3.5-5.2) 02/11/25 04:45 Globulin 2.2 g/dL (1.3-4.6) 02/11/25 04:45 TSH 1.61 uIU/mL (0.27-4.20) 02/11/25 04:45 Free T4 1.33 ng/dL (0.82-1.77) 02/11/25 04:45 Free T3 2.8 PG/ML (2.0-4.4) 02/11/25 04:45 Urine Color Yellow (Yellow) 02/11/25 05:23 Urine Appearance Clear (CLEAR) 02/11/25 05:23 Urine pH 5.5 (5-7) 02/11/25 05:23 Ur Specific [place] 1.023 (1.005-1.030) 02/11/25 05:23 Urine Protein Negative (Negative) 02/11/25 05:23 Urine Glucose (UA) Negative (Normal) 02/11/25 05:23 Urine Ketones Trace (Negative) 02/11/25 05:23 Urine Blood Negative (Negative) 02/11/25 05:23 Urine Nitrate Negative (Negative) 02/11/25 05:23 Urine Bilirubin Negative (Negative) 02/11/25 05:23 Urine Urobilinogen 1.0 mg/dL (Negative) 02/11/25 05:23 Ur Leukocyte Esterase Negative (Negative) 02/11/25 05:23 Urine RBC 0-2 /hpf (0-2) 02/11/25 05:23 Urine WBC 0-5 /hpf (0-5) 02/11/25 05:23 Ur Squamous Epith Cells 0-5 /hpf (0-5) 02/11/25 05:23 Amorphous Sediment Not Reportable 02/11/25 05:23 Urine Bacteria None seen /hpf (NONE) 02/11/25 05:23 Hyaline Casts 0-4 /lpf H 02/11/25 05:23 Salicylates < 0.3 mg/dL (3-10) L 02/11/25 04:45 Urine Opiates Screen Negative ng/mL (Negative) 02/11/25 05:23 Acetaminophen < 5.0 ug/mL (10-30) L 02/11/25 04:45 Ur Barbiturates Screen Negative ng/mL (Negative) 02/11/25 05:23 Ur Phencyclidine Scrn Negative ng/mL (Negative) 02/11/25 05:23 Ur Amphetamines Screen Negative ng/mL (Negative) 02/11/25 05:23 U Benzodiazepines Scrn Positive ng/mL (Negative) H 02/11/25 05:23 Urine Cocaine Screen Negative ng/mL (Negative) 02/11/25 05:23 U Marijuana (THC) Screen Negative ng/mL (Negative) 02/11/25 05:23 Ethyl Alcohol < 10 mg/dL (0-10) 02/11/25 04:45 Influenza A (PCR) Negative (Negative) 02/11/25 06:10 Influenza Type B (PCR) Negative (Negative) 02/11/25 06:10 RSV (PCR) Negative (Negative) 02/11/25 06:10 SARS-CoV-2 (PCR) Negative (Negative) 02/11/25 06:10 All radiology interpretation(s) finalized by discharge Discharge Plan Discharge Patient Disposition: er Psychiatric Hosp Clinical Impression: Lewy body dementia with behavioral disturbance, Parkinsonian features Condition: Stable Referrals: Mynor Tesfaye MD [Primary Care Provider, [facility]] Patient Instructions: Altered Mental Status (ED) Print Language: Eritrean Sign Out Sign Out Data: Patient Sign Out occurred on 02/11/25 at 07:08. Patient's care was discussed, and care was transferred from Maty Gonzales MD to Serge Mancera DO. Coding Level of Care Code ED Engine Lathe Operator for Jane Marks
--- NOTE | 2025-02-11 05:07 | XRR_ITS ---
PROCEDURE INFORMATION: Exam: XR Chest Exam date and time: 02/11/2025 5:26 AM Age: 79 years old Clinical indication: Shortness of breath TECHNIQUE: Imaging protocol: Radiologic exam of the chest. Views: 1 view. COMPARISON: CR XR chest 2V* [id number] 03/18/2022 11:51 AM FINDINGS: Tubes, catheters and devices: There is a right chest wall pacer again noted. Lungs: Unremarkable. No consolidation. Pleural spaces: Unremarkable. No pleural effusion. No pneumothorax. Heart/Mediastinum: There is a moderate-sized hiatal hernia. Bones/joints: Unremarkable. XR/XR chest 1V portable [id number] IMPRESSION: Moderate-sized hiatal hernia. No evidence of acute pulmonary process.
--- OUTSIDE RECORDS SUMMARY | 2025-02-11 05:08 | XMS_ITS | Encounter Summary ---
Author Organization [facility] Address [address] [place] [address] Care Team Providers Care Neurological Physiotherapist Name Role Phone Serge Mancera DO Primary Care Provider [phone] Encounter Details Date Type Department Care Team (Latest Contact Info) Description 04/26/2006 Outpatient [facility] Dermatology- [facility] [place] [address] [place] [address] Jacky Trent MD NO ADDRESS ON FILE Sebaceous Cyst (Primary Dx); Actinic Keratosis Social History Tobacco Use Types Packs/Day Years Used Date Smoking Tobacco: Never Assessed Sex and Gender Information Value Date Recorded Sex Assigned at Not on file Legal Sex Male 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
--- OUTSIDE RECORDS SUMMARY | 2025-02-11 05:08 | XMS_ITS | Encounter Summary ---
Author Organization [facility] Address [address] [place] [address] Care Team Providers Care Field Supervisor Seed Production Name Role Phone Serge Mancera DO Primary Care Provider Encounter Details Date Type Department Care Team (Latest Contact Info) Description 10/08/2003 Outpatient [facility] [address] [place] [id number] Ghulam Huynh MD [address] [place] [address] ABDOMINAL PAIN OTHER SPEC SITE (Primary Dx) Social History Tobacco Use Types Packs/Day Years Used Date Smoking Tobacco: Never Assessed Sex and Gender Information Value Date Recorded Sex Assigned at Not on file 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
--- OUTSIDE RECORDS SUMMARY | 2025-02-11 05:08 | XMS_ITS | Patient Health Record ---
Author Organization [facility] Address [address] [place], [place] [address] Care Team Providers Care Manager Hvac Name Role Phone Mynor Tesfaye MD Primary Care Provider Evangelina Mariano MD, Gabo Unavailable [phone] Reason For Referral No Information Medications Medication SIG (Take, Route, Fr equency, Duration) Notes Start Date End Date Status simvastatin 20 mg 1 tab orally once a day Active sertraline 50 mg 2 tabs orally once a day Active losartan 25 mg 1/2 tab orally once a day Active traZODone 50 mg 1 tab orally at bedt [place] for insomnia Active omeprazole 40 mg 1 cap orally once a day Active meclizine 25 mg 1 tab orally every 6 hours as needed for nausea Active prazosin 1 mg 1 cap orally at bedtime Active aspirin 325 mg 3 tabs orally once a day Active ibuprofen 200 mg 2-3 tabs po orally Q 6H prn headache Active clonazePAM 0.5 mg 1 tab orally at bedt [place], as needed for insomnia / night terrors Active dutasteride 0.5 mg 1 cap orally once a day Active Social History Tobacco Use: Social History Observation Description Date Details (start date - stop date) Former Smoker NA - NA alcohol Question Answer Notes Did you have a drink containing alcohol in the p ast year? No Points 0 Interpretation Negative Tobacco use: Question Answer Notes : former smoker How long has it been since you last smoked? > 10 years Problems Problem Type SNOMED Code ICD Code Onset Dates Problem Status W/U Status Risk Notes Problem High risk drug monitoring status (279796832) jail (current) use of opiate analgesic (Z79.891) Active confirmed Problem Hypersomnia (20060068) Hypersomnia, unspecified (G47.10) Active confirmed Problem Obstructive sleep apnea syndrome (84915770) Obstructive sleep apnea (adult) (pediatric) (G47.33) Active confirmed Problem Sleep disorder (30818817) Other sleep disorders (G47.8) Active confirmed Problem Acquired spondylolisthesis (012119631) Spondylolisthe sis, cervical region (M43.12) Active confirmed Problem Cervical spondylosis without myelopathy (668962144) Spondylosis without myelopathy or radiculopathy, cervical region (M47.812) Active confirmed Problem Spinal stenosis in cervical region (66301587) Spinal stenosis, cervical region (M48.02) Active confirmed Problem Cervicalgia (05464744) Cervicalgia (M54.2) Active confirmed Problem Headache (23135328) Headache (R51) Active confi rmed Problem Long-term current use of drug therapy (354253860) Other longterm (current) drug therapy (Z79.899) Active confirmed Problem Myalgia (64726196) Myalgia of auxiliary muscles, head and neck (M79.12) Active confirmed Plan Of Treatment No Information Insurance Providers Payer Name Payer Address Payer Phone Subscriber Number Group Number Insured Name Patient Relationship to Insured Coverage Start Date Coverage End Date WPS Medicare Part B Claims Department [address] [address] [place] [address] [id number] Tom Sims Jr Self - patient is the insured [facility] [employer] [address] [address] [place] [address] [id number] Tom Sims Jr Self - patient is the insured Medical (General) History Medical History History ICD Code Cervical spine foraminal stenosis causin g headaches Orthostatic hypotension High cholesterol Anxiety Arthritis Left knee pain Vertigo, equilibrium problems - prior me dical work up negative Surgical History Surgery Date(Month/Year) Repair of right torn mensicus, 2010 TURP 08/05/10 Lumbar spine surgery, performed at [facility] by Dr. Hay, 07/19/11 Right carpal tunnel release, right 10/17 Hernia repair, 02/28/14 Chalazion eye surgery, 03/08/16 Upper endoscopy, 07/01/16 LOOP recorder implant, perfo rmed at [facility] in [place], [place], 10/31/17 Left hip repair, performed at [facility] by Dr. Daigle, 03/31/18 Removal of basal cell carcinoma, perform ed in [place], [place], 09/2018 Repair of meniscus, left, performed at [facility] by Dr. Daigle, 11/29/18
--- OUTSIDE RECORDS SUMMARY | 2025-02-11 05:08 | XMS_ITS | Clinical Summary ---
Author Organization [facility] Address [address] [place] [address] Care Team Providers Care Ham Trimmer Name Role Phone Serge Mancera DO Primary Care Provider Allergies No known active allergies Medications simvastatin (ZOCOR) 20 mg Oral tablet Take 20 mg by mouth Daily LATE. Active aspirin (CHAU) 81 mg Oral Tab Take by mouth daily. Active MULTIVITAMIN WITH MINERALS (MULTI-VIT 55 PLUS ORAL) Take by mouth daily. Active lisinopril (PRINIVIL) 5 mg tablet Take 5 mg by mouth daily Take 1 tab daily. . Active finasteride (PROSCAR) 5 mg tablet Take 5 mg by mouth daily Take 1 tab daily. . Active omeprazole (PriLOSEC) 20 mg Capsule, Delayed Release(E.C.) Take 20 mg by mouth daily Take 1 tab daily. . Active SILDENAFIL CITRATE (SILDENAFIL ORAL) Take 20 mg by mouth 1 time daily as needed Take 1 tab daily as needed. . Active acetaminophen-c odeine (TYLENOL #2) 300-15 mg tablet Take 1 Tablet by mouth every 4 hours as needed for Pain, Moderate. Active clonazePAM (KlonoPIN) 0.5 mg Tablet Take 1 Tablet (0.5 mg) by mouth daily at bedtime And 1/2 pill around 2-3 am. 45 Tablet 5 12/01/2017 Active Active Problems Problem Noted Date Diagnosed Date Status post placement of imp lantable loop recorder - Medtronic 12/04/2017 Syncope 12/01/2017 Cervical stenosis of spine 10/19/2017 Orthostatic hypertension 10/19/2017 REM behavioral disorder 10/19/2017 Migraine without aura or status migrainosus 09/29 Chronic neck pain 10/19/2017 Family History Medical History Relation Name Comments Heart Disease Father Heart Disease Mother Relation Name Status Comments Father Mother Social History Tobacco Use Types Packs/Day Years Used Date Smoking Tobacco: Former Cigarettes Q uit: 10/19/1998 Smokeless Tobacco: Never Alcohol Use Standard Drinks/Week Comments No 0 (1 standard drink = 0.6 oz pur e alcohol) Sex and Gender Information Value Date Recorded Sex Assigned at Not on file 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 Gender Identity Not on file Sexual Orientation Not on file Last Filed Vital Signs Vital Sign Reading Time Taken Comments Blood Pressure 111/67 12/01/2017 11:22 AM CDT Pulse 94 12/01/2017 11:22 AM CDT Temperature 36.2 C (97.1 F) 11/20/2017 7:30 AM CDT Respiratory Rate 16 11/20/2017 7:30 AM CDT Oxygen Saturation 65% 11/20/2017 11:45 AM CDT Inhaled Oxygen Concentration - - Weight 85.5 kg (188 lb 9.6 oz) 12/01/2017 11:22 AM CDT Height 182.9 cm (6') 12/01/2017 11:22 AM CDT Body Mass Index 25.58 12/01/2017 11:22 AM CDT Plan of Treatment Health Maintenance Due Date Last Done Comments DTAP/TDAP/TD VACCINES (1 - Tdap) 1964 PNEUMOCOCCAL VACCINE 50+ YEARS (1 of 1 - PCV) 07/26/19 93 ZOSTER VACCINE (1 of 2) 1993 RSV VACCINE (60+ or ) (1 - 1-dose 75+ series) 2018 INFLUENZA VACCINE (#1) 2025 Insurance MEDICARE PART A AND B [place] Advance Directives For more information, please contact: [phone] * Full Code (Latest Code Status on File) Date Activated Date Inactivated Comments 11/20/2017 11:25 AM 11/20/2017 2:46 PM * Full Code Date Activated Date Inactivated Comments 11/20/2017 6:39 AM 11/20/2017 11:25 AM Care Teams Ham Trimmer Relationship Specialty Start Date End Date Serge Mancera DO [address] [phone] PCP - General Family Practice 10/19/17
--- OUTSIDE RECORDS SUMMARY | 2025-02-11 05:08 | XMS_ITS | Encounter Summary ---
Author Organization [facility] Address [address] [place] [address] Care Team Providers Care Steamship Agent Name Role Phone Serge Mancera DO Primary Care Provider [phone] Encounter Details Date Type Department Care Team ([facility] st Contact Info) Description 10/08/2003 Outpatient [facility] [address] [place] [phone] Ghulam Huynh MD [address] [place] [address] Social History Tobacco Use Types Packs/Day Years Used Date Smoking Tobacco: Never Assessed Sex and Gender Information Value Date Recorded Sex Assigned at Not on file 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
--- OUTSIDE RECORDS SUMMARY | 2025-02-11 05:08 | XMS_ITS | Encounter Summary ---
Author Organization [facility] Address [address] [place] [address] Care Team Providers Care Timber Watchman Name Role Phone Serge Mancera DO Primary Care Provider [phone] Reason for Referral * Auth/Cert (Routine) Specialty Diagnoses / Procedures Referred By Contac t Referred To Contact Cardiology Diagnoses Syncope, unspecified syncope type Procedures CL STUDY TILT Roseanne Pablo MD Phone: tel: fax: [facility] Cardiac Architectural Wood Model Maker [address] [place] [address] Phone: tel: fax: Referral ID Status Reason Start Date Expiration Date Visits Requested Visits Authorized [id number] Ordering Department To Schedule 11/08/2017 12/09/2018 1 1 Encounter Details Date Type Department Care Team (Late st Contact Info) Description 11/08/2017 Ancillary Orders [facility] Cardiology- [place] [address] [place] [address] Roseanne Pablo MD [address] [facility] [address] [place] [address] Syncope, unspecified syncope type Social History Tobacco Use Types Packs/Day Years Used Date Smoking Tobacco: Former Cigarettes Q uit: 10/19/1998 Smokeless Tobacco: Never Alcohol Use Standard Drinks/Week Comments No 0 (1 standard drink = 0.6 oz pur e alcohol) Sex and Gender Information Value Date Recorded Sex Assigned at Not on file 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 For 0 degrees we established baseline. The patient's blood pressure around 170-180 systolically and heart rate is about 70-80 beats per minute, oxygenation is 99%. Immediately tilted the patient to 70 degrees. The patient's blood pressure was maintained around 140-170, there was some blood pressure measurement problem and the patient was feeling fine. Heart rate increased from 70s to 80-90 beats per minute and with time the patient felt a little bit of chest discomfort about 15 minutes. At that time blood pressure was 120/80, heart rate was 90, and the patient has been stable. With time the patient's blood pressure around 110 and heart rate is about 100 beats per minute. At 30 minutes the patient's blood pressure is 106/100, does not have syncope or near syncope. Oxygenation is above 99%. FINAL SUMMARY: Negative tilt table test with normal heart rate response. Mild orthostatic hypertension seen, but no significant symptoms. SCL/tjb - transcribed in Epic - Roseanne Pablo MD ELECTROPHYSIOLOGY ORDERABLES Final Result documented in this encounter Visit Diagnoses Diagnosis Syncope, unspecified syncope type Syncope, unspecified syncope type- Primary documented in this encounter Care Teams Timber Watchman Relationship Specialty Start Date End Date Serge Mancera DO [address] [address] PCP - General Family Practice 10/19/17 documented as of this encounter
--- OUTSIDE RECORDS SUMMARY | 2025-02-11 05:08 | XMS_ITS | Clinical Summary ---
Author Organization [facility] Address [address] [place]: [place] [address] Care Team Providers Care Membership Sales Representative Name Role Phone Serge Mancera DO Primary Care Provider Allergies No known active allergies Medications acetaminophen-co deine (TYLENOL #2) 300-15 mg tablet Take 1 Tablet by mouth every 4 hours as needed for Pain, Moderate. 12/01/2017 Active multivitamin (DAILY-FLORA) tablet Take 1 Tablet by mouth daily. Active galantamine (RAZADYNE ER) 24 mg Extended Release 24 hour capsule Take 24 mg by mouth daily. 10/24/2024 Active ngznk-2i-[id number]-epa -fish oil 300-500 mg Capsule Take 300 mg by mouth daily. Active aspirin (ECOTRIN EC) 81 mg Tablet, Delayed Release (E.C.) Take 81 mg by mouth daily. Active citalopram (CeleXA) 20 mg tablet Take 20 mg by mouth daily. Active Active Problems Problem Noted Date Diagnosed Date Status post placement of imp lantable loop recorder - Medtronic 12/04/2017 Syncope 12/01/2017 Cervical stenosis of spine 10/19/2017 Orthostatic hypertension 10/19/2017 REM behavioral disorder 10/19/2017 Migraine without aura or status migrainosus 09/29 Chronic neck pain 10/19/2017 Encounters Date Type Department Care Team Description 01/15/2025 1:10 PM CDT Ancillary Procedure [facility] Spine and Pain Radiology [place] [address] [place] [address] Pola Naranjo FNP History of femur fracture 01/15/2025 12:40 PM CDT Office Visit [facility] Pain Management [place] [address] [place] [phone] Pola Naranjo FNP Chronic pain of left knee (Primary Dx); History of femur fracture; Left hip pain; Atrophy of muscle of left thigh 12/18/2024 External Device Data [facility] ABSTRACTION Provider, Abstract 12/18/2024 External Device Data [facility] ABSTRACTION Provider, Abstract 12/17/2024 External Device Data [facility] ABSTRACTION Provider, Abstract 12/11/2024 7:52 AM CDT - 12/11/2024 11:59 PM CDT Hospital Encounter [facility] [place] [address] [place] [phone] Lemuel Suarez PA Discharge Disposition: Home or Self Care 12/11/2024 7:27 AM CDT - 12/11/2024 11:59 PM CDT [facility] [place] [address] [place] [phone] Brennan Murphy MD Discharge Disposition: Home or Self Care 11/27/2024 8:16 AM CDT - 11/27/2024 11:59 PM CDT [facility] [place] [address] [place] [phone] Brennan Murphy MD Discharge Disposition: Home or Self Care 11/27/2024 7:42 AM CDT - 11/27/2024 11:59 PM CDT Hospital Encounter [facility] [place] [address] [place] [phone] Brennan Murphy MD Discharge Disposition: Home or Self Care 11/13/2024 7:39 AM CDT - 11/13/2024 11:59 PM CDT [facility] [place] [address] [place] [address] Brennan uMrphy MD Discharge Disposition: Home or Self Care 11/13/2024 7:20 AM CDT - 11/13/2024 11:59 PM CDT Hospital Encounter [facility] [place] [address] [place] [address] Brennan Murphy MD Discharge Disposition: Home or Self Care 11/12/2024 External Device Data [facility] ABSTRACTION Provider, Abstract from Last 3 Months Family History Medical History Relation Name Comments Heart Disease Father Heart Disease Mother Relation Name Status Comments Father Mother Social History Tobacco Use Types Packs/Day Years Used Date Smoking Tobacco: Former Cigarettes Q uit: 10/19/1998 Smokeless Tobacco: Never Alcohol Use Standard Drinks/Week Comments No 0 (1 standard drink = 0.6 oz pur e alcohol) Feeling Safe Answer Date Recorded Are you in a relationship wi th someone who hurts you emotionally and/or physically? 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 Gender Identity Not on file Sexual Orientation Not on file Last Filed Vital Signs Vital Sign Reading Time Taken Comments Blood Pressure 122/70 01/15/2025 12:21 PM CDT Pulse 62 12/11/2024 8:42 AM CDT Temperature 36.2 C (97.1 F) 11/20/2017 7:30 AM CDT Respiratory Rate 16 12/11/2024 8:42 AM CDT Oxygen Saturation 98% 12/11/2024 8:42 AM CDT Inhaled Oxygen Concentration - - Weight 69.9 kg (154 lb) 01/15/2025 12:21 PM CDT Height 180.3 cm (5' 11 ) 01/15/2025 12:21 PM CDT Body Mass Index 21.48 01/15/2025 12:21 PM CDT Plan of Treatment Health Maintenance Due Date Last Done Comments DTAP/TDAP/TD VACCINES (1 - Tdap) 1962 PNEUMOCOCCAL VACCINE 50+ YEA RS (1 of 1 - PCV) 1993 ZOSTER VACCINE (1 of 2) 1993 RSV VACCINE (60+ or ) (1 - 1-dose 75+ series) 2018 COVID-19 Vaccine (2023-2 5 season) 2024 06/15/2024, 05/15/2022, 05/14/2021, Additional history exists INFLUENZA VACCINE (#1) 2025 05/15/2022 Procedures Procedure Name Priority Date/Time Associated Diagnosis Comments XR FEMUR 2 VW LEFT Routine 01/15/2025 1: 25 PM CDT History of femur fracture XR FLUORO NEEDLE PLACEMENT Routine 12/11/2024 8:12 AM CDT XR FLUORO NEEDLE PLACEMENT Routine 11/27/2024 8:23 AM CDT XR FLUORO NEEDLE PLACEMENT Routine 11/13/2024 7:57 AM CDT from Last 3 Months Results * XR FEMUR 2 VW LEFT (01/15/2025 1:25 PM CDT) Anatomical Region Laterality Modality Lower Extremity Computed Radiogr aphy 01/15/2025 1:25 PM CDT Impressions 01/16/2025 6:50 AM CDT IMPRESSION: See below. Exam: XR FEMUR 2 VW LEFT Date/Time of Exam: 01/15/2025 1:25 PM Reason For Exam: See Diagnosis. Diagnosis: History of femur fracture. Findings: Comparison: None Diffuse osteopenia. The visualized hip and knee joints are well maintained. There is an intratrochanteric fracture of the proximal femur status post internal fixation. The femur fracture appears healed in near anatomic alignment. The surrounding soft tissues are unremarkable. There is vascular calcification. IMPRESSION: 1. No acute findings. Narrative Procedure Note Wolfgang Linton MD - 01/16/2025 IMPRESSION: See below. Exam: XR FEMUR 2 VW LEFT Date/Time of Exam: 01/15/2025 1:25 PM Reason For Exam: See Diagnosis. Diagnosis: History of femur fracture. Findings: Comparison: None Diffuse osteopenia. The visualized hip and knee joints are well maintained. There is an intratrochanteric fracture of the proximal femur status post internal fixation. The femur fracture appears healed in near anatomic alignment. The surrounding soft tissues are unremarkable. There is vascular calcification. IMPRESSION: 1. No acute findings. us Pola Jose A RING SPINNER DIAGNOST[facility] IMAGING ORDERABLES Fi nal Result * XR FLUORO NEEDLE PLACEMENT (12/11/2024 8:12 AM CDT) Only the most recent of3 resultswithin the time period is included. Narrative 12/11/2024 8:12 AM CDT Order information only. Exam was auto-finalized. Lemuel PERALES DIAGNOSTIC IMAGING ORDERAB LES Final Result from Last 3 Months Insurance MEDICARE PART A AND B [facility] [place] [address] Care Teams Membership Sales Representative Relationship Specialty Start Date End Date Serge Mancera DO [address] [address] PCP - General Family Practice 10/19/17
--- OUTSIDE RECORDS SUMMARY | 2025-02-11 05:08 | XMS_ITS | Encounter Summary ---
Author Organization [facility] Address [address] [place] [address] Care Team Providers Care Erp Technical Lead Name Role Phone Serge Mancera DO Primary Care Provider Encounter Details Date Type Department Care Team (Latest Contact Info) Description 04/26/2007 Outpatient [facility] Dermatology- [facility] [place] [address] [place] [address] Jacky Trent MD NO ADDRESS ON FILE Actinic Keratosis (Primary Dx) Social History Tobacco Use Types Packs/Day Years Used Date Smoking Tobacco: Never Assessed Sex and Gender Information Value Date Recorded Sex Assigned at Not on file 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
[2025-02-11 05:16] LABS: Hematocrit 38.4 % (37-53); Hemoglobin 13.20 g/dL (11.27-16.99); Mean Corpuscular HGB Conc 34.4 g/dL (30-55); Mean Corpuscular Hemoglobin 31.4 pg (27-33); Mean Corpuscular Volume 91.4 fl (82-101); Nucleated Red Blood Cells % 0 %; Platelet Count 173 10^3/cmm (157-399); Red Blood Count 4.20 10^6/uL (3.85-5.65); White Blood Count 5.45 10^3/uL (3.29-11.43)
--- NOTE | 2025-02-11 05:29 | ECG_ITS ---
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 Measurements Intervals [place] Rate: 67 P: 31 [place]: 234 QRS: -42 QRSD: 140 T: 38 QT: 444 QTc: 472 Interpretive Statements SINUS RHYTHM WITH FIRST DEGREE AV BLOCK LEFT AXIS DEVIATION [QRS AXIS < -30] RIGHT BUNDLE BRANCH BLOCK [120+ ms QRS DURATION, UPRIGHT V1, 40+ ms S IN I/aVL/V4/V5/V6] Compared to ECG 10/14/2021 17:14:14 First degree AV block now present Electronically Signed On 02-11-2025 09:45:37 CDT by No Dominguez M.D. [email or web address]
[2025-02-11 05:32] LABS: Troponin(5th) Baseline 37 ng/L (0-15)
[2025-02-11 05:33] LABS: Glucose Urine UA Negative (Normal); Nitrate Urine Negative (Negative); Specific Gravity, Urine 1.023 (1.005-1.030)
[2025-02-11 05:34] LABS: Alanine Aminotransferase < 5 U/L (0-41); Albumin Level 4.1 g/dL (3.5-5.2); Alkaline Phosphatase 71 U/L (40-130); Anion Gap 16.8 (5-19); Aspartate Amino Transferase 18 U/L (0-40); Blood Urea Nitrogen 13 mg/dL (8-23); Calcium 9.7 mg/dL (8.5-10.5); Carbon Dioxide 24 mmol/L (22-29); Chloride 105 mmol/L (98-107); Creatinine Clr Calc Pharmacy 79.0604; Globulin 2.2 g/dL (1.3-4.6); Glucose 87 mg/dL (65-115); Osmolality Calculated 293 mOsm/kg (285-295); Potassium 3.8 mmol/L (3.5-5.1); Sodium 142 mmol/L (136-145); Total Protein 6.3 g/dL (6.6-8.7)
[2025-02-11 05:35] LABS: Lactic Sepsis W/Reflex 1.7 mmol/L (0.5-2.2)
--- NOTE | 2025-02-11 05:41 | CTR_ITS ---
PROCEDURE INFORMATION: Exam: CT Head Without Contrast Exam date and time: 02/11/2025 5:43 AM Age: 79 years old Clinical indication: Altered mental status/memory loss; Confusion or disorientation; Additional info: Encephalopathy AMS TECHNIQUE: Imaging protocol: Computed tomography of the head without contrast. Radiation optimization: All CT scans at this facility use at least one of these dose optimization techniques: automated exposure control; mA and/or kV adjustment per patient size (includes targeted exams where dose is matched to clinical indication); or iterative reconstruction. COMPARISON: CT head wo con* [id number] 10/14/2021 11:43 AM RADIATION DOSE METRICS: Total DLP (mGy-cm): 1174.3 FINDINGS: Brain: There is mild small vessel disease. There is no evidence of acute parenchymal hemorrhage, extra-axial collection, or acute infarction. There is no mass effect, midline shift, or downward herniation. Cerebral ventricles: No ventriculomegaly. Paranasal sinuses: There is mild paranasal sinus mucosal thickening. Mastoid air cells: Visualized mastoid air cells are well aerated. Bones: Unremarkable. No acute fracture. Soft tissues: Unremarkable. CT/CT head wo con* [id number] IMPRESSION: Mild small vessel disease. No evidence of acute intracranial process.
[2025-02-11 06:02] LABS: PCP Screen Urine Negative (Negative)
[2025-02-11 06:16] LABS: Thyroid Stimulating Hormone 1.61 uIU/mL (0.27-4.20)
[2025-02-11 06:17] LABS: Acetaminophen < 5.0 ug/mL (10-30); Salicylate < 0.3 mg/dL (3-10)
[2025-02-11 06:18] LABS: Alcohol Level < 10 mg/dL (0-10)
[2025-02-11 07:06] LABS: Troponin 5 2HR 38.85 ng/L (0-15); Troponin 5 2HR Delta 1.85 ABS# (0-10)
[2025-02-11 07:30] LABS: Respiratory Syncytial Virus Ce NEGATIVE (Negative); SARS-CoV-2 PCR NEGATIVE (Negative)
--- NOTE | 2025-02-11 07:38 | PC.NURSE ---
patients informed this RN that patient has been having hallucinations, states that patient has been seeing cats and birds in the hospital room. Dr. Mancera notified.
[2025-02-11 08:07] LABS: Free T4 Free Thyroxine 1.33 ng/dL (0.82-1.77)
--- NOTE | 2025-02-11 11:07 | ECG_ITS ---
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 Measurements Intervals [place] Rate: 60 P: 62 [place]: 227 QRS: -43 QRSD: 140 T: 35 QT: 456 QTc: 456 Interpretive Statements SINUS RHYTHM WITH FIRST DEGREE AV BLOCK LEFT AXIS DEVIATION [QRS AXIS < -30] RIGHT BUNDLE BRANCH BLOCK [120+ ms QRS DURATION, UPRIGHT V1, 40+ ms S IN I/aVL/V4/V5/V6] Compared to ECG 02/11/2025 05:29:41 No significant changes Electronically Signed On 02-11-2025 15:00:46 CDT by Hemal Pradhan M.D. [email or web address]
[2025-02-11 11:10] LABS: Troponin 5 6HR 40.78 ng/L (0-15); Troponin 5 6HR Delta 3.78 ng/L (0-12)
--- NOTE | 2025-02-11 13:54 | ECG_ITS ---
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 Measurements Intervals Joseph Rate: 64 P: 52 IA: 233 QRS: -38 QRSD: 127 T: 41 QT: 434 QTc: 448 Interpretive Statements SINUS RHYTHM WITH FIRST DEGREE AV BLOCK LEFT AXIS DEVIATION [QRS AXIS < -30] RIGHT BUNDLE BRANCH BLOCK [120+ ms QRS DURATION, UPRIGHT V1, 40+ ms S IN I/aVL/V4/V5/V6] Compared to ECG 02/11/2025 10:57:15 No significant changes Electronically Signed On 02-11-2025 15:00:12 CDT by Hemal Pradhan M.D. [id number]
--- NOTE | 2025-02-11 16:10 | PC.NURSE ---
PT family updated that PT records have been sent to appropriate facilities and we are waiting to hear back. PT denies any needs at this time.
[2025-02-12] VITALS: RESP 16
[2025-02-12 04:00] VITALS: BP 146/73; PULSE 55; RESP 16; O2SAT 97
--- NOTE | 2025-02-12 10:55 | W.ED.AMS ---
HPI - Altered Mental Status General: Chief Complaint: Altered Mental Status Stated Complaint: FALL Time Seen by Provider: 02/11/25 05:04 History of Present Illness: This is an 79-year-old man with history of dementia, GERD and BPH who has been in the emergency room for the last couple of days awaiting placement for geriatric psychiatric behavioral issues. His says he has become more aggressive recently and more confused. is in the room with him today she says she has power of workers compensation claims examiner and she would like to have him placed possibly at [facility] in [place]. He has no complaints today. No fevers. No cough. No shortness of breath. No altered mental status at this point beyond his baseline. Related Data Home Medications ?Medication ?Instructions ?Recorded ?Confirmed acetaminophen 500 mg tablet 1,000 mg PO BID PRN Pain 04/04/23 02/11/25 (Tylenol Extra Strength) galantamine 24 mg 24 hr 24 mg PO QAM 11/09/24 02/11/25 capsule,extended release Previous Rx's ?Medication ?Instructions ?Recorded pantoprazole 40 mg tablet,delayed See Rx Instructions .Route 08/22/24 release .COMPLEX #180 tabs citalopram 20 mg tablet 20 mg PO QAM #90 tabs 09/09/24 dutasteride 0.5 mg capsule See Rx Instructions .Route 09/12/24 .COMPLEX #90 caps trazodone 100 mg tablet See Rx Instructions .Route 09/19/24 .COMPLEX #90 tabs lorazepam 1 mg tablet (Ativan) 1 mg PO DAILY #90 tabs 11/18/24 Allergies Allergy/AdvReac Type Severity Reaction Status Date / Time No Known Allergies Allergy Verified 04/10/24 09:27 Review of Systems Narrative: Constitutional symptoms: Negative except as documented in HPI. Skin symptoms: Negative except as documented in HPI. Eye symptoms: Negative except as documented in HPI. ENMT symptoms: Negative except as documented in HPI. Respiratory symptoms: Negative except as documented in HPI. Cardiovascular symptoms: Negative except as documented in HPI. Gastrointestinal symptoms: Negative except as documented in HPI. Genitourinary symptoms: Negative except as documented in HPI. Musculoskeletal symptoms: Negative except as documented in HPI. Neurologic symptoms: Negative except as documented in HPI. Psychiatric symptoms: Negative except as documented in HPI. Endocrine symptoms: Negative except as documented in HPI. 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 Daigle History of torn meniscus of right knee BPH (benign prostatic hyperplasia) Hyperlipidemia Surgical History H/O esophagogastroduodenoscopy 09/24/2019: Gastritis and hiatal hernia History of inguinal hernia repair Right History of colonoscopy (~2006) 09/24/2019: Sigmoid diverticulosis, 2 cm sessile polyp at the ileocecal valve History of carpal tunnel release History of spinal surgery 01/2011 [facility] L3-L4 lumbar decompression History of open reduction and internal fixation (ORIF) procedure left hip 2018 Family History Mother Diabetes Myocardial infarction Father Myocardial infarction Other CAD (coronary artery disease) Denies family history of Rheumatoid arthritis Lupus Anesthesia complication Bleeding disorder Cancer Social History Smoking and tobacco/nicotine status: former use of tobacco/nicotine Second hand smoke exposure: No Alcohol intake: never Substance/Drug Use: never Household members: spouse Marital status: Current occupational status: retired Physical Exam Narrative: General: Alert, no acute distress. Skin: Warm, dry. Head: Normocephalic, atraumatic. Neck: Supple, trachea midline. Eye: Extraocular movements are intact. Ears, nose, mouth and throat: mucosa moist. Cardiovascular: Regular, Normal peripheral perfusion. Respiratory: Lungs are clear to auscultation, respirations are non-labored, breath sounds are equal, Symmetrical chest wall expansion. Gastrointestinal: Soft, Nontender, Non distended Musculoskeletal: Normal ROM, no deformity. Neurological: Alert, pleasantly confused oriented to place and himself, No focal neurological deficit observed. Psychiatric: Cooperative Course Vital Signs: Vital signs: Vital Signs Temperature 97.6 F 02/11/25 04:59 Pulse Rate 55 L 02/12/25 04:00 Respiratory Rate 16 02/12/25 04:00 Blood Pressure 146/73 02/12/25 04:00 Pulse Oximetry 97 02/12/25 04:00 Oxygen Delivery Me thod Room Air 02/12/25 04:00 MDM - Altered Mental Status Medical Decision Making Assessment and plan: Dementia Behavioral issues -Looking for placement or evaluation by her psychiatrist here. - Discussed plan with and patient. Answered any questions. - Evaluation and treatment of this problem were appropriate in the emergency setting. Lab Data 02/11/25 04:45 02/11/25 04:45 Radiology Impressions Chest X-Ray 02/11/25 05:07 IMPRESSION: Moderate-sized hiatal hernia. No evidence of acute pulmonary process. Head CT 02/11/25 05:41 IMPRESSION: Mild small vessel disease. No evidence of acute intracranial process. Laboratory Results WBC 5.45 10^3/uL (3.29-11.43) 02/11/25 04:45 RBC 4.20 10^6/uL (3.85-5.65) 02/11/25 04:45 Hgb 13.20 g/dL (11.27-16.99) 02/11/25 04:45 Hct 38.4 % (37-53) 02/11/25 04:45 MCV 91.4 fl (82-101) 02/11/25 04:45 MCH 31.4 pg (27-33) 02/11/25 04:45 MCHC 34.4 g/dL (30-55) 02/11/25 04:45 RDW 12.3 % (12.1-15.1) 02/11/25 04:45 Plt Count 173 10^3/cmm (157-399) 02/11/25 04:45 MPV 10.5 fL (7.4-10.4) H 02/11/25 04:45 Neut % (Auto) 55.2 % 02/11/25 04:45 Lymph % (Auto) 32.8 % 02/11/25 04:45 [place] % (Auto) 10.1 % 02/11/25 04:45 Eos % (Auto) 1.1 % 02/11/25 04:45 Baso % (Auto) 0.6 % 02/11/25 04:45 Neut # (Auto) 3.01 10^3/uL (1.8-7.7) 02/11/25 04:45 Lymph # (Auto) 1.8 10^3/uL (0.8-4.8) 02/11/25 04:45 [place] # (Auto) 0.6 10^3/uL (0.2-0.9) 02/11/25 04:45 Eos # (Auto) 0.1 10^3/uL (0.0-0.8) 02/11/25 04:45 Baso # (Auto) 0.0 10^3/uL (0.0-0.1) 02/11/25 04:45 Nucleated RBC % (auto) 0 % 02/11/25 04:45 Nucleated RBCs # 0.0 /100WBC 02/11/25 04:45 Sodium 142 mmol/L (136-145) 02/11/25 04:45 Potassium 3.8 mmol/L (3.5-5.1) 02/11/25 04:45 Chloride 105 mmol/L (98-107) 02/11/25 04:45 Carbon Dioxide 24 mmol/L (22-29) 02/11/25 04:45 Anion Gap 16.8 (5-19) 02/11/25 04:45 BUN 13 mg/dL (8-23) 02/11/25 04:45 Creatinine 0.8 mg/dL (0.7-1.2) 02/11/25 04:45 GFR Calculation Not Reportable 02/11/25 04:45 Glucose 87 mg/dL (65-115) 02/11/25 04:45 Calculated Osmolality 293 mOsm/kg (285-295) 02/11/25 04:45 Lactic Acid 1.7 mmol/L (0.5-2.2) 02/11/25 04:45 Calcium 9.7 mg/dL (8.5-10.5) 02/11/25 04:45 Total Bilirubin 0.7 mg/dL (0.15-1.2) 02/11/25 04:45 AST 18 U/L (0-40) 02/11/25 04:45 ALT < 5 U/L (0-41) 02/11/25 04:45 Alkaline Phosphatase 71 U/L (40-130) 02/11/25 04:45 Troponin T Baseline 37 ng/L (0-15) H 02/11/25 04:45 Troponin T 120 Minute 38.85 ng/L (0-15) H 02/11/25 06:32 Delta Troponin T 1.85 ABS# (0-10) 02/11/25 06:32 Troponin T Hi Sens 6Hr 40.78 ng/L (0-15) H 02/11/25 10:41 Troponin T Hi Sens 6Hr Delta 3.78 ng/L (0-12) 02/11/25 10:41 Total Protein 6.3 g/dL (6.6-8.7) L 02/11/25 04:45 Albumin 4.1 g/dL (3.5-5.2) 02/11/25 04:45 Globulin 2.2 g/dL (1.3-4.6) 02/11/25 04:45 TSH 1.61 uIU/mL (0.27-4.20) 02/11/25 04:45 Free T4 1.33 ng/dL (0.82-1.77) 02/11/25 04:45 Free T3 2.8 PG/ML (2.0-4.4) 02/11/25 04:45 Urine Color Yellow (Yellow) 02/11/25 05:23 Urine Appearance Clear (CLEAR) 02/11/25 05:23 Urine pH 5.5 (5-7) 02/11/25 05:23 Ur Specific Waddy 1.023 (1.005-1.030) 02/11/25 05:23 Urine Protein Negative (Negative) 02/11/25 05:23 Urine Glucose (UA) Negative (Normal) 02/11/25 05:23 Urine Ketones Trace (Negative) 02/11/25 05:23 Urine Blood Negative (Negative) 02/11/25 05:23 Urine Nitrate Negative (Negative) 02/11/25 05:23 Urine Bilirubin Negative (Negative) 02/11/25 05:23 Urine Urobilinogen 1.0 mg/dL (Negative) 02/11/25 05:23 Ur Leukocyte Esterase Negative (Negative) 02/11/25 05:23 Urine RBC 0-2 /hpf (0-2) 02/11/25 05:23 Urine WBC 0-5 /hpf (0-5) 02/11/25 05:23 Ur Squamous Epith Cells 0-5 /hpf (0-5) 02/11/25 05:23 Amorphous Sediment Not Reportable 02/11/25 05:23 Urine Bacteria None seen /hpf (NONE) 02/11/25 05:23 Hyaline Casts 0-4 /lpf H 02/11/25 05:23 Salicylates < 0.3 mg/dL (3-10) L 02/11/25 04:45 Urine Opiates Screen Negative ng/mL (Negative) 02/11/25 05:23 Acetaminophen < 5.0 ug/mL (10-30) L 02/11/25 04:45 Ur Barbiturates Screen Negative ng/mL (Negative) 02/11/25 05:23 Ur Phencyclidine Scrn Negative ng/mL (Negative) 02/11/25 05:23 Ur Amphetamines Screen Negative ng/mL (Negative) 02/11/25 05:23 U Benzodiazepines Scrn Positive ng/mL (Negative) H 02/11/25 05:23 Urine Cocaine Screen Negative ng/mL (Negative) 02/11/25 05:23 U Marijuana (THC) Screen Negative ng/mL (Negative) 02/11/25 05:23 Ethyl Alcohol < 10 mg/dL (0-10) 02/11/25 04:45 Influenza A (PCR) Negative (Negative) 02/11/25 06:10 Influenza Type B (PCR) Negative (Negative) 02/11/25 06:10 RSV (PCR) Negative (Negative) 02/11/25 06:10 SARS-CoV-2 (PCR) Negative (Negative) 02/11/25 06:10 No radiology studies performed this visit Discharge Plan Discharge Patient Disposition: Xfer Psychiatric Hosp Clinical Impression: Lewy body dementia with behavioral disturbance, Parkinsonian features Condition: Stable Referrals: Mynor Tesfaye MD [Primary Care Provider, Family Practice] Patient Instructions: Altered Mental Status (ED) Print Language: Tamazight Sign Out Sign Out Data: Patient Sign Out occurred on 02/11/25 at 07:08. Patient's care was discussed, and care was transferred from Maty Gonzales MD to Serge Mancera DO. Coding Level of Care Code ED Content Publisher for Jane Marks
[2025-02-12 15:30] VITALS: BP 134/72; PULSE 67; O2SAT 96
== END 2025-02-12 18:53 ==
PROVIDERS: Family Medicine; Emergency Provider Emergency Medicine; PCP Family Medicine
DX: G31.83 Neurocognitive disorder with Lewy bodies (principal); F02.811 Dementia in other diseases classified elsewhere, unspecified severity, with agitation; G20.C Parkinsonism, unspecified; Z11.52 Encounter for screening for COVID-19; Z87.891 Personal history of nicotine dependence; E78.5 Hyperlipidemia, unspecified; Z85.828 Personal history of other malignant neoplasm of skin
CPT/HCPCS: 36415; 70450; 71045; 80053; 80306; 80307; 81001; 83605; 84439; 84443; 84481; 84484; 85025; 87040; 87637; 93005; 96360; 99285; J7030; J9999

== ENCOUNTER → 2025-03-10 13:55 | Outpatient (BNVA) | payer MEDICARE, OTHER, SELFPAY | PROVIDERS: PCP Family Medicine; Visit Provider Internal Medicine Rheumatology | DX: M81.0 Age-related osteoporosis without current pathological fracture (principal); Z79.899 Other long term (current) drug therapy | CPT/HCPCS: 99214 ==

== ENCOUNTER → 2025-03-12 14:42 | Outpatient (BNVA) | payer MEDICARE, OTHER, SELFPAY | PROVIDERS: PCP Family Medicine; Visit Provider Internal Medicine Rheumatology | DX: M25.562 Pain in left knee (principal); M17.12 Unilateral primary osteoarthritis, left knee | CPT/HCPCS: 20610; J1010; J9999 ==

== ENCOUNTER → 2025-03-24 08:59 | Outpatient (BNVA) | payer MEDICARE, OTHER, SELFPAY | PROVIDERS: PCP Family Medicine; Visit Provider Orthopaedic Surgery | DX: M25.562 Pain in left knee (principal); G89.29 Other chronic pain | CPT/HCPCS: 73562; 99214 ==

== ENCOUNTER → 2025-04-08 11:28 | Outpatient (BNVA) | payer MEDICARE, OTHER, SELFPAY | PROVIDERS: PCP Family Medicine; Visit Provider Specialist | DX: R41.3 Other amnesia (principal) | CPT/HCPCS: 96116; 99215 ==

== ENCOUNTER 2025-04-23 12:39 | Outpatient (CLI) | payer MEDICARE, OTHER, SELFPAY ==
[2025-04-23 14:00] LABS: Albumin Level 4.1 g/dL (3.5-5.2); Calcium 9.8 mg/dL (8.5-10.5)
== END 2025-04-23 12:40 | disposition home or self-care (01) ==
PROVIDERS: Internal Medicine Rheumatology; PCP Family Medicine; Visit Provider Urology
DX: M81.0 Age-related osteoporosis without current pathological fracture (principal); Z12.5 Encounter for screening for malignant neoplasm of prostate
CPT/HCPCS: 36415; 82040; 82306; 82310; 82565

== ENCOUNTER 2025-04-24 14:00 | Outpatient (CLI) | payer MEDICARE, OTHER, SELFPAY | END 2025-04-24 14:01 | disposition home or self-care (01) | PROVIDERS: PCP Family Medicine; Visit Provider Internal Medicine Interventional Cardiology | DX: Z12.5 Encounter for screening for malignant neoplasm of prostate (principal) | CPT/HCPCS: G0103 ==

== ENCOUNTER → 2025-06-02 13:49 | Outpatient (BNVA) | payer MEDICARE, OTHER, SELFPAY | PROVIDERS: PCP Family Medicine; Visit Provider Nurse Practitioner Family | DX: L71.8 Other rosacea (principal); L57.8 Other skin changes due to chronic exposure to nonionizing radiation; X32.XXXA Exposure to sunlight, initial encounter; L81.4 Other melanin hyperpigmentation; L82.1 Other seborrheic keratosis; D18.01 Hemangioma of skin and subcutaneous tissue; D69.2 Other nonthrombocytopenic purpura; Z08 Encounter for follow-up examination after completed treatment for malignant neoplasm; Z85.820 Personal history of malignant melanoma of skin; L57.0 Actinic keratosis | CPT/HCPCS: 17004; 99214 ==